=== PATIENT | female | born 1945 | race Caucasian/White ===

== ENCOUNTER 2016-05-05 10:39 | Outpatient (RCR) | payer MEDICARE, OTHER ==
--- OUTSIDE RECORDS SUMMARY | 2016-04-05 13:24 | XMS REPORT | Continuity of Care Document ---
Author Author [facility] Organization [facility] Address Unknown Phone Unavailable Care Team Providers Care Ell Teacher Name Role Phone Junie Peace PCP [phone] Source Comments Some departments are not documenting in the electronic medical record. If you do not see the information that you expected, contact Release of Information in the Health Information Management department at [phone] for further assistance in locating additional records.[facility] Active Allergies and Adverse Reactions Not on File Current Medications Not on file Active Problems Not on file Most Recent Encounters Date Type Specialty Providers Description [facility]2016 [facility] Airway obstruction due to Encounter foreign body, initial encounter Social History Tobacco Use Types Packs/Day Years Used Date Never Assessed Plan of Care Health Maintenance Due Date Last Done Comments Physical (Comprehensive) 1952 Exam Pertussis Vaccine 1954 Tetanus Vaccine 1960 Breast Cancer Screening 1983 Colorectal Cancer 1993 Screening Shingles Vaccine 2003 Osteoporosis Screening 2008 Prevnar/Pneumovax (#1) 2008 Influenza Vaccine 02/26/2016 Results from Last 3 Months Not on file
[2016-04-05 14:26] LABS: BASOPHILS % (AUTO) 0 % (0-10); EOSINOPHILS # (AUTO) 0.1 10^3/uL (0.0-0.3); EOSINOPHILS % (AUTO) 1 % (0-10); LYMPHOCYTES # (AUTO) 0.5 X 10^3 (1.0-4.0); LYMPHOCYTES % (AUTO) 7 % (12-44); MEAN CORPUSCULAR HEMOGLOBIN 31 PG (25-34); MEAN CORPUSCULAR HGB CONC 31 G/DL (32-36); MEAN CORPUSCULAR VOLUME 99 FL (80-99); MEAN PLATELET VOLUME 7.9 FL (7.4-10.4); MONOCYTES # (AUTO) 0.4 X 10^3 (0.0-1.0); MONOCYTES % (AUTO) 6 % (0-12); NEUTROPHILS # (AUTO) 5.8 X 10^3 (1.8-7.8); NEUTROPHILS % (AUTO) 85 % (42-75); PLATELET COUNT 289 10^3/uL (130-400); RED BLOOD COUNT 3.63 10^6/uL (4.35-5.85); RED CELL DISTRIBUTION WIDTH 16.6 % (10.0-14.5); WHITE BLOOD COUNT 6.9 10^3/uL (4.3-11.0)
[2016-04-05 15:27] LABS: ALANINE AMINOTRANSFERASE 16 U/L (0-55); ANION GAP 13 MMOL/L (5-14); ASPARTATE AMINO TRANSFERASE 20 U/L (5-34); BILIRUBIN,TOTAL 0.2 MG/DL (0.1-1.0); BLOOD UREA NITROGEN 26 MG/DL (7-18); BUN/CREATININE RATIO 31; CARBON DIOXIDE 24 MMOL/L (21-32); CHLORIDE 102 MMOL/L (98-107); CREATININE SERUM 0.84 MG/DL (0.60-1.30); GFR ESTIMATED > 60; GLUCOSE 116 MG/DL (70-105); LACTATE DEHYDROGENASE 234 U/L (125-220); POTASSIUM 4.8 MMOL/L (3.6-5.0); SODIUM 139 MMOL/L (135-145); TOTAL PROTEIN 6.8 G/DL (6.4-8.2); URIC ACID 5.5 MG/DL (2.6-7.2)
[~2016-05-05 10:39] MED LIST: ACET1TAB19 PO; ACHYD1T PO; ACLI400A IH; ACYC400T PO; ASP325T PO; ASPI1TAB PO; ATRV10T PO; BIOT25006 PO; BREO ELLIPTA IH; BUDE10.22 IH; BUDE6HFA IH; CALC-671 PO; CALC-78 PO; CALC-80 PO; CELE200C PO; CHOL200025 PO; CHOL200035 PO; CHOL400T29 PO; CLNZ.5T PO; CLON0.5T3 PO; CLON1TAB PO; CLON1TAB3 PO; CYCL10TA45 PO; DCS100C PO; DULO30CA3 PO; DULO60CA6 PO; ENAL10TA PO; ENAL2.5T PO; FLAX SEED OIL PO; FLAX100011 PO; FLAX100032 PO; FLUT1AER IH; GABA300C PO; GBPN300C PO; HYDR-2890 PO; HYDR-3063 PO; HYDR-3714 PO; HYDR-3816 PO; HYDR-3820 PO; HYDR1TAB66 PO; IBP600T1 PO; IBUP-30 PO; IBUP400T22 PO; IPRA3AMP IH; IRON150C3 PO; LATA2.5D5 OS; LEVO100T46 PO; LEVO75TA PO; LEVO75TA59 PO; LEVO88TA54 PO; LORA10TA7 PO; MAGN400C PO; MAGN500C4 PO; MELO15TA39 PO; METF-472 PO; METF500T8 PO; METO25TA2 PO; METR500T PO; MG T1TAB PO; MONT10TA21 PO; MORP-33 PO; MORP-34 PO; MTF500T PO; MULT-974 PO; NIFEREX PO; OMEG1CAP51 PO; OMEG1CAP57 PO; OMEP-10 PO; PANT40TA PO; PANT40TA2 PO; PRAS1TAB2 PO; PRD10T PO; PRD20T PO; PRED5TAB PO; ROPI0.25 PO; RT-ALBUINH IH; SENN-75 PO; SULF-222 PO; TBDXOO OS; TIZA4CAP PO; TML5OP2.5 OS; TRAM50TA2 PO; ZLP10T PO; [UNRECOGNIZED DRUG - CODE] OS; breo ellipta PO; calcium PO; stool softener PO
[2016-05-05 11:22] LABS: BASOPHILS % (AUTO) 0 % (0-10); EOSINOPHILS # (AUTO) 0.1 10^3/uL (0.0-0.3); EOSINOPHILS % (AUTO) 1 % (0-10); LYMPHOCYTES # (AUTO) 0.6 X 10^3 (1.0-4.0); LYMPHOCYTES % (AUTO) 6 % (12-44); MEAN CORPUSCULAR HEMOGLOBIN 31 PG (25-34); MEAN CORPUSCULAR HGB CONC 31 G/DL (32-36); MEAN CORPUSCULAR VOLUME 100 FL (80-99); MEAN PLATELET VOLUME 8.1 FL (7.4-10.4); MONOCYTES # (AUTO) 0.7 X 10^3 (0.0-1.0); MONOCYTES % (AUTO) 8 % (0-12); NEUTROPHILS # (AUTO) 7.9 X 10^3 (1.8-7.8); NEUTROPHILS % (AUTO) 85 % (42-75); PLATELET COUNT 303 10^3/uL (130-400); RED BLOOD COUNT 3.75 10^6/uL (4.35-5.85); RED CELL DISTRIBUTION WIDTH 16.3 % (10.0-14.5); WHITE BLOOD COUNT 9.3 10^3/uL (4.3-11.0)
[2016-05-05 12:11] LABS: ALANINE AMINOTRANSFERASE 24 U/L (0-55); ALBUMIN 4.3 G/DL (3.2-4.5); ANION GAP 8 MMOL/L (5-14); ASPARTATE AMINO TRANSFERASE 22 U/L (5-34); BILIRUBIN,TOTAL 0.5 MG/DL (0.1-1.0); BLOOD UREA NITROGEN 26 MG/DL (7-18); BUN/CREATININE RATIO 30; CALCIUM 9.2 MG/DL (8.5-10.1); CARBON DIOXIDE 30 MMOL/L (21-32); CHLORIDE 101 MMOL/L (98-107); CREATININE SERUM 0.86 MG/DL (0.60-1.30); GFR ESTIMATED > 60; GLUCOSE 104 MG/DL (70-105); LACTATE DEHYDROGENASE 260 U/L (125-220); POTASSIUM 4.8 MMOL/L (3.6-5.0); SODIUM 139 MMOL/L (135-145); TOTAL PROTEIN 7.4 G/DL (6.4-8.2); URIC ACID 5.4 MG/DL (2.6-7.2)
== END 2016-07-04 | disposition home or self-care (01) ==
LOC: ONC 10:39
PROVIDERS: ATTEND Internal Medicine Hematology & Oncology
DX: C84.40 Peripheral T-cell lymphoma, not elsewhere classified, unspecified site (principal); M06.9 Rheumatoid arthritis, unspecified; E11.9 Type 2 diabetes mellitus without complications; J44.9 Chronic obstructive pulmonary disease, unspecified; I25.10 Atherosclerotic heart disease of native coronary artery without angina pectoris; I11.0 Hypertensive heart disease with heart failure; I50.9 Heart failure, unspecified; E03.9 Hypothyroidism, unspecified; D50.9 Iron deficiency anemia, unspecified; Z79.899 Other long term (current) drug therapy
CPT/HCPCS: 36415; 80053; 83615; 84550; 85025; 99213

== ENCOUNTER 2016-10-14 09:47 | Outpatient (RCR) | payer MEDICARE, OTHER ==
[2016-10-14 10:10] LABS: BASOPHILS # (AUTO) 0.1 10^3/uL (0.0-0.1); BASOPHILS % (AUTO) 0 % (0-10); EOSINOPHILS # (AUTO) 0.2 10^3/uL (0.0-0.3); EOSINOPHILS % (AUTO) 2 % (0-10); LYMPHOCYTES # (AUTO) 0.6 X 10^3 (1.0-4.0); LYMPHOCYTES % (AUTO) 6 % (12-44); MEAN CORPUSCULAR HEMOGLOBIN 31 PG (25-34); MEAN CORPUSCULAR HGB CONC 31 G/DL (32-36); MEAN CORPUSCULAR VOLUME 100 FL (80-99); MEAN PLATELET VOLUME 8.2 FL (7.4-10.4); MONOCYTES # (AUTO) 0.5 X 10^3 (0.0-1.0); MONOCYTES % (AUTO) 5 % (0-12); NEUTROPHILS # (AUTO) 9.8 X 10^3 (1.8-7.8); NEUTROPHILS % (AUTO) 88 % (42-75); PLATELET COUNT 525 10^3/uL (130-400); RED BLOOD COUNT 3.31 10^6/uL (4.35-5.85); RED CELL DISTRIBUTION WIDTH 14.5 % (10.0-14.5); WHITE BLOOD COUNT 11.2 10^3/uL (4.3-11.0)
[2016-10-14 11:03] LABS: ALBUMIN 3.9 G/DL (3.2-4.5); BILIRUBIN,TOTAL 0.3 MG/DL (0.1-1.0); CALCIUM 9.6 MG/DL (8.5-10.1); CREATININE SERUM 0.99 MG/DL (0.60-1.30); POTASSIUM 5.1 MMOL/L (3.6-5.0); TOTAL PROTEIN 7.2 G/DL (6.4-8.2); URIC ACID 6.5 MG/DL (2.6-7.2)
[2016-12-16] MEDS ORDERED: GABA-488 PO (09:08)
[2016-12-16] MEDS ORDERED: METF500T4 PO (09:08)
[2016-12-16] MEDS ORDERED: DICL100G18 TOP (09:08)
[2016-12-16] MEDS ORDERED: HYDR-3820 PO (09:08)
[2016-12-16] MEDS ORDERED: PANT40TA3 PO (09:08)
[2016-12-16] MEDS ORDERED: PRD20T PO (09:08)
[2016-12-16] MEDS ORDERED: CLOB15OI2 TOP (09:08)
[2016-12-16] MEDS ORDERED: MORP60TA52 PO (09:08)
[2016-12-16] MEDS ORDERED: UMEC62.5 IH (09:23)
[2016-12-20] MEDS ORDERED: METH40VI2 IV (10:21)
[2016-12-20] MEDS ORDERED: TACR30OI4 TP (10:21)
[2016-12-20] MEDS ORDERED: AMLO10TA2 PO (10:21)
[2016-12-20] MEDS ORDERED: MORP-33 PO (10:21)
[2016-12-20] MEDS ORDERED: METO50TA2 PO (10:21)
[2016-12-20] MEDS ORDERED: FURO10VI IVP (10:21)
[2016-12-29] MEDS ORDERED: PRD20T PO (09:28)
[2016-12-29] MEDS ORDERED: POTA10TA6 PO (09:28)
[2016-12-29] MEDS ORDERED: FAMO20TA5 PO (09:28)
== END 2017-01-12 | disposition home or self-care (01) ==
LOC: ONC 09:47
PROVIDERS: ATTEND Internal Medicine Hematology & Oncology
DX: C84.40 Peripheral T-cell lymphoma, not elsewhere classified, unspecified site (principal); M06.9 Rheumatoid arthritis, unspecified; E11.9 Type 2 diabetes mellitus without complications; J44.9 Chronic obstructive pulmonary disease, unspecified; I25.10 Atherosclerotic heart disease of native coronary artery without angina pectoris; I11.0 Hypertensive heart disease with heart failure; I50.9 Heart failure, unspecified; E03.9 Hypothyroidism, unspecified; D50.9 Iron deficiency anemia, unspecified; Z79.899 Other long term (current) drug therapy
CPT/HCPCS: 36415; 80053; 83615; 84550; 85025; 99213

== ENCOUNTER → 2016-10-14 | Outpatient (CLI) | payer MEDICARE, OTHER ==
--- NOTE | 2016-10-14 15:25 | Diagnostic Imaging Report ---
PA and lateral views of the chest. INDICATION: Left lower lobe pneumonia. FINDINGS: When compared to 02/28/2016, there is interval clearance of the infiltrate in the right lung base. There is still prominence of the right mediastinal contour at the level of the ascending aorta. There was a concurrent CTA performed at the time of the previous scan which demonstrated dilatation of the ascending aorta to 4.2 cm and dilatation of the pulmonary artery. The heart size is at the upper limits of normal. No effusion or pneumothorax. Advanced degenerative changes in the thoracic spine are seen and bilateral shoulder replacement noted. IMPRESSION: Prominent right mediastinal contour appears to relate to mild aneurysmal dilatation of the ascending aorta and dilated pulmonary artery is probably related to pulmonary hypertension. No acute process. Dictated by: Dictated on workstation # [id number]
== END ==
LOC: RAD 11:59
PROVIDERS: ATTEND Nurse Practitioner Family
DX: J18.9 Pneumonia, unspecified organism (principal)
CPT/HCPCS: 71020

== ENCOUNTER → 2016-12-06 | Outpatient (CLI) | payer MEDICARE, OTHER ==
--- NOTE | 2016-12-06 13:48 | Diagnostic Imaging Report ---
PROCEDURE: CT chest without contrast. TECHNIQUE: Multiple contiguous axial images were obtained through the chest without the use of intravenous contrast. INDICATION: Pneumonia. FINDINGS: There is coronary artery atherosclerosis. There is aortic calcific atherosclerosis. There is no hilar or mediastinal lymphadenopathy. There is minimal discoid atelectasis at the lung bases. The infiltrates in the right lung have nearly completely resolved since the prior exam from 02/28/2016. There is a 6 mm patchy density in the right upper lobe on page 15 of 55 that was not present previously. It could represent small inflammatory reaction, but a short interval CT followup in 3-4 months is recommended. IMPRESSION: Interval clearing of the previously seen infiltrates in the lungs. There is a small new opacity in the right upper lobe that warrants followup. Dictated by: Dictated on workstation # [id number]
== END ==
LOC: RAD 13:29
PROVIDERS: ATTEND Internal Medicine Critical Care Medicine
DX: R09.02 Hypoxemia (principal); J18.9 Pneumonia, unspecified organism; M79.7 Fibromyalgia; M19.90 Unspecified osteoarthritis, unspecified site
CPT/HCPCS: 71250

== ENCOUNTER 2016-12-09 08:00 | Outpatient (RCR) | payer MEDICARE, OTHER ==
[2016-12-16] MEDS ORDERED: METF500T4 PO (09:08)
[2016-12-16] MEDS ORDERED: HYDR-3820 PO (09:08)
[2016-12-16] MEDS ORDERED: DICL100G18 TOP (09:08)
[2016-12-16] MEDS ORDERED: PANT40TA3 PO (09:08)
[2016-12-16] MEDS ORDERED: MORP60TA52 PO (09:08)
[2016-12-16] MEDS ORDERED: PRD20T PO (09:08)
[2016-12-16] MEDS ORDERED: GABA-488 PO (09:08)
[2016-12-16] MEDS ORDERED: CLOB15OI2 TOP (09:08)
[2016-12-16] MEDS ORDERED: UMEC62.5 IH (09:23)
[2016-12-20] MEDS ORDERED: METO50TA2 PO (10:21)
[2016-12-20] MEDS ORDERED: FURO10VI IVP (10:21)
[2016-12-20] MEDS ORDERED: METH40VI2 IV (10:21)
[2016-12-20] MEDS ORDERED: AMLO10TA2 PO (10:21)
[2016-12-20] MEDS ORDERED: MORP-33 PO (10:21)
[2016-12-20] MEDS ORDERED: TACR30OI4 TP (10:21)
[2016-12-29] MEDS ORDERED: FAMO20TA5 PO (09:28)
[2016-12-29] MEDS ORDERED: POTA10TA6 PO (09:28)
[2016-12-29] MEDS ORDERED: PRD20T PO (09:28)
== END 2017-02-06 | disposition home or self-care (01) ==
LOC: PULM 08:00
PROVIDERS: ATTEND Internal Medicine Critical Care Medicine
DX: R09.02 Hypoxemia (principal); J18.9 Pneumonia, unspecified organism; M79.7 Fibromyalgia; M19.90 Unspecified osteoarthritis, unspecified site
CPT/HCPCS: 99211

== ENCOUNTER 2016-12-10 08:04 | Outpatient (RCR) | payer MEDICARE, OTHER ==
[2016-12-16] MEDS ORDERED: METF500T4 PO (09:08)
[2016-12-16] MEDS ORDERED: CLOB15OI2 TOP (09:08)
[2016-12-16] MEDS ORDERED: GABA-488 PO (09:08)
[2016-12-16] MEDS ORDERED: DICL100G18 TOP (09:08)
[2016-12-16] MEDS ORDERED: PANT40TA3 PO (09:08)
[2016-12-16] MEDS ORDERED: MORP60TA52 PO (09:08)
[2016-12-16] MEDS ORDERED: HYDR-3820 PO (09:08)
[2016-12-16] MEDS ORDERED: PRD20T PO (09:08)
[2016-12-16] MEDS ORDERED: UMEC62.5 IH (09:23)
[2016-12-20] MEDS ORDERED: METH40VI2 IV (10:21)
[2016-12-20] MEDS ORDERED: MORP-33 PO (10:21)
[2016-12-20] MEDS ORDERED: FURO10VI IVP (10:21)
[2016-12-20] MEDS ORDERED: AMLO10TA2 PO (10:21)
[2016-12-20] MEDS ORDERED: TACR30OI4 TP (10:21)
[2016-12-20] MEDS ORDERED: METO50TA2 PO (10:21)
[2016-12-29] MEDS ORDERED: FAMO20TA5 PO (09:28)
[2016-12-29] MEDS ORDERED: POTA10TA6 PO (09:28)
[2016-12-29] MEDS ORDERED: PRD20T PO (09:28)
== END 2017-01-06 | disposition home or self-care (01) ==
LOC: WOUNDCARE 08:04
PROVIDERS: ATTEND Surgery
DX: E11.622 Type 2 diabetes mellitus with other skin ulcer (principal); L95.8 Other vasculitis limited to the skin; L97.322 Non-pressure chronic ulcer of left ankle with fat layer exposed; L97.222 Non-pressure chronic ulcer of left calf with fat layer exposed; L97.312 Non-pressure chronic ulcer of right ankle with fat layer exposed; C91.51 Adult T-cell lymphoma/leukemia (HTLV-1-associated), in remission
CPT/HCPCS: 11042; 15271; 87070; 87075; 87077; 87186; 87205; 99215

== ENCOUNTER 2016-12-21 10:25 | Inpatient (IN) | payer MEDICARE, OTHER ==
[~2016-12-21] VITALS: Ht 162.6 cm; Wt 63.2 kg
[~2016-12-21 10:25] MED LIST changes: +AMLO10TA2 PO; +CLOB15OI2 TOP; +DICL100G18 TOP; +FURO10VI IVP; +GABA-488 PO; +METF500T4 PO; +METH40VI2 IV; +METO50TA2 PO; +MORP60TA52 PO; +PANT40TA3 PO; +TACR30OI4 TP; +UMEC62.5 IH
--- OUTSIDE RECORDS SUMMARY | 2016-12-21 10:40 | XMS REPORT | Continuity of Care Document ---
Author Author [facility] Organization [facility] Address Unknown Phone Unavailable Care Team Providers Care Pharmacy Grad Intern Name Role Phone Kaela Peace PCP [phone] Source Comments Some departments are not documenting in the electronic medical record. If you do not see the information that you expected, contact Release of Information in the Health Information Management department at [phone] for further assistance in locating additional records.[facility] Active Allergies and Adverse Reactions Not on File Current Medications Not on file Active Problems Not on file Social History Tobacco Use Types Packs/Day Years Used Date Never Assessed Plan of Care Health Maintenance Due Date Last Done Comments Physical (Comprehensive) 1952 Exam Pertussis Vaccine 1954 Tetanus Vaccine 1960 Breast Cancer Screening 1983 Colorectal Cancer 1993 Screening Shingles Vaccine 2003 Osteoporosis Screening 2008 Prevnar/Pneumovax (#1) 2008 Influenza Vaccine 02/25/2017 Results from Last 3 Months Not on file
[2016-12-21] MEDS ORDERED: RT-ALBUTEROL/IPRATROPIUM 3 ML (DUONEB) VIAL IH PRN (10:45)
[2016-12-21] MEDS ORDERED: RT-ALBUTEROL SULF 2.5 MG/3 ML PRE-MIX VIAL IH PRN (10:45)
[2016-12-21] MEDS ORDERED: meTOprolol 5 MG/5 ML (LOPRESSOR) VIAL IV PRN (10:45)
--- OUTSIDE RECORDS SUMMARY | 2016-12-21 10:45 | XMS REPORT | Continuity of Care Document ---
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 05/26/1048 LAURA SMITH Ot D50.9 IRON DEFICIENCY ANEMIA, UNSPECIFIED 05/26/1048 LAURA SMITH Ot E03.9 HYPOTHYROIDISM, UNSPECIFIED 05/26/1048 LAURA SMITH Ot E11.9 TYPE 2 DIABETES MELLITUS WITHOUT COMPLIC 05/26/1048 LAURA SMITH Ot I10 ESSENTIAL (PRIMARY) HYPERTENSION 05/26/1048 LAURA SMITH Ot I25.10 ATHSCL HEART DISEASE OF [place] CORONARY 05/26/1048 LAURA SMITH Ot I50.9 HEART FAILURE, UNSPECIFIED 05/26/1048 LAURA SMITH Ot J44.9 CHRONIC OBSTRUCTIVE PULMONARY DISEASE, U 05/26/1048 LAURA SMITH Ot M06.9 RHEUMATOID ARTHRITIS, UNSPECIFIED 05/26/1048 LAURA SMITH Ot Z79.899 OTHER VOCAL ARTIST (CURRENT) DRUG THERAPY 02/12/2013 BRITT SAEED DO Ot 724.2 LUMBAGO 03/12/2013 MORRO MAYORGA, ARAVIND Younger Ot 722.10 LUMBAR DISC DISPLACEMENT 04/26/2013 ALLEN ROUSSEAU MD Ot 009.0 INFECTIOUS ENTERITIS NOS 04/26/2013 ALLEN ROUSSEAU MD Ot 244.9 HYPOTHYROIDISM NOS 04/26/2013 ALLEN ROUSSEAU MD Ot 250.00 DIAB PARVEZ WO COMPL, TYPE II OR UNSPEC TY 04/26/2013 ALLEN ROUSSEAU MD Ot 305.1 TOBACCO USE DISORDER 04/26/2013 ALLEN ROUSSEAU MD Ot 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 04/26/2013 ALLEN ROUSSEAU MD Ot 365.9 GLAUCOMA NOS 04/26/2013 ALLEN ROUSSEAU MD Ot 401.9 HYPERTENSION NOS 04/26/2013 ALLEN ROUSSEAU MD Ot 424.0 MITRAL VALVE DISORDER 04/26/2013 ALLEN ROUSSEAU MD Ot 425.4 PRIM CARDIOMYOPATHY NEC 04/26/2013 ALLEN ROUSSEAU MD Ot 447.6 ARTERITIS NOS 04/26/2013 ALLEN ROUSSEAU MD Ot 493.20 CHRONIC OBSTRUCTIVE ASTHMA, NOS 04/26/2013 ALLEN ROUSSEAU MD Ot 530.81 ESOPHAGEAL REFLUX 04/26/2013 ALLEN ROUSSEAU MD Ot E933.1 ADV EFF ANTINEOPLASTIC 04/26/2013 ALLEN ROUSSEAU MD Ot V10.11 HX-BRONCHOGENIC MALIGNAN 04/26/2013 ALLEN ROUSSEAU MD Ot V45.89 POSTSURGICAL STATES NEC 04/26/2013 ALLEN ROUSSEAU MD Ot V58.65 LONG-TERM(CURRENT)USE OF STEROIDS 04/26/2013 ALLEN ROUSSEAU MD Ot V87.41 PERSONAL HISTORY OF ANTINEOPLASTIC CHEMO 05/11/2013 ELMER MAYORGA, RYAN Yougner Ot 211.3 BENIGN NEOPLASM LG BOWEL 05/11/2013 RYAN PAYNE MD Ot 578.9 GASTROINTEST HEMORR NOS 05/16/2013 BRAXTON LAUREN MD Ot 244.9 HYPOTHYROIDISM NOS 05/16/2013 BRAXTON LAUREN MD Ot 250.00 DIAB PARVEZ WO COMPL, TYPE II OR UNSPEC TY 05/16/2013 BRAXTON LAUREN MD Ot 365.04 OCULAR HYPERTENSION 05/16/2013 BRAXTON LAUREN MD Ot 414.01 CORONARY ATHEROSCLEROSIS OF [place] CORON 05/16/2013 BRAXTON LAUREN MD Ot 414.4 CORONARY ATHEROSCLEROSIS DUE TO CALCIFIE 05/16/2013 BRAXTON LAUREN MD Ot 428.0 CONGESTIVE HEART FAILURE NOS 05/16/2013 BRAXTON LAUREN MD Ot 428.20 UNSPEC SYSTOLIC HRT FAILURE 05/16/2013 BRAXTON LAUREN MD Ot 496 CHR AIRWAY OBSTRUCT NEC 05/16/2013 LEONIDAS MAYORGA, BRAXTON Ashton Ot 794.30 ABN CARDIOVASC STUDY NOS 05/16/2013 LEONIDAS MAYORGA, BRAXTON Ashton Ot V10.11 HX-BRONCHOGENIC MALIGNAN 05/16/2013 BRAXTON LAUREN MD Ot V58.69 OTH MED,LT,CURRENT USE 09/24/2013 MARJORIE KENDALL DO Ot 162.9 MAL BREANN BRONCH/LUNG NOS 09/24/2013 MARJORIE KENDALL DO Ot 414.00 CORON ATHEROSCLER NOS TYPE VESSEL, NATIV 09/24/2013 MARJORIE KENDALL DO M Ot 428.0 CONGESTIVE HEART FAILURE NOS 09/24/2013 MARJORIE KENDALL DO Ot 496 CHR AIRWAY OBSTRUCT NEC 09/24/2013 MARJORIE KENDALL DO Ot 786.05 SHORTNESS OF BREATH 12/26/2013 MARJORIE KENDALL DO Ot 162.9 MAL BREANN BRONCH/LUNG NOS 12/26/2013 MARJORIE KENDALL DO M Ot 414.00 CORON ATHEROSCLER NOS TYPE VESSEL, NATIV 12/26/2013 MARJORIE KENDALL DO M Ot 428.0 CONGESTIVE HEART FAILURE NOS 12/26/2013 MARJORIE KENDALL DO M Ot 496 CHR AIRWAY OBSTRUCT NEC 12/26/2013 SKYLAR KENDALL DOSON M Ot 786.05 SHORTNESS OF BREATH 01/02/2014 LAURA SMTIH N Ot 162.9 MAL BREANN BRONCH/LUNG NOS 01/02/2014 LAURA SMITH N Ot 198.89 SECONDARY MALIG BREANN NEC 01/02/2014 LAURA SMITH N Ot 202.70 PERIPHERAL T CELL LYMPHOMA, [facility] SITE, X 01/02/2014 LAURA SMITH N Ot 250.00 DIAB PARVEZ WO COMPL, TYPE II OR UNSPEC TY 01/02/2014 LAURA SMITH N Ot 496 CHR AIRWAY OBSTRUCT NEC 01/02/2014 LAURA SMITH N Ot 729.1 MYALGIA AND MYOSITIS NOS 01/02/2014 LAURA SMITH Ot V58.69 OTH MED,LT,CURRENT USE 04/03/2014 LAURA SMITH N Ot 162.9 MAL BREANN BRONCH/LUNG NOS 04/03/2014 LAURA SMITH N Ot 198.89 SECONDARY MALIG BREANN NEC 04/03/2014 LAURA SMITH N Ot 202.70 PERIPHERAL T CELL LYMPHOMA, UNSP SITE, X 04/03/2014 LUIS, BOBAN N Ot 250.00 DIAB PARVEZ WO COMPL, TYPE II OR UNSPEC TY 04/03/2014 LUIS, BOBAN N Ot 496 CHR AIRWAY OBSTRUCT NEC 04/03/2014 LUIS, BOBAN N Ot 729.1 MYALGIA AND MYOSITIS NOS 04/03/2014 LUIS BOBAN N Ot V58.69 OTH MED,LT,CURRENT USE 05/16/2014 BLAYNE DO, SHANNAN F Ot 244.9 HYPOTHYROIDISM NOS 05/16/2014 BLAYNE DO, SHANNAN F Ot 250.00 DIAB PARVEZ WO COMPL, TYPE II OR UNSPEC TY 05/16/2014 BLAYNE DO, SHANNAN F Ot 401.9 HYPERTENSION NOS 05/16/2014 BLAYNE DO, SHANNAN F Ot 414.01 CORONARY ATHEROSCLEROSIS OF [place] CORON 05/16/2014 BLAYNE DO, SHANNAN F Ot 496 CHR AIRWAY OBSTRUCT NEC 05/16/2014 BLAYNE DO, SHANNAN F Ot 530.81 ESOPHAGEAL REFLUX 05/16/2014 BLAYNE DO, SHANNAN F Ot 715.31 LOC OSTEOARTH NOS-SHLDER 05/16/2014 BLAYNE DO, SHANNAN F Ot V46.2 SUPPLEMENTAL OXYGEN 05/16/2014 LUIS, BOBAN N Ot 162.9 05/16/2014 LUIS, BOBAN N Ot 198.89 05/16/2014 LUIS, BOBAN N Ot 202.70 05/16/2014 LUIS, BOBAN N Ot 250.00 05/16/2014 LUIS, BOBAN N Ot 496 05/16/2014 LUIS, BOBAN N Ot 729.1 05/16/2014 LUIS, BOBAN N Ot V58.69 05/16/2014 LUIS, BOBAN N Ot 162.9 05/16/2014 LUIS, BOBAN N Ot 198.89 05/16/2014 LUIS, BOBAN N Ot 202.70 05/16/2014 LUIS, BOBAN N Ot 250.00 05/16/2014 LUIS, BOBAN N Ot 496 05/16/2014 LUIS, BOBAN N Ot 729.1 05/16/2014 LUIS, BOBAN N Ot V58.69 05/27/2014 LUIS, BOBAN N Ot 162.9 05/27/2014 LUIS, BOBAN N Ot 198.89 05/27/2014 LAURA SMITH N Ot 202.70 05/27/2014 LAURA SMIHT Ot 250.00 05/27/2014 LAURA SMITH Ot 496 05/27/2014 LAURA SMITH Ot 729.1 05/27/2014 LUISLAURA JESUS Ot V58.69 06/03/2014 BLAYNE DO, SHANNAN F Ot 162.9 06/03/2014 BLAYNE DO, SHANNAN F Ot 250.00 06/03/2014 BLAYNE DO, SHANNAN F Ot 496 06/03/2014 BLAYNE DO, SHANNAN F Ot 715.31 06/03/2014 BLAYNE DO, SHANNAN F Ot 791.9 06/03/2014 BLAYNE DO, SHANNAN F Ot V72.63 06/03/2014 BLAYNE DO, SHANNAN F Ot V74.8 06/04/2014 ELMER MAYORGA, RYAN Younger Ot 530.19 OTHER ESOPHAGITIS 06/26/2014 LEONIDAS MAYORGA, BRAXTON Ashton Ot 250.00 06/26/2014 LEONIDAS MAYORGA, BRAXTON [place] Ot 272.4 06/26/2014 LEONIDAS MAYORGA, BRAXTON [place] Ot 414.00 06/26/2014 LEONIDAS MAYORGA, BRAXTON [place]hton Ot 428.0 06/26/2014 MARJORIE KENDALL DO Ot 162.9 06/26/2014 MARJORIE KENDALL DO Ot 496 06/26/2014 MARJORIE KENDALL DO Ot 786.05 08/25/2014 LAURA SMITH Ot 162.9 MAL BREANN BRONCH/LUNG NOS 08/25/2014 LAURA SMITH N Ot 198.89 SECONDARY MALIG BREANN NEC 08/25/2014 LAURA SMITH Ot 202.70 PERIPHERAL T CELL LYMPHOMA, [facility] SITE, X 08/25/2014 LAURA SMITH N Ot 250.00 DIAB PARVEZ WO COMPL, TYPE II OR UNSPEC TY 08/25/2014 LAURA SMITH N Ot 272.4 HYPERLIPIDEMIA NEC/NOS 08/25/2014 LAURA SMITH N Ot 414.00 CORON ATHEROSCLER NOS TYPE VESSEL, NATIV 08/25/2014 LAURA SMITH N Ot 428.0 CONGESTIVE HEART FAILURE NOS 08/25/2014 LAURA SMITH N Ot 496 CHR AIRWAY OBSTRUCT NEC 08/25/2014 LAURA SMITH N Ot 729.1 MYALGIA AND MYOSITIS NOS 08/25/2014 LAURA SMITH Ot V58.69 OTH MED,LT,CURRENT USE 10/22/2014 ELMER MAYORGA, RYAN Younger Ot 784.42 DYSPHONIA 10/22/2014 ELMER MAYORGA, RYAN Younger Ot V12.71 PERSONAL HISTORY OF PEPTIC ULCER DISEASE 10/29/2014 Ot 162.9 10/29/2014 Ot 414.00 10/29/2014 Ot 428.0 10/29/2014 Ot 496 10/29/2014 Ot 786.05 10/29/2014 LAURA SMITH N Ot 162.9 10/29/2014 LAURA SMITH N Ot 198.89 10/29/2014 LAURA SMITH N Ot 202.70 10/29/2014 LAURA SMITH N Ot 250.00 10/29/2014 LAURA SMITH N Ot 496 10/29/2014 LAURA SMITH N Ot 729.1 10/29/2014 LAURA SMITH N Ot V58.69 10/29/2014 ELY ALVAREZ NAIL TECH Ot 162.9 10/29/2014 ELY ALVAREZ S NAIL TECH Ot 198.89 10/29/2014 ALVAREZELY Fallon S NAIL TECH Ot 202.70 10/29/2014 ELY ALVAREZ NAIL TECH Ot 250.00 10/29/2014 ELY ALVAREZ NAIL TECH Ot 496 10/29/2014 ELY ALVAREZ NAIL TECH Ot 729.1 10/29/2014 ELY ALVAREZ NAIL TECH Ot V58.69 10/30/2014 BLAYNE DO, SHANNAN F Ot 715.31 10/30/2014 BLAYNE DO, SHANNAN F Ot 791.9 10/30/2014 BLAYNE DO, SHANNAN F Ot V72.63 10/30/2014 BLAYNE DO, SHANNAN F Ot V74.8 11/08/2014 BLAYNE DO, SHANNAN F Ot 715.31 11/08/2014 BLAYNE DO, SHANNAN F Ot 791.9 11/08/2014 BLAYNE DO, SHANNAN F Ot V72.63 11/08/2014 BLAYNE DO, SHANNAN F Ot V74.8 11/14/2014 BLAYNE DO, SHANNAN F Ot 246.9 DISORDER OF THYROID NOS 11/14/2014 BLAYNE DO, SHANNAN F Ot 250.00 DIAB PARVEZ WO COMPL, TYPE II OR UNSPEC TY 11/14/2014 BLAYNE DO, SHANNAN Montaño Ot 272.0 PURE HYPERCHOLESTEROLEM 11/14/2014 BLAYNE DO, SHANNAN Montaño Ot 285.1 AC POSTHEMORRHAG ANEMIA 11/14/2014 BLAYNE DO, SHANNAN Montaño Ot 401.9 HYPERTENSION NOS 11/14/2014 BLAYNE DO, SHANNAN Montaño Ot 424.0 MITRAL VALVE DISORDER 11/14/2014 BLAYNE DO, SHANNAN Montaño Ot 496 CHR AIRWAY OBSTRUCT NEC 11/14/2014 BLAYNE DO, SHANNAN Montaño Ot 715.31 LOC OSTEOARTH NOS-SHLDER 11/14/2014 BLAYNE DO, SHANNAN Montaño Ot 726.10 BURSAE TENDONS DIS SHLDER NOS 01/30/2015 LUIS, BOBAN N Ot 162.9 01/30/2015 LUIS, BOBAN N Ot 198.89 01/30/2015 LUIS, BOBAN N Ot 202.70 01/30/2015 LUIS, BOBAN N Ot 250.00 01/30/2015 LUIS, BOBAN N Ot 496 01/30/2015 LUIS, BOBAN N Ot 729.1 01/30/2015 LUIS, BOBAN N Ot V58.69 02/05/2015 LUIS, BOBAN N Ot 162.9 02/05/2015 LUIS, BOBAN N Ot 198.89 02/05/2015 LUIS, BOBAN N Ot 202.70 02/05/2015 LUIS, BOBAN N Ot 250.00 02/05/2015 LUIS, BOBAN N Ot 496 02/05/2015 LUIS, BOBAN N Ot 729.1 02/05/2015 LUIS, BOBAN N Ot V58.69 02/12/2015 YANIQUE MAYORGA, NOHEMY Ashton Ot 723.0 02/12/2015 NOHEMY CHANEL MD Ot 724.02 02/24/2015 MARJORIE KENDALL DO Ot 414.00 02/24/2015 MARJORIE KENDALL DO Ot 428.0 02/24/2015 MARJORIE KENDALL DO Ot 496 02/24/2015 MARJORIE KENDALL DO Ot 785.0 02/26/2015 NOHEMY CHANEL MD Ot 723.0 02/26/2015 NOHEMY CHANEL MD Ot 724.02 03/12/2015 LAURA SMITH Ot 162.9 03/12/2015 LAURA SMITH N Ot 198.89 03/12/2015 LAURA SMITH N Ot 202.70 03/12/2015 LAURA SMITH N Ot 250.00 03/12/2015 LAURA SMITH N Ot 496 03/12/2015 LAURA SMITH N Ot 729.1 03/12/2015 LAURA SMITH Ot V58.69 03/13/2015 JHONY BAUMANN NAIL TECH Ot 715.36 03/13/2015 JHONY BAUMANN NAIL TECH Ot 719.06 03/13/2015 JHONY BAUMANN NAIL TECH Ot 729.81 03/18/2015 MARJORIE KENDALL DO Ot 327.26 SLEEP RELATED HYPOVENTILATION/HYPOXEMIA 03/18/2015 MARJORIE KENDALL DO Ot 786.09 RESPIRATORY ABNORM NEC 03/21/2015 MARJORIE KENDALL DO Ot 496 03/21/2015 MARJORIE KENDALL DO Ot 786.05 03/21/2015 MARJORIE KENDALL DO Ot 793.11 03/25/2015 NOHEMY CHANEL MD Ot 250.00 DIAB PARVEZ WO COMPL, TYPE II OR UNSPEC TY 03/25/2015 NOHEMY CHANEL MD Ot 272.0 PURE HYPERCHOLESTEROLEM 03/25/2015 NOHEMY CHANEL MD Ot 401.9 HYPERTENSION NOS 03/25/2015 NOHEMY CHANEL MD Ot 496 CHR AIRWAY OBSTRUCT NEC 03/25/2015 NOHEMY CHANEL MD Ot 724.03 SPINAL STENOSIS, LUMBAR REGION, W NEUROG 03/25/2015 NOHEMY CHANEL MD Ot V15.82 HISTORY OF TOBACCO USE 03/26/2015 LAURA SMITH Ot 162.9 MAL BREANN BRONCH/LUNG NOS 03/26/2015 LAURA SMITH Ot 198.89 SECONDARY MALIG BREANN NEC 03/26/2015 LAURA SMITH N Ot 202.70 PERIPHERAL T CELL LYMPHOMA, [facility] SITE, X 03/26/2015 LAURA SMITH N Ot 250.00 DIAB PARVEZ WO COMPL, TYPE II OR UNSPEC TY 03/26/2015 LAURA SMITH N Ot 496 CHR AIRWAY OBSTRUCT NEC 03/26/2015 LAURA SMITH Ot 729.1 MYALGIA AND MYOSITIS NOS 03/26/2015 LAURA SMITH Ot V58.69 OT MED,LT,CURRENT USE 06/12/2015 ELY ALVAREZ NAIL TECH Ot C34.90 06/12/2015 ELY ALVAREZ S NAIL TECH Ot C79.89 06/12/2015 ELY ALVAREZ NAIL TECH Ot C84.40 06/12/2015 ELY ALVAREZ NAIL TECH Ot E11.9 06/12/2015 ELY ALVAREZ NAIL TECH Ot J44.9 06/12/2015 ELY ALVAREZ NAIL TECH Ot Z79.899 11/13/2015 LAURA SMITH N Ot C34.90 MALIGNANT NEOPLASM OF [place] PART OF UNSP 11/13/2015 LAURA SMITH Liyah Ot C79.89 SECONDARY MALIGNANT NEOPLASM OF OTHER SP 11/13/2015 LUIS GENIANATHALIE Liyah Ot 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, 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 11/13/2015 LAURA SMITH Liyah Ot E11.9 TYPE 2 DIABETES MELLITUS WITHOUT COMPLIC 11/13/2015 LAURA SMITH N Ot J44.9 CHRONIC OBSTRUCTIVE PULMONARY DISEASE, U 11/13/2015 LAURA SMITH N Ot M06.9 RHEUMATOID ARTHRITIS, UNSPECIFIED 11/13/2015 LAURA SMITH N Ot Z79.899 OTHER VOCAL ARTIST (CURRENT) DRUG THERAPY 12/21/2015 ELY ALVAREZ NAIL TECH Ot C34.90 MALIGNANT NEOPLASM OF [place] PART OF UNSP 12/21/2015 ELY ALVAREZ NAIL TECH Ot C79.89 SECONDARY MALIGNANT NEOPLASM OF OTHER SP 12/21/2015 ELY ALVAREZ NAIL TECH Ot 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, 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 12/21/2015 ELY ALVAREZ NAIL TECH Ot E11.9 TYPE 2 DIABETES MELLITUS WITHOUT COMPLIC 12/21/2015 ELY ALVAREZ NAIL TECH Ot J44.9 CHRONIC OBSTRUCTIVE PULMONARY DISEASE, U 12/21/2015 ELY ALVAREZ S NAIL TECH Ot M06.9 RHEUMATOID ARTHRITIS, UNSPECIFIED 12/21/2015 ELY ALVAREZ S NAIL TECH Ot Z79.899 OTHER VOCAL ARTIST (CURRENT) DRUG THERAPY 01/12/2016 LAURA SMITH N Ot C34.90 MALIGNANT NEOPLASM OF UN[place] PART OF UNSP 01/12/2016 LUISLAURA JESUS N Ot C79.89 SECONDARY MALIGNANT NEOPLASM OF OTHER SP 01/12/2016 LAURA SMITH N Ot 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, 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 01/12/2016 LAURA SMITH N Ot E11.9 TYPE 2 DIABETES MELLITUS WITHOUT COMPLIC 01/12/2016 LAURA SMITH N Ot J44.9 CHRONIC OBSTRUCTIVE PULMONARY DISEASE, U 01/12/2016 LAURA SMITH N Ot M06.9 RHEUMATOID ARTHRITIS, UNSPECIFIED 01/12/2016 LAURA SMITH N Ot Z79.899 OTHER PENITENTIARY (CURRENT) DRUG THERAPY 01/13/2016 ELY ALVAREZ S NAIL TECH Ot C34.90 MALIGNANT NEOPLASM OF UN[place] PART OF UNSP 01/13/2016 ELY ALVAREZ NAIL TECH Ot C79.89 SECONDARY MALIGNANT NEOPLASM OF OTHER SP 01/13/2016 ELY ALVAREZ NAIL TECH Ot 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, 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 01/13/2016 ELY ALVAREZ NAIL TECH Ot E11.9 TYPE 2 DIABETES MELLITUS WITHOUT COMPLIC 01/13/2016 ELY ALVAREZ NAIL TECH Ot J44.9 CHRONIC OBSTRUCTIVE PULMONARY DISEASE, U 01/13/2016 ELY ALVAREZ NAIL TECH Ot M06.9 RHEUMATOID ARTHRITIS, UNSPECIFIED 01/13/2016 ELY ALVAREZ S NAIL TECH Ot Z79.899 OTHER VOCAL ARTIST (CURRENT) DRUG THERAPY 01/16/2016 MUKESH MARTINEZ WOOD ROUTER Ot J44.9 CHRONIC OBSTRUCTIVE PULMONARY DISEASE , U 01/16/2016 MUKESH MARTINEZ WOOD ROUTER Ot J45.998 OTHER ASTHMA 01/16/2016 MUKESH MARTINEZ E WOOD ROUTER Ot R06.02 SHORTNESS OF BREATH 02/05/2016 LAURA SMITH N Ot C34.90 MALIGNANT NEOPLASM OF [place] PART OF UNSP 02/05/2016 LAURA SMITH N Ot C79.89 SECONDARY MALIGNANT NEOPLASM OF OTHER SP 02/05/2016 LAURA SMITH N Ot 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, 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 02/05/2016 LAURA SMITH N Ot E11.9 TYPE 2 DIABETES MELLITUS WITHOUT COMPLIC 02/05/2016 LAURA SMITH N Ot J44.9 CHRONIC OBSTRUCTIVE PULMONARY DISEASE, U 02/05/2016 LAURA SMITH Liyah Ot M06.9 RHEUMATOID ARTHRITIS, UNSPECIFIED 02/05/2016 LAURA SMITH Liyah Ot Z79.899 OTHER PENITENTIARY (CURRENT) DRUG THERAPY 02/10/2016 ELY ALVAREZ S NAIL TECH Ot C34.90 MALIGNANT NEOPLASM OF UN[place] PART OF UNSP 02/10/2016 ELY ALVAREZ S NAIL TECH Ot C79.89 SECONDARY MALIGNANT NEOPLASM OF OTHER SP 02/10/2016 ELY ALVAREZ S NAIL TECH Ot 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, 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 02/10/2016 GREGORY ALVAREZMARIUSZ S NAIL TECH Ot E11.9 TYPE 2 DIABETES MELLITUS WITHOUT COMPLIC 02/10/2016 ELY ALVAREZ S NAIL TECH Ot J44.9 CHRONIC OBSTRUCTIVE PULMONARY DISEASE, U 02/10/2016 ELY ALVAREZ S NAIL TECH Ot M06.9 RHEUMATOID ARTHRITIS, UNSPECIFIED 02/10/2016 ELY ALVAREZ S NAIL TECH Ot Z79.899 OTHER PENITENTIARY (CURRENT) DRUG THERAPY 02/12/2016 ELY ALVAREZ S NAIL TECH Ot C34.90 MALIGNANT NEOPLASM OF UNSP PART OF UNSP 02/12/2016 GREGORY ALVAREZMARIUSZ S NAIL TECH Ot C79.89 SECONDARY MALIGNANT NEOPLASM OF OTHER SP 02/12/2016 ELY ALVAREZ S NAIL TECH Ot 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, 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 02/12/2016 ELY ALVAREZ S NAIL TECH Ot E11.9 TYPE 2 DIABETES MELLITUS WITHOUT COMPLIC 02/12/2016 ELY ALVAREZ S NAIL TECH Ot J44.9 CHRONIC OBSTRUCTIVE PULMONARY DISEASE, U 02/12/2016 ELY ALVAREZ S NAIL TECH Ot M06.9 RHEUMATOID ARTHRITIS, UNSPECIFIED 02/12/2016 KIM ELY S NAIL TECH Ot Z79.899 OTHER VOCAL ARTIST (CURRENT) DRUG THERAPY 02/13/2016 MUKESH MARTINEZ APRN Ot J44.9 CHRONIC OBSTRUCTIVE PULMONARY DISEASE , U 02/13/2016 MUKESH MARTINEZ WOOD ROUTER Ot J45.998 OTHER ASTHMA 02/13/2016 MUKESH MARTINEZ WOOD ROUTER Ot R06.02 SHORTNESS OF BREATH 02/24/2016 LAURA SMITH N Ot C34.90 MALIGNANT NEOPLASM OF UNSP PART OF UNSP 02/24/2016 LAURA SMITH Ot C79.89 SECONDARY MALIGNANT NEOPLASM OF OTHER SP 02/24/2016 LAURA SMITH Ot 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, 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 02/24/2016 LAURA SMITH Ot E11.9 TYPE 2 DIABETES MELLITUS WITHOUT COMPLIC 02/24/2016 LAURA SMITH Ot J44.9 CHRONIC OBSTRUCTIVE PULMONARY DISEASE, U 02/24/2016 LAURA SMITH Liyah Ot M06.9 RHEUMATOID ARTHRITIS, UNSPECIFIED 02/24/2016 LAURA SMITH Ot Z51.11 ENCOUNTER FOR ANTINEOPLASTIC CHEMOTHERAP 02/24/2016 LAURA SMITH Ot Z79.899 OTHER PENITENTIARY (CURRENT) DRUG THERAPY 02/25/2016 MARJORIE KENDALL DO Ot G47.10 HYPERSOMNIA, UNSPECIFIED 02/25/2016 MARJORIE KENDALL DO Ot I10 ESSENTIAL (PRIMARY) HYPERTENSION 02/25/2016 MARJORIE KENDALL DO, Ot G47.10 HYPERSOMNIA, UNSPECIFIED 02/25/2016 MARJORIE KENDALL DO Ot I10 ESSENTIAL (PRIMARY) HYPERTENSION 02/28/2016 ALLEN ROUSSEAU MD Ot 719.45 JOINT PAIN-PELVIS 02/28/2016 ALLEN ROUSSEAU MD Ot V15.88 HISTORY OF FALL 02/28/2016 ALLEN ROUSSEAU MD Ot 719.45 JOINT PAIN-PELVIS 02/28/2016 ALLEN ROUSSEAU MD Ot 721.3 LUMBOSACRAL SPONDYLOSIS 02/28/2016 ARAVIND HOOKER MD Ot 722.10 LUMBAR DISC DISPLACEMENT 02/28/2016 ARAVIND HOOKER MD Ot V72.83 EXAM PRE-OPERATIVE NEC 02/28/2016 ARAVIND HOOKER MD Ot V74.8 SCREEN-BACTERIAL DIS NEC 02/28/2016 ALLEN ROUSSEAU MD Ot 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 02/28/2016 ALLEN ROUSSEAU MD Ot 397.0 TRICUSPID VALVE DISEASE 02/28/2016 ALLEN ROUSSEAU MD Ot 785.2 CARDIAC MURMURS NEC 02/28/2016 BRAXTON LAUREN MD Ot 428.0 CONGESTIVE HEART FAILURE NOS 02/28/2016 BRAXTON LAUREN MD Ot 786.09 RESPIRATORY ABNORM NEC 02/28/2016 ELMER MAYORGA, RYAN Younger Ot V72.84 EXAM PRE-OPERATIVE NOS 02/28/2016 STEPH HOOKER DO Ot 789.09 ABDOMINAL PAIN, OTHER SPECIFIED SITE 02/28/2016 STEPH HOOKER DO Ot 998.12 HEMATOMA COMPLIC A PROC 02/28/2016 MARJORIE KENDALL DO Ot 162.9 MAL BREANN BRONCH/LUNG NOS 02/28/2016 MARJORIE KENDALL DO Ot 414.00 CORON ATHEROSCLER NOS TYPE VESSEL, NATIV 02/28/2016 MARJORIE KENDALL DO Ot 428.0 CONGESTIVE HEART FAILURE NOS 02/28/2016 MARJORIE KENDALL DO Ot 496 CHR AIRWAY OBSTRUCT NEC 02/28/2016 MARJORIE KENDALL DO Ot 786.05 SHORTNESS OF BREATH 02/28/2016 ONELIA MAYORGA, ALLEN Gomez Ot V76.12 OTH SCREEN MAMMO-MALIGN NEOPLASM OF [place] 02/28/2016 MARJORIE KENDALL DO Ot 162.9 MAL BREANN BRONCH/LUNG NOS 02/28/2016 MARJORIE KENDALL DO Ot 428.0 CONGESTIVE HEART FAILURE NOS 02/28/2016 MARJORIE KENDALL DO Ot 496 CHR AIRWAY OBSTRUCT NEC 02/28/2016 MARJORIE KENDALL DO Ot 793.11 SOLITARY PULMONARY NODULE 02/28/2016 OLE CARRIZALES Ot 162.9 MAL BREANN BRONCH/LUNG NOS 02/28/2016 OEL CARRIZALES Ot 272.4 HYPERLIPIDEMIA NEC/NOS 02/28/2016 OLE CARRIZALES Ot 428.0 CONGESTIVE HEART FAILURE NOS 02/28/2016 OLE CARRIZALES Ot 496 CHR AIRWAY OBSTRUCT NEC 02/28/2016 ALLEN ROUSSEAU MD Ot 285.9 ANEMIA NOS 02/28/2016 JOSHUA MAYORGA, [facility] Ot 202.70 PERIPHERAL T CELL LYMPHOMA, [facility], X 02/28/2016 MARJORIE KENDALL DO Ot 162.9 MAL BREANN BRONCH/LUNG NOS 02/28/2016 MARJORIE KENDALL DO Ot 428.0 CONGESTIVE HEART FAILURE NOS 02/28/2016 MARJORIE KENDALL DO Ot 496 CHR AIRWAY OBSTRUCT NEC 02/28/2016 MARJORIE KENDALL DO Ot 793.11 SOLITARY PULMONARY NODULE 02/28/2016 MORRO MAYORGA, ARAVIND Younger Ot 721.1 CERV SPONDYL W MYELOPATH 02/28/2016 ARAVIND HOOKER MD Ot 722.4 CERVICAL DISC DEGEN 02/28/2016 ALLEN ROUSSEAU MD Ot 733.90 BONE CARTILAGE DIS NOS 02/28/2016 ALLEN ROUSSEAU MD Ot V49.81 ASYMPT POSTMENOPAUSAL STATUS (AGE- RELATE 02/28/2016 ALLEN ROUSSEAU MD Ot 250.00 DIAB PARVEZ WO COMPL, TYPE II OR UNSPEC TY 02/28/2016 ALLEN ROUSSEAU MD Ot 719.41 JOINT PAIN-SHLDER 02/28/2016 ALLEN ROUSSEAU MD Ot 719.45 JOINT PAIN-PELVIS 02/28/2016 ALLEN ROUSSEAU MD Ot 722.52 LUMB/LUMBOSAC DISC DEGEN 02/28/2016 ALLEN ROUSSEAU MD Ot 737.30 IDIOPATHIC SCOLIOSIS 02/28/2016 ALLEN ROUSSEAU MD Ot V15.88 HISTORY OF FALL 02/28/2016 Ot 162.9 MAL BREANN BRONCH/LUNG NOS 02/28/2016 Ot 414.00 CORON ATHEROSCLER NOS TYPE VESSEL, NATIV 02/28/2016 Ot 428.0 CONGESTIVE HEART FAILURE NOS 02/28/2016 Ot 496 CHR AIRWAY OBSTRUCT NEC 02/28/2016 Ot 786.05 SHORTNESS OF BREATH 02/28/2016 SHANNAN CISNEROS DO Ot 715.31 LOC OSTEOARTH NOS-SHLDER 02/28/2016 SHANNAN CISNEROS DO Ot 840.9 SPRAIN SHOULDER/ARM NOS 02/28/2016 SHANNAN CISNEROS DO Ot E888.9 FALL NOS 02/28/2016 ALLEN ROUSSEAU MD Ot 338.29 OTHER CHRONIC PAIN 02/28/2016 ALLEN ROUSSEAU MD Ot 447.70 AORTIC ECTASIA, UNSPECIFIED SITE 02/28/2016 ALLEN ROUSSEAU MD Ot 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 02/28/2016 ALLEN ROUSSEAU MD Ot 574.20 CHOLELITHIASIS NOS 02/28/2016 ALLEN ROUSSEAU MD Ot 721.3 LUMBOSACRAL SPONDYLOSIS 02/28/2016 ALLEN ROUSSEAU MD Ot 724.00 SPINAL STENOSIS NOS 02/28/2016 ALLEN ROUSSEAU MD Ot 786.50 CHEST PAIN NOS 02/28/2016 ALLEN ROUSSEAU MD Ot 793.19 OTHER NONSPECIFIC ABNORMAL FINDING OF OMAR 02/28/2016 ALLEN ROUSSEAU MD Ot V15.88 HISTORY OF FALL 02/28/2016 MARJORIE KENDALL DO Ot 496 CHR AIRWAY OBSTRUCT NEC 02/28/2016 MARJORIE KENDALL DO Ot 786.05 SHORTNESS OF BREATH 02/28/2016 MARJORIE KENDALL DO Ot 793.11 SOLITARY PULMONARY NODULE 02/28/2016 BLAYNE RIOS SHANNAN [place] Ot 715.91 OSTEOARTHROS NOS-SHLDER 02/28/2016 BLAYNE RIOS SHANNAN [place] Ot 718.91 JT DERANGMENT NOS-SHLDER 02/28/2016 SHANNAN CISNEROS DO Ot 726.10 BURSAE TENDONS DIS SHLDER NOS 02/28/2016 LEONIDAS MAYORGA, BRAXTON [place] Ot 250.00 DIAB PARVEZ WO COMPL, TYPE II OR UNSPEC TY 02/28/2016 LEONIDAS MAYORGA, BRAXTON J Ot 272.4 HYPERLIPIDEMIA NEC/NOS 02/28/2016 LEONIDAS MAYORGA, BRAXTON J Ot 414.00 CORON ATHEROSCLER NOS TYPE VESSEL, NATIV 02/28/2016 LEONIDAS MAYORGA, BRAXTON J Ot 428.0 CONGESTIVE HEART FAILURE NOS 02/28/2016 SHANNAN CISNEROS DO Ot 162.9 MAL BREANN BRONCH/LUNG NOS 02/28/2016 BLAYNE RIOS SHANNAN F Ot 250.00 DIAB PARVEZ WO COMPL, TYPE II OR UNSPEC TY 02/28/2016 SHANNAN CISNEROS DO Ot 496 CHR AIRWAY OBSTRUCT NEC 02/28/2016 SHANNAN CISNEROS DO Ot 715.31 LOC OSTEOARTH NOS-SHLDER 02/28/2016 SHANNAN CISNEROS DO Ot 791.9 ABN URINE FINDINGS NEC 02/28/2016 SHANNAN CISNEROS DO Ot V72.63 PRE-PROCEDURAL LABORATORY EXAMINATION 02/28/2016 SHANNAN CISNEROS DO Ot V74.8 SCREEN-BACTERIAL DIS NEC 02/28/2016 MARJORIE KENDALL DO Ot 162.9 MAL BREANN BRONCH/LUNG NOS 02/28/2016 MARJORIE KENDALL DO Ot 496 CHR AIRWAY OBSTRUCT NEC 02/28/2016 MARJORIE KENDALL DO Ot 786.05 SHORTNESS OF BREATH 02/28/2016 ELMER MAYORGA, RYAN Younger Ot V72.84 EXAM PRE-OPERATIVE NOS 02/28/2016 ELY ALVAREZ NAIL TECH Ot 162.9 MAL BREANN BRONCH/LUNG NOS 02/28/2016 ELY ALVAREZ NAIL TECH Ot 198.89 SECONDARY MALIG BREANN NEC 02/28/2016 ELY ALVAREZ NAIL TECH Ot 202.70 PERIPHERAL T CELL LYMPHOMA, UNSP SITE, X 02/28/2016 ELY ALVAREZ NAIL TECH Ot 250.00 DIAB PARVEZ WO COMPL, TYPE II OR UNSPEC TY 02/28/2016 ELY ALVAREZ NAIL TECH Ot 496 CHR AIRWAY OBSTRUCT NEC 02/28/2016 ELY ALVAREZ NAIL TECH Ot 729.1 MYALGIA AND MYOSITIS NOS 02/28/2016 ELY ALVAREZ NAIL TECH Ot V58.69 OT MED,LT,CURRENT USE 02/28/2016 SHANNAN CISNEROS DO Ot 715.31 LOC OSTEOARTH NOS-SHLDER 02/28/2016 SHANNAN CISNEROS DO Ot 791.9 ABN URINE FINDINGS NEC 02/28/2016 SHANNAN CISNEROS DO Ot V72.63 PRE-PROCEDURAL LABORATORY EXAMINATION 02/28/2016 SHANNAN CISNEROS DO Ot V74.8 SCREEN-BACTERIAL DIS NEC 02/28/2016 ELMER MAYORGA, RYAN Younger Ot V72.84 EXAM PRE-OPERATIVE NOS 02/28/2016 MARJORIE KENDALL DO Ot 414.00 CORON ATHEROSCLER NOS TYPE VESSEL, NATIV 02/28/2016 MARJORIE KENDALL DO Ot 428.0 CONGESTIVE HEART FAILURE NOS 02/28/2016 MARJORIE KENDALL DO Ot 496 CHR AIRWAY OBSTRUCT NEC 02/28/2016 MARJORIE KENDALL DO Ot 785.0 TACHYCARDIA NOS 02/28/2016 NOHEMY CHANEL MD Ot 723.0 CERVICAL SPINAL STENOSIS 02/28/2016 NOHEMY CHANEL MD Ot 724.02 SPINAL STENOSIS, LUMBAR REG, W/OUT NEURO 02/28/2016 JHONY BAUMANN Ot 715.36 LOC OSTEOARTH NOS-L/LEG 02/28/2016 JHONY BAUMANN Ot 719.06 JOINT EFFUSION-L/LEG 02/28/2016 JHONY BAUMANN Ot 729.81 SWELLING OF LIMB 02/28/2016 NOHEMY CHANEL MD J Ot 724.00 SPINAL STENOSIS NOS 02/28/2016 NOHEMY CHANEL MD Ot V72.84 EXAM PRE-OPERATIVE NOS 02/28/2016 NOHEMY CHANEL MD Ot V74.8 SCREEN-BACTERIAL DIS NEC 02/28/2016 ELY ALVAREZ NAIL TECH Ot C34.90 MALIGNANT NEOPLASM OF UN[place] PART OF UNSP 02/28/2016 ELY ALVAREZ NAIL TECH Ot C79.89 SECONDARY MALIGNANT NEOPLASM OF OTHER SP 02/28/2016 ELY ALVAREZ NAIL TECH Ot 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, 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 02/28/2016 ELY ALVAREZ NAIL TECH Ot E11.9 TYPE 2 DIABETES MELLITUS WITHOUT COMPLIC 02/28/2016 ELY ALVAREZ NAIL TECH Ot J44.9 CHRONIC OBSTRUCTIVE PULMONARY DISEASE, U 02/28/2016 ELY ALVAREZ NAIL TECH Ot Z79.899 OTHER VOCAL ARTIST (CURRENT) DRUG THERAPY 02/28/2016 LAURA SMITH N Ot C34.90 MALIGNANT NEOPLASM OF [place] PART OF [place] 02/28/2016 LAURA SMITH N Ot C79.89 SECONDARY MALIGNANT NEOPLASM OF OTHER SP 02/28/2016 LAURA SMITH N Ot 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, 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 02/28/2016 LAURA SMITH Ot E11.9 TYPE 2 DIABETES MELLITUS WITHOUT COMPLIC 02/28/2016 LAURA SMITH N Ot J44.9 CHRONIC OBSTRUCTIVE PULMONARY DISEASE, U 02/28/2016 LAURA SMITH Ot M06.9 RHEUMATOID ARTHRITIS, UNSPECIFIED 02/28/2016 LAURA SMITH N Ot Z79.899 OTHER VOCAL ARTIST (CURRENT) DRUG THERAPY 02/28/2016 ELY ALVAREZ NAIL TECH Ot C34.90 MALIGNANT NEOPLASM OF [place] PART OF [place] 02/28/2016 ELY ALVAREZ NAIL TECH Ot C79.89 SECONDARY MALIGNANT NEOPLASM OF OTHER SP 02/28/2016 ELY ALVAREZ NAIL TECH Ot 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, 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 02/28/2016 ELY ALVAREZ NAIL TECH Ot E11.9 TYPE 2 DIABETES MELLITUS WITHOUT COMPLIC 02/28/2016 ELY ALVAREZ NAIL TECH Ot J44.9 CHRONIC OBSTRUCTIVE PULMONARY DISEASE, U 02/28/2016 GREGORY ALVAREZMARIUSZ Fallon NAIL TECH Ot M06.9 RHEUMATOID ARTHRITIS, UNSPECIFIED 02/28/2016 KIM ELY Fallon NAIL TECH Ot Z79.899 OTHER VOCAL ARTIST (CURRENT) DRUG THERAPY 02/28/2016 MUKESH MARTINEZ WOOD ROUTER Ot J44.9 CHRONIC OBSTRUCTIVE PULMONARY DISEASE , U 02/28/2016 MUKESH MARTINEZ WOOD ROUTER Ot J45.998 OTHER ASTHMA 02/28/2016 JUANMUKESH DOWNING WOOD ROUTER Ot R06.02 SHORTNESS OF BREATH 02/28/2016 ELY ALVAREZ NAIL TECH Ot C34.90 MALIGNANT NEOPLASM OF [place] PART OF [place] 02/28/2016 ELY ALVAREZ NAIL TECH Ot C79.89 SECONDARY MALIGNANT NEOPLASM OF OTHER SP 02/28/2016 ELY ALVAREZ NAIL TECH Ot 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, 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 02/28/2016 ELY ALVAREZ NAIL TECH Ot E11.9 TYPE 2 DIABETES MELLITUS WITHOUT COMPLIC 02/28/2016 ELY ALVAREZ NAIL TECH Ot J44.9 CHRONIC OBSTRUCTIVE PULMONARY DISEASE, U 02/28/2016 LEY ALVAREZ NAIL TECH Ot M06.9 RHEUMATOID ARTHRITIS, UNSPECIFIED 02/28/2016 ELY ALVAREZ NAIL TECH Ot Z79.899 OTHER PENITENTIARY (CURRENT) DRUG THERAPY 02/28/2016 COURTNEY DOBSON MD Ot 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 02/28/2016 COURTNEY DOBSON MD Ot R79.9 ABNORMAL FINDING OF BLOOD CHEMISTRY, [facility] 02/28/2016 COURTNEY DOBSON MD, Ot Z79.899 OTHER VOCAL ARTIST (CURRENT) DRUG THERAPY 02/28/2016 COURTENY DOBSON MD Ot Z87.440 PERSONAL HISTORY OF URINARY (TRACT) INFE 02/28/2016 LAURA SMITH Ot C34.90 MALIGNANT NEOPLASM OF [place] PART OF [place] 02/28/2016 LAURA SMITH Ot C79.89 SECONDARY MALIGNANT NEOPLASM OF OTHER SP 02/28/2016 LAURA SMITH Ot 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, 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 02/28/2016 LAURA SMITH Ot E11.9 TYPE 2 DIABETES MELLITUS WITHOUT COMPLIC 02/28/2016 LAURA SMITH Ot J44.9 CHRONIC OBSTRUCTIVE PULMONARY DISEASE, U 02/28/2016 LAURA SMITH Ot M06.9 RHEUMATOID ARTHRITIS, UNSPECIFIED 02/28/2016 LAURA SMITH Ot Z79.899 OTHER VOCAL ARTIST (CURRENT) DRUG THERAPY 02/28/2016 MARJORIE KENDALL DO, Ot 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, 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 02/28/2016 MARJORIE KENDALL DO, Ot E11.9 TYPE 2 DIABETES MELLITUS WITHOUT COMPLIC 02/28/2016 MARJORIE KENDALL DO, Ot J44.9 CHRONIC OBSTRUCTIVE PULMONARY DISEASE, U 02/28/2016 MARJORIE KENDALL DO, Ot 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.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 02/28/2016 MARJORIE KENDALL DO, Ot Z79.899 OTHER VOCAL ARTIST (CURRENT) DRUG THERAPY 02/28/2016 MARJORIE KENDALL DO, Ot Z85.118 PERSONAL HISTORY OF MALIGNANT NEOPLASM O 02/28/2016 MARJORIE KENDALL DO, Ot Z87.891 PERSONAL HISTORY OF NICOTINE DEPENDENCE 03/01/2016 MARJORIE KENDALL DO, Ot G47.10 HYPERSOMNIA, UNSPECIFIED 03/01/2016 MARJORIE KENDALL DO, Ot I10 ESSENTIAL (PRIMARY) HYPERTENSION 03/02/2016 LAURA SMITH Ot C34.90 MALIGNANT NEOPLASM OF [place] PART OF UNSP 03/02/2016 LAURA SMITH Ot C79.89 SECONDARY MALIGNANT NEOPLASM OF OTHER SP 03/02/2016 LAURA SMITH Ot 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, 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 03/02/2016 LAURA SMITH Ot E11.9 TYPE 2 DIABETES MELLITUS WITHOUT COMPLIC 03/02/2016 LAURA SMITH Ot J44.9 CHRONIC OBSTRUCTIVE PULMONARY DISEASE, U 03/02/2016 LAURA SMITH Ot M06.9 RHEUMATOID ARTHRITIS, UNSPECIFIED 03/02/2016 LAURA SMITH Ot Z79.899 OTHER VOCAL ARTIST (CURRENT) DRUG THERAPY 03/04/2016 MARJORIE KENDALL DO, Ot 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, 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 03/04/2016 MARJORIE KENDALL DO, Ot E11.9 TYPE 2 DIABETES MELLITUS WITHOUT COMPLIC 03/04/2016 MARJORIE KENDALL DO, Ot J44.9 CHRONIC OBSTRUCTIVE PULMONARY DISEASE, U 03/04/2016 FAIZA RIOSMARJORIE Ot T17.898A OT FORN OBJECT IN OT PRT RESP TRACT CA 03/04/2016 FAIZA RIOSSKYLARMARJORIE M Ot Z79.899 OTHER PENITENTIARY (CURRENT) DRUG THERAPY 03/04/2016 FAIZA RIOSSKYLARMARJORIE M Ot Z85.118 PERSONAL HISTORY OF MALIGNANT NEOPLASM O 03/04/2016 FAIZA RIOSSKYLARMARJORIE M Ot Z87.891 PERSONAL HISTORY OF NICOTINE DEPENDENCE 03/04/2016 ELY ALVAREZ NAIL TECH Ot R06.02 SHORTNESS OF BREATH 03/04/2016 ELY ALVAREZ NAIL TECH Ot R07.9 CHEST PAIN, UNSPECIFIED 03/04/2016 ELY ALVAREZ NAIL TECH Ot R91.1 SOLITARY PULMONARY NODULE 03/05/2016 ELY ALVAREZ NAIL TECH Ot C34.90 MALIGNANT NEOPLASM OF UNSP PART OF 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 03/05/2016 EYL ALVAREZ NAIL TECH Ot E11.9 TYPE 2 DIABETES MELLITUS WITHOUT COMPLIC 03/05/2016 ELY ALVAREZ NAIL TECH Ot J44.9 CHRONIC OBSTRUCTIVE PULMONARY DISEASE, U 03/05/2016 ELY ALVAREZ NAIL TECH Ot M06.9 RHEUMATOID ARTHRITIS, UNSPECIFIED 03/05/2016 ELY ALVAREZ NAIL TECH Ot Z79.899 OTHER PENITENTIARY (CURRENT) DRUG THERAPY 03/08/2016 LAURA SMITH Ot C34.90 MALIGNANT NEOPLASM OF UNSP PART OF [facility] 03/08/2016 LAURA SMITH Ot C79.89 SECONDARY MALIGNANT NEOPLASM OF OTHER SP 03/08/2016 LAURA SMITH Ot 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, 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 03/08/2016 LAURA SMITH Ot E11.9 TYPE 2 DIABETES MELLITUS WITHOUT COMPLIC 03/08/2016 LAURA SMITH Ot J44.9 CHRONIC OBSTRUCTIVE PULMONARY DISEASE, U 03/08/2016 LAURA SMITH Ot M06.9 RHEUMATOID ARTHRITIS, UNSPECIFIED 03/08/2016 LAURA SMITH Ot Z79.899 OTHER PENITENTIARY (CURRENT) DRUG THERAPY 03/09/2016 COURTNEY DOBSON MD Ot N39.0 URINARY TRACT INFECTION, SITE NOT SPECIF 03/15/2016 MUKESH MARTINEZ APRN Ot J44.9 CHRONIC OBSTRUCTIVE PULMONARY DISEASE , U 03/15/2016 MUKESH MARTINEZ APRN Ot J45.998 OTHER ASTHMA 03/15/2016 MUKESH MARTINEZ APRN Ot R06.02 SHORTNESS OF BREATH 03/18/2016 COURTNEY DOBSON MD, Ot 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 03/18/2016 COURTNEY DOBSON MD, Ot R79.9 ABNORMAL FINDING OF BLOOD CHEMISTRY, [facility] 03/18/2016 COURTNEY DOBSON MD, Ot Z79.899 OTHER VOCAL ARTIST (CURRENT) DRUG THERAPY 03/18/2016 COURTNEY DOBSON MD Ot Z87.440 PERSONAL HISTORY OF URINARY (TRACT) INFE 03/24/2016 ELY ALVAREZ NAIL TECH Ot R06.02 SHORTNESS OF BREATH 03/24/2016 ELY ALVAREZ NAIL TECH Ot R07.9 CHEST PAIN, UNSPECIFIED 03/24/2016 ELY ALVAREZ NAIL TECH Ot R91.1 SOLITARY PULMONARY NODULE 03/29/2016 LAURA SMITH Ot C34.90 MALIGNANT NEOPLASM OF UNSP PART OF UNSP 03/29/2016 LAURA SMITH Ot C79.89 SECONDARY MALIGNANT NEOPLASM OF OTHER SP 03/29/2016 LAURA SMITH Ot 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, 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 03/29/2016 LAURA SMITH Ot D50.9 IRON DEFICIENCY ANEMIA, UNSPECIFIED 03/29/2016 LAURA SMITH Ot E03.9 HYPOTHYROIDISM, UNSPECIFIED 03/29/2016 LAURA SMITH Ot E11.9 TYPE 2 DIABETES MELLITUS WITHOUT COMPLIC 03/29/2016 LAURA SMITH Ot I10 ESSENTIAL (PRIMARY) HYPERTENSION 03/29/2016 LAURA SMITH Ot I25.10 ATHSCL HEART DISEASE OF [place] CORONARY 03/29/2016 LAURA SMITH Ot I50.9 HEART FAILURE, UNSPECIFIED 03/29/2016 LAURA SMITH Ot J44.9 CHRONIC OBSTRUCTIVE PULMONARY DISEASE, U 03/29/2016 LAURA SMITH Ot M06.9 RHEUMATOID ARTHRITIS, UNSPECIFIED 03/29/2016 LUISLAURA JESUS N Ot Z79.899 OTHER VOCAL ARTIST (CURRENT) DRUG THERAPY 03/29/2016 LUISLAURA JESUS N Ot C34.90 MALIGNANT NEOPLASM OF UNSP PART OF UNSP 03/29/2016 LUISLAURA JESUS N Ot C79.89 SECONDARY MALIGNANT NEOPLASM OF OTHER SP 03/29/2016 LAURA SMITH N Ot 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, 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 03/29/2016 LAURA SMITH N Ot E11.9 TYPE 2 DIABETES MELLITUS WITHOUT COMPLIC 03/29/2016 LUISLAURA JESUS N Ot J44.9 CHRONIC OBSTRUCTIVE PULMONARY DISEASE, U 03/29/2016 LAURA SMITH N Ot M06.9 RHEUMATOID ARTHRITIS, UNSPECIFIED 03/29/2016 LAURA SMITH N Ot Z79.899 OTHER PENITENTIARY (CURRENT) DRUG THERAPY 03/31/2016 OLYA MAYORGA, COURTNEY Webber Ot N39.0 URINARY TRACT INFECTION, SITE NOT SPECIF 04/06/2016 LAURA SMITH N Ot C34.90 MALIGNANT NEOPLASM OF UNSP PART OF UNSP 04/06/2016 LAURA SMITH N Ot C79.89 SECONDARY MALIGNANT NEOPLASM OF OTHER SP 04/06/2016 LAURA SMITH N Ot 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9 TYPE 2 DIABETES MELLITUS WITHOUT COMPLIC 04/06/2016 ELY ALVAREZ NAIL TECH Ot J44.9 CHRONIC OBSTRUCTIVE PULMONARY DISEASE, U 04/06/2016 ELY ALVAREZ NAIL TECH Ot M06.9 RHEUMATOID ARTHRITIS, UNSPECIFIED 04/06/2016 ELY ALVAREZ NAIL TECH Ot Z79.899 OTHER VOCAL ARTIST (CURRENT) DRUG THERAPY 04/12/2016 ELY ALVAREZ NAIL TECH Ot R06.02 SHORTNESS OF BREATH 04/12/2016 ELY ALVAREZ NAIL TECH Ot R07.9 CHEST PAIN, UNSPECIFIED 04/12/2016 ELY ALVAREZ NAIL TECH Ot R91.1 SOLITARY PULMONARY NODULE 05/18/2016 LUIS BOBAN N Ot 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, 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 05/18/2016 LUIS BOBAN N Ot D50.9 IRON DEFICIENCY ANEMIA, UNSPECIFIED 05/18/2016 LUIS BOBAN N Ot E03.9 HYPOTHYROIDISM, UNSPECIFIED 05/18/2016 LUIS, BOBAN N Ot E11.9 TYPE 2 DIABETES MELLITUS WITHOUT COMPLIC 05/18/2016 LUIS BOBAN N Ot I11.0 HYPERTENSIVE HEART DISEASE WITH HEART FA 05/18/2016 LUIS BOBAN N Ot I25.10 ATHSCL HEART DISEASE OF [place] CORONARY 05/18/2016 LUIS, BOBAN N Ot I50.9 HEART FAILURE, UNSPECIFIED 05/18/2016 LUIS BOBAN N Ot J44.9 CHRONIC OBSTRUCTIVE PULMONARY DISEASE, U 05/18/2016 LUIS BOBAN N Ot M06.9 RHEUMATOID ARTHRITIS, UNSPECIFIED 05/18/2016 LUIS, BOBAN N Ot Z79.899 OTHER PENITENTIARY (CURRENT) DRUG THERAPY 07/04/2016 LUIS BOBAN N Ot 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, 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 07/04/2016 LUIS BOBAN N Ot D50.9 IRON DEFICIENCY ANEMIA, UNSPECIFIED 07/04/2016 LUIS, BOBAN N Ot E03.9 HYPOTHYROIDISM, UNSPECIFIED 07/04/2016 LUIS, BOBAN N Ot E11.9 TYPE 2 DIABETES MELLITUS WITHOUT COMPLIC 07/04/2016 LUIS, BOBAN N Ot I11.0 HYPERTENSIVE HEART DISEASE WITH HEART FA 07/04/2016 LUIS, BOBAN N Ot I25.10 ATHSCL HEART DISEASE OF [place] CORONARY 07/04/2016 LUIS BOBAN N Ot I50.9 HEART FAILURE, UNSPECIFIED 07/04/2016 LAURA SMITH Ot J44.9 CHRONIC OBSTRUCTIVE PULMONARY DISEASE, U 07/04/2016 LAURA SMITH Ot M06.9 RHEUMATOID ARTHRITIS, UNSPECIFIED 07/04/2016 LAURA SMITH Ot Z79.899 OTHER PENITENTIARY (CURRENT) DRUG THERAPY 10/11/2016 COURTNEY JORGE MD, Ot 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 10/11/2016 COURTNEY JORGE MD, Ot E11.622 TYPE 2 DIABETES MELLITUS WITH OTHER SKIN 10/11/2016 COURTNEY JORGE MD, Ot L95.8 OTHER VASCULITIS LIMITED TO THE SKIN 10/11/2016 COURTNEY JORGE MD, Ot L97.222 NON-PRESSURE CHRONIC ULCER OF LEFT CALF 10/11/2016 COURTNEY JORGE MD, Ot L97.312 NON-PRS CHRONIC ULCER OF RIGHT ANKLE W F 10/11/2016 COURTNEY JORGE MD, Ot L97.322 NON-PRESSURE CHRONIC ULCER OF LEFT ANKLE 10/15/2016 LAURA SMITH Ot 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, 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 10/15/2016 LAURA SMITH Ot D50.9 IRON DEFICIENCY ANEMIA, UNSPECIFIED 10/15/2016 LAURA SMITH Ot E03.9 HYPOTHYROIDISM, UNSPECIFIED 10/15/2016 LAURA SMITH Ot E11.9 TYPE 2 DIABETES MELLITUS WITHOUT COMPLIC 10/15/2016 LAURA SMITH Ot I11.0 HYPERTENSIVE HEART DISEASE WITH HEART FA 10/15/2016 LAURA SMITH Ot I25.10 ATHSCL HEART DISEASE OF [place] CORONARY 10/15/2016 LAURA SMITH Ot I50.9 HEART FAILURE, UNSPECIFIED 10/15/2016 LAURA SMITH Ot J44.9 CHRONIC OBSTRUCTIVE PULMONARY DISEASE, U 10/15/2016 LAURA SMITH Ot M06.9 RHEUMATOID ARTHRITIS, UNSPECIFIED 10/15/2016 LAURA SMITH Ot Z79.899 OTHER VOCAL ARTIST (CURRENT) DRUG THERAPY 11/09/2016 MARJORIE KENDALL DO, Ot J18.9 PNEUMONIA, UNSPECIFIED ORGANISM 11/09/2016 MARJORIE KENDALL DO, Ot M19.90 UNSPECIFIED OSTEOARTHRITIS, UNSPECIFIED 11/09/2016 MARJORIE KENDALL DO, Ot M79.7 FIBROMYALGIA 11/09/2016 MARJORIE KENDALL DO, Ot R09.02 HYPOXEMIA 11/10/2016 JHONY BAUMANN Ot J18.9 PNEUMONIA, UNSPECIFIED ORGANISM 11/19/2016 LUISLAURA Ot 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, 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 11/19/2016 LAURA SMITH Ot D50.9 IRON DEFICIENCY ANEMIA, UNSPECIFIED 11/19/2016 LAURA SMITH Ot E03.9 HYPOTHYROIDISM, UNSPECIFIED 11/19/2016 LUISLAURA Ot E11.9 TYPE 2 DIABETES MELLITUS WITHOUT COMPLIC 11/19/2016 LUISLAURA JESUS Ot I11.0 HYPERTENSIVE HEART DISEASE WITH HEART FA 11/19/2016 LAURA SMITH Ot I25.10 ATHSCL HEART DISEASE OF [place] CORONARY 11/19/2016 LAURA SMITH Ot I50.9 HEART FAILURE, UNSPECIFIED 11/19/2016 LAURA SMITH Ot J44.9 CHRONIC OBSTRUCTIVE PULMONARY DISEASE, U 11/19/2016 LAURA SMITH Ot M06.9 RHEUMATOID ARTHRITIS, UNSPECIFIED 11/19/2016 LUISLAURA Ot Z79.899 OTHER VOCAL ARTIST (CURRENT) DRUG THERAPY 11/23/2016 COURTNEY JORGE MD Ot 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 11/23/2016 COURTNEY JORGE MD Ot E11.622 TYPE 2 DIABETES MELLITUS WITH OTHER SKIN 11/23/2016 COURTNEY JORGE MD Ot L95.8 OTHER VASCULITIS LIMITED TO THE SKIN 11/23/2016 COURTNEY JORGE MD Ot L97.222 NON-PRESSURE CHRONIC ULCER OF LEFT CALF 11/23/2016 COURTNEY JORGE MD, Ot L97.312 NON-PRS CHRONIC ULCER OF RIGHT ANKLE W F 11/23/2016 COURTNEY JORGE MD, Ot L97.322 NON-PRESSURE CHRONIC ULCER OF LEFT ANKLE 12/12/2016 MARJORIE KENDALL DO, Ot J18.9 PNEUMONIA, UNSPECIFIED ORGANISM 12/12/2016 MARJORIE KENDALL DO, Ot M19.90 UNSPECIFIED OSTEOARTHRITIS, UNSPECIFIED 12/12/2016 MARJORIE KENDALL DO, Ot M79.7 FIBROMYALGIA 12/12/2016 MARJORIE KENDALL DO, Ot R09.02 HYPOXEMIA 12/16/2016 MARJORIE KENDALL DO Ot J18.9 PNEUMONIA, UNSPECIFIED ORGANISM 12/16/2016 MARJORIE KENDALL DO Ot M19.90 UNSPECIFIED OSTEOARTHRITIS, UNSPECIFIED 12/16/2016 MARJORIE KENDALL DO Ot M79.7 FIBROMYALGIA 12/16/2016 MARJORIE KENDALL DO Ot R09.02 HYPOXEMIA Procedures Code Description Performed By Performed On 81.88 05/14/2014 04.81 11/12/2014 81.88 11/12/2014 03.09 03/24/2015 Results Test Result Range Erythrocyte sedimentation rate by westergren method - 02/23/16 11:04 Erythrocyte sedimentation rate by westergren method 56 mm 0-30 Serum or plasma C reactive protein measurement (mass/volume) - 02/23/16 11:04 Serum or plasma C reactive protein measurement (mass/volume) 8.64 mg/dL 0.00-0.50 Complete urinalysis with reflex to culture - 02/23/16 12:38 Urine color determination YELLOW NRG Urine clarity determination CLEAR NRG Urine pH measurement by test strip 5 5- 9 Specific gravity of urine by test strip 1.020 1.016-1.022 Urine protein assay by test strip, semi-quantitative 1+ NEGATIVE Urine glucose detection by automated test strip NEGATIVE NEGATIVE Erythrocytes detection in urine sediment by light microscopy NEGATIVE NEGATIVE Urine ketones detection by automated test strip 1+ NEGATIVE Urine nitrite detection by test strip NEGATIVE NEGATIVE Urine total bilirubin detection by test strip NEGATIVE NEGATIVE Urine urobilinogen measurement by automated test strip (mass/volume) NORMAL NORMAL Urine leukocyte esterase detection by dipstick 1+ NEGATIVE Automated urine sediment erythrocyte count by microscopy (number/high power field) NONE NRG Automated urine sediment leukocyte count by microscopy (number/high power field ) [HPF] NRG Bacteria detection in urine sediment by light microscopy TRACE NRG Squamous epithelial cells detection in urine sediment by light microscopy 0-2 NRG Crystals detection in urine sediment by light microscopy NONE NRG Casts detection in urine sediment by light microscopy PRESENT NRG Mucus detection in urine sediment by light microscopy SMALL NRG Complete urinalysis with reflex to culture YES NRG Hyaline casts detection in urine sediment by light microscopy 2-5 NRG Bacterial urine culture - 02/23/16 12:38 Bacterial urine culture [id number] NRG COLONY COUNT <10,000 NRG FTX;REPORTABLE SENSITIVITY REPORTED AT 0727, 02-26-16 NRG Bacterial susceptibility panel - 02/23/16 12:38 Gentamicin susceptibility test by minimum inhibitory concentration <= NRG Tobramycin susceptibility test by minimum inhibitory concentration <= NRG Piperacillin/tazobactam susceptibility test by minimum inhibitory concentration <= NRG Ciprofloxacin susceptibility test by minimum inhibitory concentration 1 NRG Meropenem susceptibility test by minimum inhibitory concentration <= NRG Bacterial susceptibility panel - 02/23/16 12:38 Gentamicin susceptibility test by minimum inhibitory concentration <= NRG Trimethoprim/sulfamethoxazole susceptibility test by minimum inhibitoryconcentration <= NRG Tobramycin susceptibility test by minimum inhibitory concentration <= NRG Cefazolin susceptibility test by minimum inhibitory concentration >= NRG Piperacillin/tazobactam susceptibility test by minimum inhibitory concentration <= NRG Ciprofloxacin susceptibility test by minimum inhibitory concentration <= NRG Meropenem susceptibility test by minimum inhibitory concentration 1 NRG Nitrofurantoin susceptibility test by minimum inhibitory concentration 64 NRG Aztreonam susceptibility test by minimum inhibitory concentration <= NRG Cefepime susceptibility test by minimum inhibitory concentration <= NRG Capillary blood glucose measurement by glucometer (mass/volume) - 02/28/16 07: 15 Capillary blood glucose measurement by glucometer (mass/volume) 94 mg/dL 70-110 Serum or plasma C reactive protein measurement (mass/volume) - 03/08/16 13:14 Serum or plasma C reactive protein measurement (mass/volume) 1.25 mg/dL 0.00-0.50 Erythrocyte sedimentation rate by westergren method - 03/08/16 13:14 Erythrocyte sedimentation rate by westergren method 83 mm 0-30 Complete urinalysis with reflex to culture - 03/08/16 13:20 Urine color determination YELLOW NRG Urine clarity determination CLEAR NRG Urine pH measurement by test strip 8 5- 9 Specific gravity of urine by test strip 1.010 1.016-1.022 Urine protein assay by test strip, semi-quantitative NEGATIVE NEGATIVE Urine glucose detection by automated test strip NEGATIVE NEGATIVE Erythrocytes detection in urine sediment by light microscopy NEGATIVE NEGATIVE Urine ketones detection by automated test strip NEGATIVE NEGATIVE Urine nitrite detection by test strip NEGATIVE NEGATIVE Urine total bilirubin detection by test strip NEGATIVE NEGATIVE Urine urobilinogen measurement by automated test strip (mass/volume) NORMAL NORMAL Urine leukocyte esterase detection by dipstick NEGATIVE NEGATIVE Automated urine sediment erythrocyte count by microscopy (number/high power field) NONE NRG Automated urine sediment leukocyte count by microscopy (number/high power field ) NONE NRG Bacteria detection in urine sediment by light microscopy NEGATIVE NRG Squamous epithelial cells detection in urine sediment by light microscopy RARE NRG Crystals detection in urine sediment by light microscopy NONE NRG Casts detection in urine sediment by light microscopy NONE NRG Mucus detection in urine sediment by light microscopy NEGATIVE NRG Complete urinalysis with reflex to culture NO NRG Bacteria identification in isolate by anaerobe culture - 11/05/16 08:39 Bacteria identification in isolate by anaerobe culture NOANA NRG Gram stain microscopy - 11/05/16 08:39 GRAM STAIN RESULT NO WBC'S OR BACTERIA OBSERVED NRG Bacteria identification in wound by culture - 11/05/16 08:39 Bacteria identification in wound by culture [id number] NR FREE TEXT EXTERNAL SENSITIVITY REPORTED AT 1047, 5-17 NRG QUANTITY OF GROWTH Scant Growth NRG Bacterial susceptibility panel - 11/05/16 08:39 Gentamicin susceptibility test by minimum inhibitory concentration 4 NRG Tobramycin susceptibility test by minimum inhibitory concentration <= NRG Piperacillin/tazobactam susceptibility test by minimum inhibitory concentration 8 NRG Ciprofloxacin susceptibility test by minimum inhibitory concentration <= NRG Meropenem susceptibility test by minimum inhibitory concentration <= NRG Cefepime susceptibility test by minimum inhibitory concentration 2 NRG Complete blood count (CBC) with automated white blood cell (WBC) differential - 12/15/16 19:47 Blood leukocytes automated count (number/volume) 10.1 10*3/ uL 4.3-11.0 Blood erythrocytes automated count (number/volume) 3.08 10*6 /uL 4.35-5.85 Venous blood hemoglobin measurement (mass/volume) 9.6 g/dL 11.5-16.0 Blood hematocrit (volume fraction) 31 % 35-52 Automated erythrocyte mean corpuscular volume 100 [foz_us] 80-99 Automated erythrocyte mean corpuscular hemoglobin (mass per erythrocyte) 31 pg 25-34 Automated erythrocyte mean corpuscular hemoglobin concentration measurement ( mass/volume) 31 g/dL 32-36 Automated erythrocyte distribution width ratio 14.8 % 10.0-14.5 Automated blood platelet count (count/volume) 321 10*3/uL 130-400 Automated blood platelet mean volume measurement 8.4 [foz_us ] 7.4-10.4 Automated blood neutrophils/100 leukocytes 85 % 42-75 Automated blood lymphocytes/100 leukocytes 6 % 12-44 Blood monocytes/100 leukocytes 9 % 0-12 Automated blood eosinophils/100 leukocytes 0 % 0-10 Automated blood basophils/100 leukocytes 0 % 0-10 Blood neutrophils automated count (number/volume) 8.6 10*3 1.8-7.8 Blood lymphocytes automated count (number/volume) 0.6 10*3 1.0-4.0 Blood monocytes automated count (number/volume) 0.9 10*3 0.0-1.0 Automated eosinophil count 0.0 10*3/uL 0.0-0.3 Automated blood basophil count (count/volume) 0.0 10*3/uL 0.0-0.1 Comprehensive metabolic panel - 12/15/16 19:47 Serum or plasma sodium measurement (moles/volume) 134 mmol/ L 135-145 Serum or plasma potassium measurement (moles/volume) 5.3 mmol/L 3.6-5.0 Serum or plasma chloride measurement (moles/volume) 96 mmol/ L 98-107 Carbon dioxide 30 mmol/L 21-32 Serum or plasma anion gap determination (moles/volume) 8 mmol/L 5-14 Serum or plasma urea nitrogen measurement (mass/volume) 38 mg/dL 7-18 Serum or plasma creatinine measurement (mass/volume) 1.03 mg /dL 0.60-1.30 Serum or plasma urea nitrogen/creatinine mass ratio 37 0-20 Serum or plasma creatinine measurement with calculation of estimated glomerular filtration rate 53 NRG Serum or plasma glucose measurement (mass/volume) 116 mg/dL 70-105 Serum or plasma calcium measurement (mass/volume) 9.7 mg/dL 8.5-10.1 Serum or plasma total bilirubin measurement (mass/volume) 0.4 mg/dL 0.1-1.0 Serum or plasma alkaline phosphatase measurement (enzymatic activity/volume) 95 U/L 40-136 Serum or plasma aspartate aminotransferase measurement (enzymatic activity/ volume) 33 U/L 5-34 Serum or plasma alanine aminotransferase measurement (enzymatic activity/volume ) 37 U/L 0-55 Serum or plasma protein measurement (mass/volume) 7.4 g/dL 6.4-8.2 Serum or plasma albumin measurement (mass/volume) 4.0 g/dL 3.2-4.5 Blood manual differential performed detection - 12/15/16 19:47 Blood monocytes/100 leukocytes 5 % NRG Manual blood segmented neutrophils/100 leukocytes 88 % NRG Blood band neutrophils/100 leukocytes 0 % NRG Manual blood lymphocytes/100 leukocytes 7 % NRG Manual eosinophils/100 leukocytes in nose 0 % NRG Manual blood basophils/100 leukocytes 0 % NRG Blood anisocytosis detection by light microscopy SLIGHT NRG Blood macrocytes detection by light microscopy SLIGHT NRG Complete urinalysis with reflex to culture - 12/15/16 20:23 Urine color determination YELLOW NRG Urine clarity determination SLIGHTLY CLOUDY NRG Urine pH measurement by test strip 5 5- 9 Specific gravity of urine by test strip 1.010 1.016-1.022 Urine protein assay by test strip, semi-quantitative 1+ NEGATIVE Urine glucose detection by automated test strip NEGATIVE NEGATIVE Erythrocytes detection in urine sediment by light microscopy NEGATIVE NEGATIVE Urine ketones detection by automated test strip NEGATIVE NEGATIVE Urine nitrite detection by test strip NEGATIVE NEGATIVE Urine total bilirubin detection by test strip NEGATIVE NEGATIVE Urine urobilinogen measurement by automated test strip (mass/volume) NORMAL NORMAL Urine leukocyte esterase detection by dipstick NEGATIVE NEGATIVE Automated urine sediment erythrocyte count by microscopy (number/high power field) NONE NRG Automated urine sediment leukocyte count by microscopy (number/high power field ) NONE NRG Bacteria detection in urine sediment by light microscopy NEGATIVE NRG Squamous epithelial cells detection in urine sediment by light microscopy 0-2 NRG Crystals detection in urine sediment by light microscopy NONE NRG Casts detection in urine sediment by light microscopy PRESENT NRG Mucus detection in urine sediment by light microscopy NEGATIVE NRG Complete urinalysis with reflex to culture NO NRG Hyaline casts detection in urine sediment by light microscopy 2-5 NRG Whole blood basic metabolic panel - 12/16/16 06:16 Serum or plasma sodium measurement (moles/volume) 136 mmol/ L 135-145 Serum or plasma potassium measurement (moles/volume) 5.2 mmol/L 3.6-5.0 Serum or plasma chloride measurement (moles/volume) 99 mmol/ L 98-107 Carbon dioxide 28 mmol/L 21-32 Serum or plasma anion gap determination (moles/volume) 9 mmol/L 5-14 Serum or plasma urea nitrogen measurement (mass/volume) 31 mg/dL 7-18 Serum or plasma creatinine measurement (mass/volume) 0.83 mg /dL 0.60-1.30 Serum or plasma urea nitrogen/creatinine mass ratio 37 0-20 Serum or plasma creatinine measurement with calculation of estimated glomerular filtration rate > NRG Serum or plasma glucose measurement (mass/volume) 123 mg/dL 70-105 Serum or plasma calcium measurement (mass/volume) 9.8 mg/dL 8.5-10.1 Capillary blood glucose measurement by glucometer (mass/volume) - 12/16/16 18: 25 Capillary blood glucose measurement by glucometer (mass/volume) 162 mg/dL 70-110 Arterial blood gas measurement - 12/16/16 19:48 Blood pCO2 50 mm[Hg] 35-45 Blood pO2 186 mm[Hg] 79-93 Arterial blood bicarbonate measurement (moles/volume) 27 mmol/L 23-27 Arterial blood base excess by calculation 2.4 mmol/L -2.5-2.5 Arterial blood oxygen saturation measurement 100 % 94-100 * Inhaled oxygen flow rate 70% BIPAP NRG Arterial blood pH measurement with patient temperature correction 7.36 7.37-7.43 Arterial blood carbon dioxide, total measurement (moles/volume) 29.0 mmol/L 21.0-31.0 Body site LEFT RADIAL NRG Assessment of wrist artery patency prior to arterial puncture POSITIVE NRG Setting of ventilation mode NO NRG Measurement of body temperature 98.5 NRG Complete blood count (CBC) with automated white blood cell (WBC) differential - 12/17/16 03:57 Blood leukocytes automated count (number/volume) 9.1 10*3/ uL 4.3-11.0 Blood erythrocytes automated count (number/volume) 3.13 10*6 /uL 4.35-5.85 Venous blood hemoglobin measurement (mass/volume) 9.8 g/dL 11.5-16.0 Blood hematocrit (volume fraction) 31 % 35-52 Automated erythrocyte mean corpuscular volume 99 [foz_us] 80-99 Automated erythrocyte mean corpuscular hemoglobin (mass per erythrocyte) 31 pg 25-34 Automated erythrocyte mean corpuscular hemoglobin concentration measurement ( mass/volume) 32 g/dL 32-36 Automated erythrocyte distribution width ratio 14.6 % 10.0-14.5 Automated blood platelet count (count/volume) 383 10*3/uL 130-400 Automated blood platelet mean volume measurement 8.7 [foz_us ] 7.4-10.4 Automated blood neutrophils/100 leukocytes 91 % 42-75 Automated blood lymphocytes/100 leukocytes 4 % 12-44 Blood monocytes/100 leukocytes 5 % 0-12 Automated blood eosinophils/100 leukocytes 0 % 0-10 Automated blood basophils/100 leukocytes 0 % 0-10 Blood neutrophils automated count (number/volume) 8.3 10*3 1.8-7.8 Blood lymphocytes automated count (number/volume) 0.4 10*3 1.0-4.0 Blood monocytes automated count (number/volume) 0.5 10*3 0.0-1.0 Automated eosinophil count 0.0 10*3/uL 0.0-0.3 Automated blood basophil count (count/volume) 0.0 10*3/uL 0.0-0.1 Comprehensive metabolic panel - 12/17/16 03:57 Serum or plasma sodium measurement (moles/volume) 138 mmol/ L 135-145 Serum or plasma potassium measurement (moles/volume) 4.3 mmol/L 3.6-5.0 Serum or plasma chloride measurement (moles/volume) 98 mmol/ L 98-107 Carbon dioxide 26 mmol/L 21-32 Serum or plasma anion gap determination (moles/volume) 14 mmol/L 5-14 Serum or plasma urea nitrogen measurement (mass/volume) 29 mg/dL 7-18 Serum or plasma creatinine measurement (mass/volume) 0.83 mg /dL 0.60-1.30 Serum or plasma urea nitrogen/creatinine mass ratio 35 0-20 Serum or plasma creatinine measurement with calculation of estimated glomerular filtration rate > NRG Serum or plasma glucose measurement (mass/volume) 122 mg/dL 70-105 Serum or plasma calcium measurement (mass/volume) 8.8 mg/dL 8.5-10.1 Serum or plasma total bilirubin measurement (mass/volume) 0.3 mg/dL 0.1-1.0 Serum or plasma alkaline phosphatase measurement (enzymatic activity/volume) 93 U/L 40-136 Serum or plasma aspartate aminotransferase measurement (enzymatic activity/ volume) 51 U/L 5-34 Serum or plasma alanine aminotransferase measurement (enzymatic activity/volume ) 59 U/L 0-55 Serum or plasma protein measurement (mass/volume) 6.8 g/dL 6.4-8.2 Serum or plasma albumin measurement (mass/volume) 3.5 g/dL 3.2-4.5 Serum or plasma phosphate measurement (mass/volume) - 12/17/16 03:57 Serum or plasma phosphate measurement (mass/volume) 3.2 mg/ dL 2.3-4.7 Magnesium - 12/17/16 03:57 Magnesium 1.9 mg/dL 1.8-2.4 Erythrocyte sedimentation rate by westergren method - 12/17/16 03:57 Erythrocyte sedimentation rate by westergren method > mm 0-30 Arterial blood gas measurement - 12/17/16 04:15 Blood pCO2 45 mm[Hg] 35-45 Blood pO2 111 mm[Hg] 79-93 Arterial blood bicarbonate measurement (moles/volume) 31 mmol/L 23-27 Arterial blood base excess by calculation 6.8 mmol/L -2.5-2.5 Arterial blood oxygen saturation measurement 99 % 94-100 * Inhaled oxygen flow rate 35% BIPAP NRG Arterial blood pH measurement with patient temperature correction 7.45 7.37-7.43 Arterial blood carbon dioxide, total measurement (moles/volume) 32.4 mmol/L 21.0-31.0 Body site L RAD NRG Assessment of wrist artery patency prior to arterial puncture YES-POS NRG Setting of ventilation mode NO NRG Measurement of body temperature 98.0 NRG Serum or plasma lithium measurement (moles/volume) - 12/17/16 09:38 BNP level 706.5 pg/mL <100.0 Whole blood basic metabolic panel - 12/18/16 03:56 Serum or plasma sodium measurement (moles/volume) 138 mmol/ L 135-145 Serum or plasma potassium measurement (moles/volume) 3.7 mmol/L 3.6-5.0 Serum or plasma chloride measurement (moles/volume) 94 mmol/ L 98-107 Carbon dioxide 30 mmol/L 21-32 Serum or plasma anion gap determination (moles/volume) 14 mmol/L 5-14 Serum or plasma urea nitrogen measurement (mass/volume) 26 mg/dL 7-18 Serum or plasma creatinine measurement (mass/volume) 0.85 mg /dL 0.60-1.30 Serum or plasma urea nitrogen/creatinine mass ratio 31 0-20 Serum or plasma creatinine measurement with calculation of estimated glomerular filtration rate > NRG Serum or plasma glucose measurement (mass/volume) 141 mg/dL 70-105 Serum or plasma calcium measurement (mass/volume) 9.4 mg/dL 8.5-10.1 Serum or plasma phosphate measurement (mass/volume) - 12/18/16 03:56 Serum or plasma phosphate measurement (mass/volume) 2.8 mg/ dL 2.3-4.7 Magnesium - 12/18/16 03:56 Magnesium 2.1 mg/dL 1.8-2.4 Complete blood count (CBC) with automated white blood cell (WBC) differential - 12/18/16 03:56 Blood leukocytes automated count (number/volume) 10.6 10*3/ uL 4.3-11.0 Blood erythrocytes automated count (number/volume) 3.60 10*6 /uL 4.35-5.85 Venous blood hemoglobin measurement (mass/volume) 11.1 g/dL 11.5-16.0 Blood hematocrit (volume fraction) 35 % 35-52 Automated erythrocyte mean corpuscular volume 98 [foz_us] 80-99 Automated erythrocyte mean corpuscular hemoglobin (mass per erythrocyte) 31 pg 25-34 Automated erythrocyte mean corpuscular hemoglobin concentration measurement ( mass/volume) 32 g/dL 32-36 Automated erythrocyte distribution width ratio 14.9 % 10.0-14.5 Automated blood platelet count (count/volume) 450 10*3/uL 130-400 Automated blood platelet mean volume measurement 9.0 [foz_us ] 7.4-10.4 Automated blood neutrophils/100 leukocytes 91 % 42-75 Automated blood lymphocytes/100 leukocytes 3 % 12-44 Blood monocytes/100 leukocytes 6 % 0-12 Automated blood eosinophils/100 leukocytes 0 % 0-10 Automated blood basophils/100 leukocytes 0 % 0-10 Blood neutrophils automated count (number/volume) 9.6 10*3 1.8-7.8 Blood lymphocytes automated count (number/volume) 0.4 10*3 1.0-4.0 Blood monocytes automated count (number/volume) 0.6 10*3 0.0-1.0 Automated eosinophil count 0.0 10*3/uL 0.0-0.3 Automated blood basophil count (count/volume) 0.0 10*3/uL 0.0-0.1 Encounters ACCT No. Visit Date/Time Discharge Status Pt. Type Provider Facility Loc./Unit Complaint [id number] 05/05/2016 10:39:00 2016 00:01:00 DIS Outpatient LUIS, BOBAN N [facility] ONC [id number] 03/08/2016 12:35:00 2015 10:49:00 DIS Outpatient LAURA SMITH Liyah [facility] ONC [id number] 02/28/2016 06:24:00 2015 11:45:00 DIS Outpatient MARJORIE KENDALL DO [facility] SDC CANCER [id number] 02/24/2016 19:57:00 2015 06:38:00 DIS Outpatient MARJORIE KENDALL DO [facility] SLEEP MAIA,SLEEP DISTURBANCE [id number] 02/23/2016 10:23:00 2015 00:01:00 DIS Outpatient LAURA SMITH [facility] ONC [id number] 05/19/2015 10:48:00 2014 23:59:59 CLS Outpatient ELY ALVAREZ [facility] ONC [id number] 02/18/2015 08:52:00 2014 00:01:00 DIS Outpatient LUISLAURA Liyah [facility] ONC [id number] 03/24/2015 06:00:00 2014 10:27:00 DIS Inpatient NOHEMY CHANEL MD [facility] SURGICAL STENOSIS [id number] 03/17/2015 20:02:00 2014 06:44:00 DIS Outpatient MARJORIE KENDALL DO [facility] SLEEP SNORING,OBSERVED SLEEP APNEA [id number] 03/10/2015 09:05:00 2014 23:59:59 CLS Outpatient NOHEMY CHANEL MD [facility] PREOP STENOSIS [id number] 02/28/2015 10:33:00 2014 23:59:59 CLS Outpatient MARJORIE KENDALL DO [facility] RAD LUNG NODULE, COPD [id number] 02/21/2015 11:05:00 2014 23:59:59 CLS Outpatient JHONY BAUMANN [facility] RAD RT LOWER LEG SWELLING [id number] 02/19/2015 10:37:00 2014 23:59:59 CLS Outpatient JUSTIN CAZARES [facility] QUICK [id number] 02/06/2015 13:57:00 2014 23:59:59 CLS Outpatient NOHEMY CHANEL MD [facility] RAD STENOSIS [id number] 01/29/2015 12:57:00 2014 23:59:59 CLS Outpatient MARJORIE KENDALL DO [facility] RT COPD [id number] 11/12/2014 08:25:00 2014 10:20:00 DIS Inpatient SHANNAN CISNEROS DO [facility] SURGICAL DEGENERATIVE DISC DISEASE [id number] 10/29/2014 09:59:00 2014 23:59:59 CLS Outpatient SHANNAN CISNEROS DO [facility] PREOP DEGENERATIVE DISC DISEASE [id number] 10/22/2014 07:57:00 2014 10:58:00 DIS Outpatient RYAN PAYNE MD [facility] ERROSIVE ESPHOGITIS [id number] 10/17/2014 06:08:00 2014 23:59:59 CLS Outpatient RYAN PAYNE MD [facility] PREOP ERROSIVE ESOPHAGITIS [id number] 10/02/2014 09:39:00 2014 23:59:59 CLS Outpatient ELY ALVAREZ [facility] ONC [id number] 06/04/2014 07:19:00 2013 23:59:59 CLS Out[facility] DYSPHASIA CHEST [facility]IN [id number] 05/31/2014 06:00:00 2013 23:59:59 CLS Outpatient RYAN PAYNE MD [facility] PREOP DYSPHASIA CHEST PAIN [id number] 05/29/2014 10:57:00 2013 23:59:59 CLS Outpatient MARJORIE KENDALL DO [facility] RAD LUNG NODULE, COPD [id number] 05/27/2014 10:25:00 2013 23:59:59 CLS Outpatient LEONIDAS MAYORGA, BRAXTON Ashton [facility] CARD CAD,CHF,DM [id number] 05/27/2014 09:38:00 2013 23:59:59 CLS Outpatient LAURA SMITH [facility] ONC [id number] 05/14/2014 06:08:00 2013 08:55:00 DIS Inpatient SHANNAN CISNEROS DO [facility] SURGICAL LEFT SHOULDER DJD [id number] 04/30/2014 09:56:00 2013 23:59:59 CLS Outpatient SHANNAN CISNEROS DO [facility] PREOP LEFT SHOULDER DJD [id number] 04/05/2014 09:58:00 2013 23:59:59 CLS Outpatient SHANNAN CISNEROS DO [facility] RAD RT SHOULDER PAIN, PARTIAL RTC [id number] 04/01/2014 09:37:00 2013 00:01:00 DIS Outpatient LAURA SMITH [facility] ONC [id number] 01/16/2014 09:51:00 2013 23:59:59 CLS Outpatient SHANNAN CISNEROS DO [facility] RAD PAIN [id number] 01/14/2014 13:08:00 2013 23:59:59 CLS Outpatient ALLEN ROUSSEAU MD [facility] RAD CHEST HEAVINESS, PULMONARY FIBROSIS [id number] 10/04/2013 13:22:00 2013 00:01:00 DIS Outpatient LAURA SMITH [facility] ONC [id number] 12/18/2013 10:00:00 2013 00:01:00 DIS Outpatient MARJORIE KENDALL DO [facility] PULM COPD,SOB [id number] 12/12/2013 16:27:00 2013 23:59:59 CLS Outpatient ALLEN ROUSSEAU MD [facility] RAD FALL LT SHOULDER AND HIP PAIN [id number] 10/04/2013 13:51:00 2013 23:59:59 CLS Outpatient ALLEN ROUSSEAU MD [facility] LAB [id number] 10/04/2013 08:19:00 2013 23:59:59 CLS Outpatient ALLEN ROUSSEAU MD [facility] RAD OSTEOPENIA [id number] 09/24/2013 09:43:00 2013 23:59:59 CLS Outpatient ARAVIND HOOKER MD [facility] RAD CERVICAL MYLOPATHY [id number] 08/21/2013 10:00:00 2013 00:01:00 DIS Outpatient MARJORIE KENDALL DO [facility] PULM COPD,SOB [id number] 09/20/2013 07:33:00 2013 23:59:59 CLS Outpatient MARJORIE KENDALL DO [facility] RAD LUNG CA,PULM NODULE [id number] 08/30/2013 11:47:00 2013 23:59:59 CLS Outpatient MARJORIE KENDALL DO [facility] LAB SOLITARY PULM NODULE,COPD,CA OF LUNG, CHF [id number] 07/24/2013 11:15:00 2013 23:59:59 CLS Outpatient KENROY LEWIS MD [facility] LAB MATURE T-CELL LYMPHOMA [id number] 07/12/2013 09:12:00 2013 23:59:59 CLS Outpatient ALLEN ROUSSEAU MD [facility] RAD SCREENING [id number] 07/10/2013 09:35:00 2013 23:59:59 CLS Outpatient ALLEN ROUSSEAU MD [facility] LAB ANEMIA [id number] 07/10/2013 09:04:00 2013 23:59:59 CLS Outpatient OLE CARRIZALES [facility] LAB HYPERLIPIDEMIA [id number] 06/13/2013 08:36:00 2012 23:59:59 CLS Outpatient MARJORIE KENDALL DO [facility] RAD COPD,SOB [id number] 05/23/2013 15:32:00 2012 23:59:59 CLS Outpatient STEPH HOOKER DO [facility] RAD RT GROIN PAIN [id number] 05/16/2013 07:29:00 2012 14:15:00 DIS Outpatient BRAXTON LAUREN MD [facility] CATH CHF,CAD,HLP,SOB,ABN STRESS,NIDDM [id number] 05/11/2013 08:29:00 2012 12:05:00 DIS Outpatient RYAN PAYNE MD [facility] LOWER GI BLEED [id number] 05/10/2013 07:26:00 2012 23:59:59 CLS Outpatient RYAN PAYNE MD [facility] PREOP LOWER GI BLEED [id number] 05/07/2013 07:24:00 2012 23:59:59 CLS Outpatient BRAXTON LAUREN MD [facility] RAD CHF,COPD,SOB [id number] 04/22/2013 13:57:00 2012 10:40:00 DIS Inpatient ALLEN ROUSSEAU MD [facility] 4TH COLITIS, LOWER GI BLEED [id number] 04/10/2013 07:42:00 2012 23:59:59 CLS Outpatient ALLEN ROUSSEAU MD [facility] CARD HEART MURMUR,HX OF RADIATION TO CHEST [id number] 03/12/2013 09:52:00 2012 16:45:00 DIS Outpatient ARAVIND HOOKER MD [facility] SDC HERNIATED LUMBAR [id number] 03/09/2013 11:40:00 2012 23:59:59 CLS Outpatient ARAVIND HOOKER MD [facility] PREOP HERNIATED LUMBAR [id number] 02/11/2013 22:24:00 2012 00:59:00 DIS Emergency BRITT SAEED DO [facility] ER BACK PAIN [id number] 02/01/2013 13:22:00 2012 23:59:59 CLS Outpatient ALLEN ROUSSEAU MD [facility] RAD BILAT HIP AND BACK PAIN [id number] 01/16/2013 12:14:00 2012 23:59:59 CLS Outpatient ALLEN ROUSSEAU MD [facility] RAD FALL C/O R HIP/PELVIC PAIN [id number] 12/16/2016 09:33:00 ACT Inpatient KATIUSKA AGUDELO MD [facility] ICU VOLUME DEPLETION,ALTERED MENTAL STATUS,ACUTE ADREN [id number] 12/10/2016 08:04:00 ACT Outpatient COURTNEY JORGE MD [facility] WOUNDCARE [id number] 12/09/2016 08:00:00 ACT Outpatient MARJORIE KENDALL DO [facility] PULM R09.02 J18.9 M79.7 M19.90 [id number] 12/06/2016 13:29:00 ACT Outpatient MARJORIE KENDALL DO [facility] RAD R09.02 J18.9 M79.7 M19.90 [id number] 10/14/2016 11:59:00 ACT Outpatient JHONY BAUMANN [facility] RAD PNEUMONIA FLU [id number] 10/14/2016 09:47:00 ACT Outpatient LAURA SMITH [facility] ONC [id number] 03/08/2016 13:16:00 ACT Outpatient COURTNEY DOBSON MD [facility] LAB [id number] 02/27/2016 11:58:00 ACT Outpatient ELY ALVAREZP [facility] RAD SOB,CHEST PAIN [id number] 02/23/2016 12:17:00 ACT Outpatient COURTNEY DOBSON MD [facility] LAB [id number] 02/09/2016 10:00:00 ACT Outpatient ELY ALVAREZ NAIL TECH [facility] ONC [id number] 01/15/2016 11:08:00 ACT Outpatient MUKESH MARTINEZ APRN [facility] RAD SOB,COPD,ASTHMA [id number] 12/15/2015 08:55:00 ACT Outpatient ELY ALVAREZ [facility] ONC [id number] 10/16/2015 14:54:00 ACT Outpatient LAURA SMITH [facility] ONC [id number] 10/29/2014 10:52:00 Document Registration
[2016-12-21] MEDS ORDERED: NON-FORMULARY MEDICATION 1 EA EA PO SCH ×2 (11:15)
[2016-12-21] MEDS ORDERED: NON-FORMULARY MEDICATION 1 EA EA TOP SCH (11:15)
[2016-12-21 12:18] VITALS: BP 134/80
--- NOTE | 2016-12-21 12:53 | Physical Therapy Evaluation ---
PT Evaluation-General Medical Diagnosis Admission Date Dec 21, 2016 at 10:25 Medical Diagnosis: Adrenal crisis Onset Date: Dec 18, 2016 Therapy Diagnosis Therapy Diagnosis: weakness, abn gait Height/Weight Height (Feet): 5 Height (Inches): 4.00 Weight (Pounds): 145 Weight (Ounces): 3.0 Precautions Precautions/Isolations: Fall Prevention, Standard Precautions Weight Bear Status Location Restriction: LE Bilateral Referral Physician: Danny Reason for Referral: Evaluation/Treatment Medical History Pertinent Medical History: Arthritis, COPD, HTN, Lymphoma Additional Medical History Chronic leukemic vasculitis, fibromyalgia, chronic steroid use. [facility] and weakness due to not taking prescribed meds regularly. Reviewed History: Yes Social History Home: Multilevel (but can stay on 1 level) Current Living Status: Spouse Entry Into Home: Stairs Without Railing (2) Prior/Core FIM Prior Level of Function Functional [place] Measure 0=Not Assessed/NA 4=Minimal Assistance 1=Total Assistance 5=Supervision or Setup 2=Maximal Assistance 6=Modified [place] 3=Moderate Assistance 7=Complete [place] Bed Mobility: 7 Transfers (B,C,W/C) (FIM): 7 Gait: 6 (4 WW) Able to ambulate in the community, cooks. Able to complete ADL's PT Evaluation-Current Subjective Agrees to PT and glad to be on rehab unit. Pain Numeric Pain Scale: 4 Comment: "all over" reports a hx of RLS and fibromyalgia; "even my skin hurts" Pt/Family Goals Home with spouse when able. Would like to have [facility] when discharged as well. Objective Patient Orientation: Person, Place, Time, Situation Problem Solving: Good Attachments: Oxygen (3l/min ) ROM/Strength ROM Lower Extremities WFL; lacks full extension right knee. Strenght Lower Extremities Gross B LE strength is 4/5 throughout Integumentary/Posture Integumentary Refer to nursing notes. Bowel Incontinence: No Bladder Incontinence: No Posture slight rounded shoulder. Neuromuscular (Tone, Coordination, Reflexes) Functional Sensory Vision: Wears Glasses Hearing: Functional Hand Dominance: Right Sensation Right Lower Extremit: Intact Sensation Left Lower Extremity: Intact Transfers Functional [place] Measure 0=Not Assessed/NA 4=Minimal Assistance 1=Total Assistance 5=Supervision or Setup 2=Maximal Assistance 6=Modified [place] 3=Moderate Assistance 7=Complete IndependenceIRFPAI Quality Coding Scale 6 Independent with activity with or without an assistive device 5 Patient requires set up or clean up by helper. Patient completes activity by themselves 4 Supervision or touching assist (CGA). [place] provide cues , steadying assist 3 The helper provides less than half the effort to complete the activity 2 The helper provides more than half the effort to complete the activity 1 Dependent. The helper does all the effort to complete an activity 7 Patient refused to complete or attempt activity 9 The patient did not perform the activity before the current illness or injury 88 Not attempted due to Medical conditions or safety concerns Transfers (B, C, W/C) (FIM): 3 Scootin Roll Left to Right (QC): 4 Supine to/from Sit: 3 (mod assist to lift trunk) Sit to/from Stand: 4 Sit to Lying (QC): 4 Lying to Sitting/Side of Bed(Q: 3 Sit to Stand (QC): 4 Chair/Moi-bn-Pavdk Xfer(QC): 4 Car Transfer (QC): 88 Gait Does the Patient Walk?: Yes Mode of Locomotion: Walk Anticipated Mode of Locomotion: Walk Gait (FIM): 4 Distance (FIM): 3=150 ft Walk 10 feet (QC): 4 Walk 50 ft with 2 Turns(QC): 4 Walk 150 ft (QC): 4 Walking 10ft/uneven surface-QC: 4 Gait Assistive Device: FWW Comments/Gait Description Steady and slow gait. Wheelchair Training Does the Pt Use a Wheelchair?: No Stairs Stairs (FIM): 2 #of Steps: 4 1 Step (curb) (QC): 4 4 Steps (QC): 4 12 Steps (QC): 88 Reciprocal pattern Balance Sitting Static: Normal Sitting Dynamic: Normal Standing Static: Fair Standing Dynamic: Fair Picking up an Object (QC): 88 Treatment Gait training and safe use of FWW. Education on ARU expectation and daily schedule. Worked on functional bed mobility and transfers. Assessment/Needs Presents with a decline in ability to transfer or ambulate due to acute weakness and recent hospital stay. She has limited LE strength that impairs bed mobility, transfers and safety with ambulation. She will benefit from skilled PT to address these needs to allow her to return home as before. Rehab Potential: Good PT Short Term Goals Short Term Goals Time Frame: Dec 28, 2016 Transfers (B,C,W/C) (FIM): 5 Gait (FIM): 5 PT Long-Term Goals Long-Term Goals PT Service Center Appraiser Goals Time Frame: Jan 04, 2017 Transfers (B,C,W/C) (FIM): 7 Sit to Lying (QC): 6 Lying-Sitting on Side/Bed(QC): 6 Sit to Stand (QC): 6 Roll Left to Right (QC): 6 Chair/Zvg-sy-Fmnhh Xfer(QC): 6 Car Transfer (QC): 6 Does the Patient Walk: Yes Gait (FIM): 6 Gait distance (FIM): 3=150 ft Walk 10 feet (QC): 6 Walk 10ft-Uneven Surface(QC): 6 Walk 50ft with 2 Turns (QC): 6 Walk 150 ft (QC): 6 Gait Level of Assist: 6 Gait Assistive Device: FWW Does the Pt use WC or Scooter?: No Stairs (FIM): 5 # of Steps: 8 1 Step (curb) (QC): 5 4 Steps (QC): 5 12 Steps (QC): 88 Picking up an Object (QC): 5 All LTG's are set to allow pt to return home as before and care for herself and mobilize without assist. PT Plan Problem List Problem List: Activity Tolerance, Functional Strength, Safety, Balance, Gait, Transfer, Bed Mobility Treatment/Plan Treatment Plan: Continue Plan of Care Treatment Plan: Bed Mobility, Education, Functional Activity Shane, Functional Strength, Group Therapy, Gait, Safety, Therapeutic Exercise, Transfers Treatment Duration: Jan 04, 2017 # of days/week 10-15 Visits Per Week: 12 Safety Risks/Education Patient Education: Transfer Techniques, Safety Issues Teaching Recipient: Patient Teaching Methods: Demonstration, Discussion Response to Teaching: Reinforcement Needed Discharge Recommendations Therapy D/C Recommendations: Physical Therapy Home Care Time/GCodes Time In: 1010 Time Out: 1100 Total Billed Treatment Time: 50 Total Billed Treatment visit EVM 15 GT 15 FA 10 KEATON SNIDER PT Dec 21, 2016 12:53
--- NOTE | 2016-12-21 13:03 | Physical Therapy Daily Note ---
PT Daily Note-Current Subjective Agreeable to discussion. Transfers Functional [place] Measure 0=Not Assessed/NA 4=Minimal Assistance 1=Total Assistance 5=Supervision or Setup 2=Maximal Assistance 6=Modified [place] 3=Moderate Assistance 7=Complete IndependenceIRFPAI Quality Coding Scale 6 Independent with activity with or without an assistive device 5 Patient requires set up or clean up by helper. Patient completes activity by themselves 4 Supervision or touching assist (CGA). [place] provide cues , steadying assist 3 The helper provides less than half the effort to complete the activity 2 The helper provides more than half the effort to complete the activity 1 Dependent. The helper does all the effort to complete an activity 7 Patient refused to complete or attempt activity 9 The patient did not perform the activity before the current illness or injury 88 Not attempted due to Medical conditions or safety concerns Treatments Pt has a custom knee brace that has been recommended by her orthopedic physician. However, she will not be able to obtain it until discharge. Spent time visiting with patient and daughter regarding brace options while here in hospital. Pt has a neoprene brace she can use. Daughter to bring brace in for patient use. Educated pt and daughter on how the brace is helpful and the advantages of using it while here. Verbalized understanding. Assessment Verbalized understandign. PT Short Term Goals Short Term Goals Time Frame: Dec 28, 2016 Transfers (B,C,W/C) (FIM): 5 Gait (FIM): 5 PT Commanding Officer Motorized Squad Goals Commanding Officer Motorized Squad Goals PT Commanding Officer Motorized Squad Goals Time Frame: Jan 04, 2017 Transfers (B,C,W/C) (FIM): 7 Sit to Lying (QC): 6 Lying-Sitting on Side/Bed(QC): 6 Sit to Stand (QC): 6 Roll Left to Right (QC): 6 Chair/Cmx-xa-Pbaxe Xfer(QC): 6 Car Transfer (QC): 6 Does the Patient Walk: Yes Gait (FIM): 6 Gait distance (FIM): 3=150 ft Walk 10 feet (QC): 6 Walk 10ft-Uneven Surface(QC): 6 Walk 50ft with 2 Turns (QC): 6 Walk 150 ft (QC): 6 Gait Level of Assist: 6 Gait Assistive Device: FWW Does the Pt use WC or Scooter?: No Stairs (FIM): 5 # of Steps: 8 1 Step (curb) (QC): 5 4 Steps (QC): 5 12 Steps (QC): 88 Picking up an Object (QC): 5 PT Plan Treatment/Plan Treatment Plan: Continue Plan of Care Treatment Plan: Bed Mobility, Education, Functional Activity Shane, Functional Strength, Group Therapy, Gait, Safety, Therapeutic Exercise, Transfers Treatment Duration: Jan 04, 2017 Visits Per Week: 12 Safety Risks/Education Patient Education: Reviewed Don/Doff Brace Teaching Recipient: Patient, Family Teaching Methods: Discussion Response to Teaching: Verbalize Understanding Time/GCodes Time In: 1230 Time Out: 1240 Total Billed Treatment Time: 10 Total Billed Treatment visit FA 10 KEATON SNIDER PT Dec 21, 2016 13:03
[2016-12-21] MEDS: methylPREDNISolone 40 MG/ML (Solu-MEDROL) VIAL IV SCH ×2 (13:44→17:31)
[2016-12-21] MEDS: SUCRALFATE 1 GM (CARAFATE) TAB PO SCH ×3 (13:44→20:37)
[2016-12-21] MEDS: DICLOFENAC 1% GEL 100 GM (VOLTAREN) TUBE TOP SCH ×3 (13:50→20:42)
--- NOTE | 2016-12-21 14:47 | Physical Therapy Daily Note ---
PT Daily Note-Current Subjective Pt. up in room with family and nurse present, agrees to PT. Post session pt. reports she is fatigued. Mental Status Patient Orientation: Normal For Age Attachments: Oxygen Transfers Functional [place] Measure 0=Not Assessed/NA 4=Minimal Assistance 1=Total Assistance 5=Supervision or Setup 2=Maximal Assistance 6=Modified [place] 3=Moderate Assistance 7=Complete IndependenceIRFPAI Quality Coding Scale 6 Independent with activity with or without an assistive device 5 Patient requires set up or clean up by helper. Patient completes activity by themselves 4 Supervision or touching assist (CGA). [place] provide cues , steadying assist 3 The helper provides less than half the effort to complete the activity 2 The helper provides more than half the effort to complete the activity 1 Dependent. The helper does all the effort to complete an activity 7 Patient refused to complete or attempt activity 9 The patient did not perform the activity before the current illness or injury 88 Not attempted due to Medical conditions or safety concerns Transfers (B, C, W/C) (FIM): 4 Sit to/from Stand: 4 Gait Training Does the Patient Walk?: Yes Gait (FIM): 4 Distance (FIM): 3=150 ft Distance: x 100 ft, x 150 ft Gait Level of Assist: 4 Gait Persons Needed: 1 Gait Assistive Device: Walker 4 Wheeled Exercises Standing: Hip Abduction, Hamstring curls, Marching Standing Reps: 20 NuStep Minutes: 12 NuStep Workload: 4 Treatments gait, exercise Assessment Current Status: Good Progress Pt. did well with exercises and gait but was fatigued post session. Pt. appears occasionally impulsive with her movement, CGA/SBA needed at this time for safety. Pt. seated at EOB post session with family, all needs met. PT Short Term Goals Short Term Goals Time Frame: Dec 28, 2016 Transfers (B,C,W/C) (FIM): 5 Gait (FIM): 5 PT Fpc Goals Fpc Goals PT Fpc Goals Time Frame: Jan 04, 2017 Transfers (B,C,W/C) (FIM): 7 Sit to Lying (QC): 6 Lying-Sitting on Side/Bed(QC): 6 Sit to Stand (QC): 6 Roll Left to Right (QC): 6 Chair/Gga-ck-Boubu Xfer(QC): 6 Car Transfer (QC): 6 Does the Patient Walk: Yes Gait (FIM): 6 Gait distance (FIM): 3=150 ft Walk 10 feet (QC): 6 Walk 10ft-Uneven Surface(QC): 6 Walk 50ft with 2 Turns (QC): 6 Walk 150 ft (QC): 6 Gait Level of Assist: 6 Gait Assistive Device: FWW Does the Pt use WC or Scooter?: No Stairs (FIM): 5 # of Steps: 8 1 Step (curb) (QC): 5 4 Steps (QC): 5 12 Steps (QC): 88 Picking up an Object (QC): 5 PT Plan Treatment/Plan Treatment Plan: Continue Plan of Care Treatment Plan: Bed Mobility, Education, Functional Activity Shane, Functional Strength, Group Therapy, Gait, Safety, Therapeutic Exercise, Transfers Treatment Duration: Jan 04, 2017 Visits Per Week: 12 Time/GCodes Time In: 1345 Time Out: 1415 Total Billed Treatment Time: 30 Total Billed Treatment 1, Ex 20', GT 10' VILMA BRAND PT Dec 21, 2016 14:47
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
--- NOTE | 2016-12-21 14:56 | ST Cognitive Linguistic Eval ---
Speech Evaluation-General Medical Diagnosis Adrenal crisis Onset Date: Dec 18, 2016 Therapy Diagnosis Therapy Diagnosis: Mild Cognitive Impairment Precautions Precautions/Isolations: Fall Prevention, Standard Precautions Referral Referring Physician: Dr. Aaron Delgado Reason for Referral: Evaluation/Treatment Cognitive Evaluation Medical History Pertinent Medical History: Arthritis, COPD, HTN, Lymphoma Reviewed History: Yes Social History Home: Single Level (Two steps to enter the house from the garage.) Current Living Status: Spouse Speech PLF-Current Status Prior Level of Function The patient denied previous challenges with speech, language, or cognition. Subjective The patient was recently admitted to [facility] with a diagnosis of adrenal crisis. The patient greeted the clinician appropriately and was agreeable to participation in the cognitive evaluation. To note, the patient's family members were present at bedside. Language Eval: Auditory Comprehends Simple Yes/No Ques: Functional Indent/Objects Multiple [place]: Functional Ident/Pics in Multiple Garcia: Functional Follows 1-Step Commands: Functional Follows Complex Directions: Mild (Repetition required for increased accuracy.) Follows General Conversations: Functional Language Eval: Verbal Language Completes Spontaneous Greeting: Functional Produces Auto, Serial Info: Functional Imitates Simple Words/Phrases: Functional Word Finding: Mild Requests Basic Needs: Functional States Basic Personal Info: Functional Expresses Complex Ideas: Functional Language Evaluation: Reading Comprehends Single Nouns: Functional Follows Simple Written Direct: Functional Cognitive Patient Orientation The patient is oriented to month, day, date, and year (independently). Objective Cognitive Domain Attention: WNL Memory: Mild Problem Solving: Mild Objective Impression The patient demonstrated a mild cognitive deficit in the areas of short-term recall (memory). Communication/Social Cognition Comprehension: 4 Expression: 5 Social Interaction: 6 Problem Solvin Memory: 4 Speech Patient Assess Expression of Ideas/Wants: Expression (4) Understanding [place] Content: Usually Understands (3) Brief Interview-Mental Status: Yes Repetition of Three Words: Three (3) Temporal Orientation: Year: Correct (3) Temporal Orientation: Month: Accurate within 5 days(2) Temporal Orientation: Day: Correct (1) Recall : Wear to say "Sock": Yes, no cue required (2) Recall : Color: Yes, no cue required (2) Recall : Bed: Yes, no cue required (2) Speech Short Term Goals Short Term Goals Short Term Goals 1. The patient will demonstrate and recall three functional memory strategies for use at home, independently. 2. The patient will recall three to five single items with a functional memory strategy with 80% accuracy and mild clinician cueing. 3. The patient will demonstrate 90% accuracy with safety problem solving. Time Frame-STG: One Week Speech Diabetes Trainer Goals Fdc Goals 1. The patient will demonstrate improved cognitive skills (memory) for increased safety and function with ADL's in the least restrictive setting. Time Frame: Two Weeks Comprehension: 5 Expression: 6 Social Interaction: 6 Problem Solvin Memory: 5 Speech-Plan Treatment Plan Speech Therapy Treatment Plan: Continue Plan of Care Continue skilled speech pathology to target functional memory strategies for use at home. Treatment Duration: Jan 04, 2017 # of days/week Five. Visits Per Week: Five. Minutes/Day (M-F): 30 Rehab Potential: Good Safety Risks/Education Teaching Recipient: Patient, Family Teaching Methods: Discussion Response to Teaching: Verbalize Understanding Education Topics Provided: Results, Plan of Care, Recommendations Time Speech Therapy Time In: 12:50 Speech Therapy Time Out: 13:20 Total Billed Time: 30 Billed Treatment Time 1, VANNESSA BA Dec 21, 2016 14:56
[2016-12-21] MEDS: RT-ALBUTEROL SULF 2.5 MG/3 ML PRE-MIX VIAL IH SCH (15:58)
[2016-12-21] MEDS: metFORMIN 500 MG (GLUCOPHAGE) TAB PO SCH (17:31)
[2016-12-21] MEDS: RT-ALBUTEROL/IPRATROPIUM 3 ML (DUONEB) VIAL IH SCH (18:49)
[2016-12-21] MEDS: RT-ADVAIR HFA 115/21 MCG PER PUFF IH SCH (18:49)
[2016-12-21 18:56] VITALS: BP 134/82
--- NOTE | 2016-12-21 20:19 | PM&R Post Admission Assessment ---
Post Admission Physician Asses The preadmission screen agrees with the post admission assessment that the patient is a good candidate for inpatient rehabilitation. The patient will have a comprehensive program of inpatient rehabilitation with a goal of maximizing level of functional independence prior to discharge home with spouse and HHC. The patient will have PT/OT ninety minutes per day, each discipline, five days a week for gait, strengthening, conditioning, balance, ADLs, any patient/family/caregiver training as necessary. Speech therapy to do cognitive assessment and treat as indicated. Rehabilitation nursing to assist with bowel, bladder, skin, wound care, medication administration, pain management. Lean Specialist to assist with discharge planning, community reentry. SCD's for DVT prophylaxis. She appears to be well motivated to participate in three hours of therapy a day. She should be able to tolerate three hours of therapy a day from a medical standpoint. She should benefit from the three hours of therapy a day. She has a reasonable discharge plan, reasonable discharge rehabilitation goals and a supportive family. She has various comorbidities that need to be closely monitored with medications and treatments adjusted on a daily basis as needed. These include: vasculitis steroid dependent Copd 02 dependent and steroid dependent Peripheral neuropathy vascular ulcers left leg chronic pain syndrome Type 2 DM Anxiety disorder Barriers to discharge for this patient who had been independent prior to this are for her to be modified independent to supervision for ADLs and mobility skills prior to discharge home with spouse, so as to lessen the burden of the caregivers. Risks for this patient include: 1. Fall 2. Fracture 3. DVT 4. Pulmonary embolism 5. Wound infection 6. Skin breakdown 7. Contractures 8. Poorly controlled pain 9. Urinary retention 10. UTI 11. Respiratory infection 12. Aspiration 13. Resp failure 14. Exac of COPD 15. Poorly controlled DM 16, Poorly controlled HTN 17. Recurrent Lung CA Estimated Length of Stay: 18 days Prognosis: Rehab prognosis appears good for goal of discharge home with spouse and HHC modified independent to supervision for ADLs and mobility skills. Patient seen and examined.Medical records reviewed,Case discussed with staff. JEMAL ROMEO MD Dec 21, 2016 20:19
[2016-12-21] MEDS: ACYCLOVIR 400 MG TABLET (ZOVIRAX) PO SCH (20:37)
[2016-12-21] MEDS: KCL 10 MEQ TAB (MICRO K) PO SCH (20:37)
[2016-12-21] MEDS: morphine ER 15 MG (MS CONTIN) TAB PO SCH (20:38)
[2016-12-21] MEDS: GABAPENTIN 300 MG (NEURONTIN) CAP PO SCH (20:38)
[2016-12-21] MEDS: rOPINIRole 0.25 MG (REQUIP) TAB PO SCH (20:38)
[2016-12-21] MEDS: meTOprolol TARTRATE 50 MG (LOPRESSOR) TAB PO SCH (20:38)
[2016-12-21] MEDS: MONTELUKAST 10 MG (SINGULAIR) TAB PO SCH (20:38)
[2016-12-21] MEDS: PANTOPRAZOLE 40 MG (PROTONIX) TAB PO SCH (20:38)
[2016-12-21] MEDS: MAGNESIUM OXIDE (MAG-OX)400 MG TAB PO SCH (20:38)
[2016-12-21] MEDS: LATANOPROST 0.005% (XALATAN) OPHTH SOLN 2.5 ML OS SCH (20:42)
[2016-12-21] MEDS ORDERED: CLOBETASOL 0.05% TOP SCH (21:00)
[2016-12-21] MEDS: AL HYDROX PO PRN (21:35)
[2016-12-21] MEDS: [UNRECOGNIZED DRUG - OTHER] PO PRN (21:35)
[2016-12-21] MEDS: FAMOTIDINE 20 MG (PEPCID) TABLET PO PRN (21:35)
[2016-12-22] MEDS: methylPREDNISolone 40 MG/ML (Solu-MEDROL) VIAL IV SCH ×4 (02:39→18:00)
[2016-12-22] MEDS: HYDROcodone/APAP 10 MG/325 MG (LORTAB) TAB PO PRN ×2 (04:34→15:47)
[2016-12-22 05:30] VITALS: BP 152/77
[2016-12-22] MEDS: MULTIVIT W/MINERALS TAB (THERAGRAN M) PO SCH (06:01)
[2016-12-22] MEDS: LEVOTHYROXINE 88 MCG (LEVOTHORID) TAB PO SCH (06:01)
[2016-12-22] MEDS: metFORMIN 500 MG (GLUCOPHAGE) TAB PO SCH ×2 (06:01→15:48)
[2016-12-22] MEDS: SUCRALFATE 1 GM (CARAFATE) TAB PO SCH ×4 (06:01→20:33)
[2016-12-22] MEDS: CALCIUM CARB + VIT D 600 MG (CALCARB + D) TAB PO SCH (06:01)
[2016-12-22] MEDS: CATHETER FLUSH 10 ML SYR IV PRN (06:01)
[2016-12-22] MEDS: RT-ADVAIR HFA 115/21 MCG PER PUFF IH SCH ×2 (07:01→19:49)
[2016-12-22] MEDS: RT-ALBUTEROL SULF 2.5 MG/3 ML PRE-MIX VIAL IH SCH ×2 (07:01→15:03)
[2016-12-22] MEDS: UMECLIDINIUM BROMIDE (INCRUSE ELLIPTA) 7'S IH SCH (07:02)
[2016-12-22] MEDS: DICLOFENAC 1% GEL 100 GM (VOLTAREN) TUBE TOP SCH ×4 (08:00→20:35)
[2016-12-22] MEDS: KCL 10 MEQ TAB (MICRO K) PO SCH ×2 (08:03→20:33)
[2016-12-22] MEDS: ENALAPRIL 2.5 MG (VASOTEC) TAB PO SCH (08:03)
[2016-12-22] MEDS: ACYCLOVIR 400 MG TABLET (ZOVIRAX) PO SCH ×2 (08:04→20:33)
[2016-12-22] MEDS: GABAPENTIN 600 MG (NEURONTIN) TAB PO SCH (08:04)
[2016-12-22] MEDS: OMEGA 3 (FISH OIL) 1000 MG CAP PO SCH (08:04)
[2016-12-22] MEDS: amLODIPine 10 MG (NORVASC) TAB PO SCH (08:04)
[2016-12-22] MEDS: SENNA W/DOCUSATE (SENOKOT S) TABLET PO SCH (08:04)
[2016-12-22] MEDS: meTOprolol TARTRATE 50 MG (LOPRESSOR) TAB PO SCH ×2 (08:05→20:34)
[2016-12-22] MEDS: FUROSEMIDE 40 MG/4 ML INJ (LASIX) IVP SCH (08:05)
[2016-12-22] MEDS: morphine ER 15 MG (MS CONTIN) TAB PO SCH ×2 (08:05→20:35)
[2016-12-22] MEDS: DULoxetine 30 MG (CYMBALTA) CAP PO SCH (08:05)
--- NOTE | 2016-12-22 08:32 | Physical Therapy Daily Note ---
PT Daily Note-Current Subjective Agreeable to PT. Reports her daughter brought in her neoprene brace but it doesnt help much. Mental Status Patient Orientation: Person, Place, Time, Situation Transfers Functional [place] Measure 0=Not Assessed/NA 4=Minimal Assistance 1=Total Assistance 5=Supervision or Setup 2=Maximal Assistance 6=Modified [place] 3=Moderate Assistance 7=Complete IndependenceIRFPAI Quality Coding Scale 6 Independent with activity with or without an assistive device 5 Patient requires set up or clean up by helper. Patient completes activity by themselves 4 Supervision or touching assist (CGA). [place] provide cues , steadying assist 3 The helper provides less than half the effort to complete the activity 2 The helper provides more than half the effort to complete the activity 1 Dependent. The helper does all the effort to complete an activity 7 Patient refused to complete or attempt activity 9 The patient did not perform the activity before the current illness or injury 88 Not attempted due to Medical conditions or safety concerns Transfers (B, C, W/C) (FIM): 4 Supine to/from Sit: 4 Sit to/from Stand: 4 CGA for safety with transfers, although pt does not need lifting assist. Gait Training Does the Patient Walk?: Yes Gait (FIM): 4 (CGA at times but not always, SBA as well) Distance (FIM): 3=150 ft Distance: 200 ft x 2; 150 ft x 2 Gait Assistive Device: Walker 4 Wheeled Left knee genu valgum due to joint space narrowing laterally, foot pronation as a result. Stair Training Stair Training: Handrails/: 2 handrails Stairs (FIM): 2 #of Steps: 8 (CGA for safety; reciprocal pattern) Stairs: Pattern: Reciprocal Exercises NuStep Minutes: 10 (To increase functional activity tolerance) NuStep Workload: 4 Assessment Current Status: Good Progress Slight SOA with ambulation but does not need to sit and rest. Pt motivated to participate. PT Short Term Goals Short Term Goals Time Frame: Dec 28, 2016 Gait (FIM): 5 PT Talent Acquisition Relationship Manager Goals Talent Acquisition Relationship Manager Goals PT Talent Acquisition Relationship Manager Goals Time Frame: Jan 04, 2017 Transfers (B,C,W/C) (FIM): 7 Sit to Lying (QC): 6 Lying-Sitting on Side/Bed(QC): 6 Sit to Stand (QC): 6 Roll Left to Right (QC): 6 Chair/Ipr-ba-Nkclz Xfer(QC): 6 Car Transfer (QC): 6 Does the Patient Walk: Yes Gait (FIM): 6 Gait distance (FIM): 3=150 ft Walk 10 feet (QC): 6 Walk 10ft-Uneven Surface(QC): 6 Walk 50ft with 2 Turns (QC): 6 Walk 150 ft (QC): 6 Gait Level of Assist: 6 Gait Assistive Device: FWW Does the Pt use WC or Scooter?: No Stairs (FIM): 5 # of Steps: 8 1 Step (curb) (QC): 5 4 Steps (QC): 5 12 Steps (QC): 88 Picking up an Object (QC): 5 PT Plan Problem List Problem List: Activity Tolerance, Functional Strength, Safety Treatment/Plan Treatment Plan: Continue Plan of Care Treatment Plan: Bed Mobility, Education, Functional Activity Shane, Functional Strength, Group Therapy, Gait, Safety, Therapeutic Exercise, Transfers Treatment Duration: Jan 04, 2017 Visits Per Week: 12 Safety Risks/Education Patient Education: Safety Issues Teaching Recipient: Patient Teaching Methods: Demonstration, Discussion Response to Teaching: Reinforcement Needed Discharge Recommendations Therapy D/C Recommendations: Physical Therapy Home Care Time/GCodes Time In: 730 Time Out: 830 Total Billed Treatment Time: 60 Total Billed Treatment visit GT 30 EX 10 FA 20 KEATON SNIDER PT Dec 22, 2016 08:32
--- NOTE | 2016-12-22 08:48 | Cardiology Progress Note ---
Subjective Date Seen by Provider: Dec 22, 2016 Time Seen by Provider: 08:48 Subjective/Events-last exam Patient sitting up in bed. Complaining of some epigastric pain. Denies any dyspnea, palpitations or lightheadedness. Review of Systems General: No Night Sweats, No Fatigue, No Malaise HEENT: No Visual Changes, Dysphasia, No Sore Throat Pulmonary: No Dyspnea, No Cough Cardiovascular: Chest Pain, No: Edema, Lt Headedness, Palpitations, Paroxysmal Noc. Dyspnea Gastrointestinal: No: Abdominal Pain, Constipation, Diarrhea, Nausea, Vomiting Genitourinary: No Dysuria, No Frequency Musculoskeletal: No: back pain, neck pain Neurological: Weakness, No: Change in speech, Confusion, Incoordination, Numbness Objective-Cardiology Exam Last Set of Vital Signs Vital Signs 12/22/16 12/22/16 05:30 07:05 Temp 97.3 Pulse 93 Resp 18 B/P (MAP) 152/77 Pulse Ox 98 O2 Delivery Nasal Cannula O2 Flow Rate 3.00 Capillary Refill : I&O Bad tableGeneral: Alert, Oriented X3, Cooperative HEENT: Atraumatic, PERRLA Neck: Supple, No JVD, No Thyromegaly Lungs: Clear to Auscultation, Normal Air Movement Heart: Regular Rate, Normal S1, Normal S2, No Murmurs Abdomen: Normal Bowel Sounds, Soft, No Tenderness, No Hepatosplenomegaly, No Masses Extremities: No Clubbing, No Cyanosis, No Edema, Normal Pulses, No Tenderness/ Swelling Skin: No Rashes, No Breakdown, No Significant Lesion Neuro: Normal Gait, Normal Speech, Strength at 5/5 X4 Ext, Normal Tone, Sensation Intact Psych/Mental Status: Mental Status NL, Mood NL A/P-Cardiology Admission Diagnosis Hypertensive urgency Adrenal crisis CAD dyspnea Assessment/Plan Status post hypertensive emergency, blood pressure is better at this time, continue on current medication and monitor closely. Adrenal crisis, on Solu-Medrol IV, improved, managed by primary care physician Change in mental status, improved, continue to monitor Acute shortness of breath, acute respiratory failure, history of severe COPD requiring oxygen, reporting improvement, continue current treatment and monitor. Echocardiogram showed normal left ventricular size with ejection fraction 50-55 percent, mild MR, mild TR, PA pressure 30 mmHg. Continue to monitor. History of congestive heart failure with left ventricular systolic dysfunction, ejection fraction is 50-55 percent per echocardiogram, no signs of congestive heart failure at this time. Chest pain nonspecific etiology, mainly tightness in the chest with increasing breathing efforts. Continue to monitor. Coronary artery disease history of cardiac catheterization done in 2012 showing calcified coronary system with moderate disease, 40 percent stenosis in the mid LAD, 30-40 percent stenosis in the midcircumflex artery, nondominant right coronary artery with 50 percent stenosis. 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 Jones, has been restarted on steroids. History of T-cell leukemia, lymphoma diagnosed in 2009 followed and managed by Dr. 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 History of mild bilateral carotid stenosis, last ultrasound was done in March 2013. Continue to monitor History of syncope in the remote past. No further syncopal episodes were reported, had mild dizziness Diabetes mellitus, Followed and managed by Dr. Peace. Continue to monitor. Osteoarthritis Gastroesophageal reflux disease. Hypothyroidism, maintained on Levoxyl, managed by Dr. West. Fibromyalgia. Status post herniated disc surgery, reporting improvement in her back pain and lower extremity numbness and pain. History of peripheral neuropathy Clinical Quality Measures DVT/VTE Risk/Contraindication: Risk Factor Score Per Nursin RFS Level Per Nursing on Admit: 4+=Very High Contraindications-Pharm: Other *list below* Contraindications-Mechi: Other *list below* Other: PT HAS SEVERE BRUISING DUE TO VASCULITIS, COMPRESSION SOCKS OR SCD'S WOULD CAUSE INCREASE INJURY TO TISSUE, LOVENOX WOULD CAUSE INCREASE BRUISING/INJURY TO LEGS CAUSING SKIN BREAKDOWN OLE CONCEPCION Dec 22, 2016 08:48
--- NOTE | 2016-12-22 11:15 | Speech Therapy Daily Note ---
Speech Daily Progress Note Subjective Date Seen by Provider: Dec 22, 2016 Time Seen by Provider: 09:00 The patient was seated upright in bed upon entrance. The patient greeted the clinician appropriately and was agreeable to participation in the cognitive treatment session. The patient remained pleasant and cooperative throughout therapy on this date. Objective - Orientation: The patient remains oriented to month, day, date, year, and location (independently). - Functional Memory Strategies (External): Functional external memory strategies were discussed, demonstrated, and reviewed on this date. The patient stated she consistently uses notes ("sticky notes"), a calendar (which remains on her fridge), and her to aid her in reminders of important daily events. Per patient, she frequently checks her calendar and "checks in" with family members to make sure she is not missing any importance dates. The patient follows a routine daily, which includes specific times to take medicine (with breakfast and while getting herself ready for bed). Additionally, the patient consistently keeps a pill box to remind herself of her daily medication needs. - The patient was able to accurately recall events of her recent physical therapy appointment (occurred approximately one hour prior), as well as, breakfast items she ordered. Assessment Assessment Current Status: Good Progress Treatment Plan Continue Plan of Care Communication Comprehension: 4 Expression: 5 Social Cognition Social Interaction: 6 Problem Solvin Memory: 4 Speech Short Term Goals Short Term Goals Short Term Goals 1. The patient will demonstrate and recall three functional memory strategies for use at home, independently. 2. The patient will recall three to five single items with a functional memory strategy with 80% accuracy and mild clinician cueing. 3. The patient will demonstrate 90% accuracy with safety problem solving. Time Frame-STG: One Week Speech Parts Classifier Goals Parts Classifier Goals 1. The patient will demonstrate improved cognitive skills (memory) for increased safety and function with ADL's in the least restrictive setting. Time Frame: Two Weeks Comprehension: 5 Expression: 6 Social Interaction: 6 Problem Solvin Memory: 5 Speech-Plan Treatment Plan Speech Therapy Treatment Plan: Continue Plan of Care Continue skilled speech pathology to target functional memory strategies for use at home. Treatment Duration: Jan 04, 2017 # of days/week Five. Visits Per Week: Five. Minutes/Day (M-F): 30 Rehab Potential: Good Safety Risks/Education Teaching Recipient: Patient Teaching Methods: Demonstration, Handout, Discussion Response to Teaching: Verbalize Understanding, Return Demonstration Education Topics Provided: External Memory Strategies Time Speech Therapy Time In: 09:00 Speech Therapy Time Out: 09:30 Total Billed Time: 30 Billed Treatment Time 1, VANNESSA DUENAS Dec 22, 2016 11:15
--- NOTE | 2016-12-22 11:19 | Occupational Ther Daily Note ---
OT Current Status-Daily Note Subjective Pt. does not report overall pain, but does state that the tape on her arms bothers her. Requests for left IV to be taken out. This is reported to nursing. Appearance Pt. on side of bed. Agrees to work with OT. Mental Status/Objective Patient Orientation: Person, Place Functional [place] Measure 0=Not Assessed/NA 4=Minimal Assistance 1=Total Assistance 5=Supervision or Setup 2=Maximal Assistance 6=Modified [place] 3=Moderate Assistance 7=Complete [place] Attachments: IV ADL-Treatment Functional [place] Measure 0=Not Assessed/NA 4=Minimal Assistance 1=Total Assistance 5=Supervision or Setup 2=Maximal Assistance 6=Modified [place] 3=Moderate Assistance 7=Complete IndependenceIRFPAI Quality Coding Scale 6 Independent with activity with or without an assistive device 5 Patient requires set up or clean up by helper. Patient completes activity by themselves 4 Supervision or touching assist (CGA). [place] provide cues , steadying assist 3 The helper provides less than half the effort to complete the activity 2 The helper provides more than half the effort to complete the activity 1 Dependent. The helper does all the effort to complete an activity 7 Patient refused to complete or attempt activity 9 The patient did not perform the activity before the current illness or injury 88 Not attempted due to Medical conditions or safety concerns Grooming (FIM): 5 (Pt. able to brush hair and teeth at sink with SBA.) Oral Hygiene (QC): 4 Bathing (FIM): 5 (Pt. able to wash self in shower with SBA.) Shower/Bathe Self (QC): 4 Upper Body (FIM): 5 Upper Body Dressing (QC): 5 Lower Body Dressing (FIM): 5 Lower Body Dressing (QC): 5 On/Off Footwear (QC): 5 Transfers (B, C, W/C) (FIM): 5 (Pt. utilizes 4 wheeled walker around in room.) Other Treatment Pt. demonstrates good balance in stance. States that she just feels week. Nursing changed leg bandage when in bed after shower. Education OT Patient Education: Modified ADL techniques, Progress toward Goal/Update tx plan, Purpose of tx/functional activities, Reviewed precautions, Rehab process, Transfer techniques Teaching Recipient: Patient Teaching Methods: Demonstration, Discussion Response to Teaching: Verbalize Understanding, Return Demonstration OT Short Term Goals Short Term Goals Time Frame: Dec 28, 2016 Toileting(FIM): 5 Toilet/Commode Transfer(FIM): 5 1=Demonstrate adherence to instructed precautions during ADL tasks. 2=Patient will verbalize/demonstrate understanding of assistive devices/ modifications for ADL. 3=Patient will improve strength/tolerance for activity to enable patient to perform ADL's. OT Alf Goals Manager Pacu Goals Time Frame: Jan 07, 2017 Eating (FIM): 6 Eating (QC): 6 Groomin Oral Hygiene (QC): 6 Bathing(FIM): 6 Shower/Bathe Self (QC): 6 Upper Body Dressing(FIM): 6 Upper Body Dressing (QC): 6 Lower Body Dressing(FIM): 6 Lower Body Dressing (QC): 6 On/Off Footwear (QC): 6 Toileting(FIM): 6 Toileting Hygiene (QC): 6 Toilet/Commode Transfer(FIM): 6 Toilet/Commode Transfer (QC): 6 Shower Transfer(FIM): 6 Comprehension(FIM): 5 Expression (FIM): 6 Social Interaction(FIM): 6 Problem Solving(FIM): 5 Memory(FIM): 5 Additional Goals: 2-Verbalize Understanding, 3-ImproveStrength/Shane 1=Demonstrate adherence to instructed precautions during ADL tasks. 2=Patient will verbalize/demonstrate understanding of assistive devices/ modifications for ADL. 3=Patient will improve strength/tolerance for activity to enable patient to perform ADL's. OT Education/Plan Problem List/Assessment Assessment: Decreased Activ Tolerance, Impaired I ADL's, Impaired Self-Care Skills Pt would benefit from skilled OT to increase her independence in basic self care to allow her to safely return home to live with her family and decrease caregiver burden Discharge Recommendations Plan Pt. is issued theraband and therapy sponge to increase overall UE strength bilaterally. Pt. is educated in exercises to complete. Pt. is able to return demonstrate, but states that she will do them on her own. Tolerated treatment well. Plan/Recommendations: Continue POC Therapy D/C Recommendations: Home w/ Family Support, Occupational Therapy Home Care Treatment Plan/Plan of Care Treatment,Training & Education: Yes Patient would benefit from OT for education, treatment and training to promote independence in ADL's, mobility, safety and/or upper extremity function for ADL' s. Plan of Care: ADL Retraining, Functional Mobility, Group Exercise/Act as Ind ( education, exercise, funct activities, activity tolerance, memory), UE Funct Exercise/Act, UE Neuromus Re-Ed/Coord Treatment Duration: Jan 07, 2017 Visits Per Week: 10-11 Minutes/Day (M-F): 75-90 Minutes/Day (Sat/[place]): PRN Agreement: Yes Rehab Potential: Good Time/GCodes Start Time: 09:30 Stop Time: 10:30 Total Time Billed (hr/min): 60 Billed Treatment Time 1, ADL x 45minutes, EX x 15minutes CASS MURRIETA OT Dec 22, 2016 11:19
[2016-12-22] MEDS: RT-ALBUTEROL/IPRATROPIUM 3 ML (DUONEB) VIAL IH SCH ×2 (12:00→19:49)
--- NOTE | 2016-12-22 15:06 | Therapy Group Daily Note ---
Therapy Daily Group Note Patient Education Topic Other List Below (Memory Strategies) Exercises LE Seated Exercise, UE Exercise Other/Notes Pt ambulated using FWW to OT/PT group. Group consisted of introductions (name, place living, favorite summer activity), socialization, education on memory strategies, memory tasks (remembering each group members summer activity and three words-tub seat, gait belt, walker), seated UE/LE exercises and memory activity. Pt appropriately was able to introduce self and answer questions. Pt contributed to discussions. Actively involved in tasks and activities. Pt verbalized understanding of memory strategies and was able to give own example of a strategy. After therapy, pt ambulated back to room with FWW and sat in recliner. Call light/phone in reach. All needs met in room. Start Time: 13:00 Stop Time: 14:15 Total Billed Treatment Time: 75 Total Billed Treatment 1-GRP KEATON CONTEH Dec 22, 2016 15:06
--- NOTE | 2016-12-22 16:46 | Cardiology Progress Note ---
Subjective Date Seen by Provider: Dec 22, 2016 Time Seen by Provider: 16:45 Subjective/Events-last exam Patient is laying down in bed, denied any chest pain, reporting improvement in her dyspnea. Review of Systems General: No Chills, No Night Sweats, No Fatigue, No Malaise, No Appetite, No Other HEENT: No Head Aches, No Visual Changes, No Eye Pain, No Ear Pain, No Dysphasia , No Sinus Congestion, No Post Nasal Drip, No Sore Throat, No Other Pulmonary: No Dyspnea, No Cough, No Pleuritic Chest Pain, No Other Cardiovascular: No: Chest Pain, Edema, Lt Headedness, Orthopnea, Other, Palpitations, Paroxysmal Noc. Dyspnea Objective-Cardiology Exam Last Set of Vital Signs Vital Signs 12/22/16 12/22/16 05:30 15:03 Temp 97.3 Pulse 93 Resp 18 B/P (MAP) 152/77 Pulse Ox 99 O2 Delivery Nasal Cannula O2 Flow Rate 3.00 Capillary Refill : I&O Bad tableGeneral: Alert, Oriented X3, Cooperative HEENT: Atraumatic, PERRLA Neck: Supple, No JVD, No Thyromegaly Lungs: Clear to Auscultation, Normal Air Movement Heart: Regular Rate, Normal S1, Normal S2, No Murmurs Abdomen: Normal Bowel Sounds, Soft, No Tenderness, No Hepatosplenomegaly, No Masses Extremities: No Clubbing, No Cyanosis, No Edema, Normal Pulses, No Tenderness/ Swelling Skin: No Rashes, No Breakdown, No Significant Lesion Neuro: Normal Gait, Normal Speech, Strength at 5/5 X4 Ext, Normal Tone, Sensation Intact Psych/Mental Status: Mental Status NL, Mood NL A/P-Cardiology Admission Diagnosis Hypertensive urgency Adrenal crisis CAD dyspnea Assessment/Plan Status post hypertensive emergency, blood pressure is better at this time, continue on current medication and monitor closely. Adrenal crisis, on Solu-Medrol IV, improved, managed by primary care physician Change in mental status, improved, continue to monitor Acute shortness of breath, acute respiratory failure, history of severe COPD requiring oxygen, reporting improvement, continue current treatment and monitor. Echocardiogram showed normal left ventricular size with ejection fraction 50-55 percent, mild MR, mild TR, PA pressure 30 mmHg. Continue to monitor. History of congestive heart failure with left ventricular systolic dysfunction, ejection fraction is 50-55 percent per echocardiogram, no signs of congestive heart failure at this time. Chest pain nonspecific etiology, mainly tightness in the chest with increasing breathing efforts. Continue to monitor. Coronary artery disease history of cardiac catheterization done in 2012 showing calcified coronary system with moderate disease, 40 percent stenosis in the mid LAD, 30-40 percent stenosis in the midcircumflex artery, nondominant right coronary artery with 50 percent stenosis. 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 Jones, has been restarted on steroids. History of T-cell leukemia, lymphoma diagnosed in 2009 followed and managed by Dr. 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 History of mild bilateral carotid stenosis, last ultrasound was done in March 2013. Continue to monitor History of syncope in the remote past. No further syncopal episodes were reported, had mild dizziness Diabetes mellitus, Followed and managed by Dr. Peace. Continue to monitor. Osteoarthritis Gastroesophageal reflux disease. Hypothyroidism, maintained on Levoxyl, managed by Dr. West. Fibromyalgia. Status post herniated disc surgery, reporting improvement in her back pain and lower extremity numbness and pain. History of peripheral neuropathy Clinical Quality Measures DVT/VTE Risk/Contraindication: Risk Factor Score Per Nursin RFS Level Per Nursing on Admit: 4+=Very High Contraindications-Pharm: Other *list below* Contraindications-Mechi: Other *list below* Other: PT HAS SEVERE BRUISING DUE TO VASCULITIS, COMPRESSION SOCKS OR SCD'S WOULD CAUSE INCREASE INJURY TO TISSUE, LOVENOX WOULD CAUSE INCREASE BRUISING/INJURY TO LEGS CAUSING SKIN BREAKDOWN BRAXTON LAUREN MD Dec 22, 2016 16:46
[2016-12-22 18:00] VITALS: BP 137/81
--- NOTE | 2016-12-22 19:32 | PM&R History and Physical ---
History of Present Illness Date of Admission Date of Admission Dec 21, 2016 at 10:25 Chief Complaint/HPI Chief Complaint Difficulty with walking HPI 71 yo female who stop her steroids as an outpatient and had resulting adrenal crisis complicating her multiple comorbidities and with a resulting decline in functional [place],Now on IV solumedrol being managed by PCP DR Peace being followed by Cardiology for Coronary art D Being followed by Dr Jones for vasculitis induced ulcers of the leg Being Followed by Dr Nickerson for colpd 02 dependent Had been Modified Independent prior to this and lives with spouse in [place] Please see PT/OT admission evals for details of current functional status PMH-Standard Patient Social History As per above Patient Past Medical History DM.Vasculitis treated with steroids Peripheral neuropathy multifactorial Hx of t cell leukemia being followed by [facility] Hypothyroidism GERD S/P Herniated disc surgery lumbar spine Family Medical History Cardiac Family Hx: Arthritis 19 FATHER 19 MOTHER G8 BROTHER G8 SISTER Cardiovascular disease 19 FATHER G8 SISTER (born with heart defect) Dementia 19 FATHER Parkinson's disease G8 BROTHER Thyroid disease 19 MOTHER No Family History of: AIDS Abdominal aortic aneurysm Alcoholism Asthma Colon cancer Completed stroke Diabetes mellitus Drug abuse Hypertension Kidney disease Myocardial infarction Prostate cancer Psychosocial problem Respiratory disorder Seizure disorder Severe allergy Tuberculosis Allergies and Home Medications Allergies Uncoded Allergies: TAPE (Allergy, Unknown, BRUISING AND SKIN TEARING, REDNESS AND HIVES, ) Home Medications Acetaminophen/Caffeine 1 Each Tablet, 2 TAB PO DAILY PRN for HEADACHE, (Reported ) Acyclovir 400 Mg Tablet, 400 MG PO BID, (Reported) Al Hydrox/Mg Hydrox/Simeth 1 Each Tab.chew, 2 TAB PO TID PRN for INDIGESTION, ( Reported) Albuterol Sulfate 18 Gm Hfa.aer.ad, 2 PUFF IH QID PRN for SHORTNESS OF BREATH, ( Reported) Amlodipine Besylate 10 Mg Tablet, 10 MG PO DAILY for 30 Days, #30 Ref 1 Prescribed by: KATIUSKA PEACE on 12/20/16 1021 Biotin 2,500 Mcg Capsule, 2,500 MCG PO DAILY, (Reported) Calcium Carbonate/Vitamin D3 1 Each Tablet, 1 TAB PO DAILY, (Reported) Clobetasol Propionate 15 Gm Oint...g., TOP DAILY PRN for SORES, (Reported) Clonazepam 1 Mg Tablet, 1-2 MG PO HS, (Reported) Diclofenac Sodium 100 Gm Gel..gram., TOP QID, (Reported) APPLY TO KNEES Duloxetine Hcl 60 Mg Capsule.dr, 60 MG PO DAILY, (Reported) Enalapril Maleate 2.5 Mg Tablet, 2.5 MG PO DAILY, (Reported) Fluticasone/Vilanterol 1 Each Blst.w.dev, 1 PUFF IH DAILY, (Reported) Gabapentin 300 Mg Capsule, 600 MG PO DAILY, (Reported) TAKES 2 (300MG) CAPSULES IN THE MORNING AND 1 (300MG) CAPSULES AT BEDTIME Gabapentin 300 Mg Capsule, 300 MG PO HS, (Reported) TAKES 2 (300MG) CAPSULES IN THE MORNING AND TAKES 1 (300MG) CAPSULES AT BEDTIME Hydrocodone/Acetaminophen 1 Each Tablet, 1 TAB PO Q4H PRN for PAIN-MODERATE, ( Reported) Ipratropium/Albuterol Sulfate 3 Ml Ampul.neb, 3 ML IH QID PRN for SHORTNESS OF BREATH, (Reported) Latanoprost 2.5 Ml Drops, 1 DROP OS HS, (Reported) Levothyroxine Sodium 88 Mcg Tablet, 88 MCG PO DAILY, (Reported) Loratadine 10 Mg Tablet, 10 MG PO DAILY PRN for ALLERGIES, (Reported) Magnesium Oxide 400 Mg Capsule, 400 MG PO HS, (Reported) Metformin HCl 500 Mg Tablet, 500 MG PO BID, (Reported) Metoprolol Tartrate 50 Mg Tablet, 50 MG PO BID for 30 Days, #60 Ref 1 Prescribed by: KATIUSKA PEACE on 12/20/16 1021 Montelukast Sodium 10 Mg Tablet, 10 MG PO HS, (Reported) Morphine Sulfate 15 Mg Tablet.er, 15 MG PO Q12HR for 30 Days, #60 Ref 1 Prescribed by: KATIUSKA PEACE on 12/20/16 1021 Multivitamin 1 Each Tablet, 1 TAB PO DAILY, (Reported) Scheller-3 Fatty Acids/Fish Oil 1 Each Capsule, 1,000 MG PO DAILY, (Reported) Pantoprazole Sodium 40 Mg Tablet.dr, 40 MG PO HS, (Reported) Ropinirole HCl 0.25 Mg Tablet, 0.25 MG PO HS, (Reported) Sennosides/Docusate Sodium 1 Each Tablet, 2 TAB PO DAILY, (Reported) Umeclidinium [place] 62.5 Mcg Blst.w.dev, 1 PUFF IH DAILY, (Reported) ROS Review of Systems Musculoskeletal: leg pain Neurological: Numbness, Weakness Exam Exam Last Set of Vital Signs Vital Signs Date Time Temp Pulse Resp B/P (MAP) Pulse Ox O2 Delivery O2 Flow Rate FiO2 12/22/16 18:00 98.1 98 20 137/81 99 Nasal Cannula 3.00 Capillary Refill : I&O Bad tableGeneral: Alert, Oriented X3, Cooperative HEENT: Atraumatic, PERRLA Neck: Supple, No JVD, No Thyromegaly Lungs: Clear to Auscultation, Normal Air Movement Heart: Regular Rate, Normal S1, Normal S2, No Murmurs Abdomen: Normal Bowel Sounds, Soft, No Tenderness, No Hepatosplenomegaly, No Masses Extremities: No Clubbing, No Cyanosis, No Edema, Normal Pulses, No Tenderness/ Swelling Skin: No Rashes, No Breakdown, No Significant Lesion, Other (Skin ulcers left leg followed by Dr jones lacks full ext rt knee Strength 4/5 all 4 limbs sensation grossly intact) Neuro: Normal Gait, Normal Speech, Strength at 5/5 X4 Ext, Normal Tone, Sensation Intact Psych/Mental Status: Mental Status NL, Mood NL Assessment/Plan Impression/Dx vasculitis induced peripheral neuropathy Vascular ulcers left leg under the care of DR Jones Chronic steroid usage Adrenal crisis now back on steroids Hx T cell leukemia followed by DR Ahmet De Leon HX of small cell lung ca with mets to parotid gland S/P Chemo and RT 1991 now in remission OA S/P Lum,bar spine surgery DM controlled with meds COPD 02 dependent Hypothyroidism on replacemnt GERD Plan Continue PT/OT F/U with PCP DR Peace and DR Jones as well as Dr Robertson as per their schedule Team Conference held earlier today See report for Full current level of function as well as POC H&P done by Template as Dictation line out of service since yesterday Estimated Length of Stay 2 weeks Please see EMAR for current list of medications F/U with DR Peace re duration of IV solumedrol Prognosis Good Diet/Code Status Diet As per admission orders Code Status DNR Barriers to Discharge Please see Separate Yefri Document Risks For This Patient Please see JEMAL Yip MD Dec 22, 2016 19:32
--- NOTE | 2016-12-22 19:53 | PM & R (SOAP) Progress Note ---
Subjective Time Seen by Provider: 08:00 Subjective/Events-last exam Patient was seen in her room earlier today.Appreciate DR Clifton note Prior labs reviewed while on other unit will recheck.Patient min assist for transfers Case discussed with Dr Nickerson Review of Systems Musculoskeletal: leg pain Objective Exam Last Set of Vital Signs Vital Signs Date Time Temp Pulse Resp B/P (MAP) Pulse Ox O2 Delivery O2 Flow Rate FiO2 12/22/16 18:00 98.1 98 20 137/81 99 Nasal Cannula 3.00 Capillary Refill : I&O Bad tableGeneral: Alert, Oriented X3, Cooperative HEENT: Atraumatic, PERRLA Neck: Supple, No JVD, No Thyromegaly Lungs: Clear to Auscultation, Normal Air Movement Heart: Regular Rate, Normal S1, Normal S2, No Murmurs Abdomen: Normal Bowel Sounds, Soft, No Tenderness, No Hepatosplenomegaly, No Masses Extremities: No Clubbing, No Cyanosis, No Edema, Normal Pulses, No Tenderness/ Swelling Skin: No Rashes, No Breakdown, No Significant Lesion, Other (Skin ulcers left leg followed by Dr palafox lacks full ext rt knee Strength 4/5 all 4 limbs sensation grossly intact) Neuro: Normal Gait, Normal Speech, Strength at 5/5 X4 Ext, Normal Tone, Sensation Intact Psych/Mental Status: Mental Status NL, Mood NL Assessment/Plan Assessment vasculitis induced peripheral neuropathy Vascular ulcers left leg under the care of DR Palafox Chronic steroid usage Adrenal crisis now back on steroids Hx T cell leukemia followed 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 JEMAL ROMEO MD Dec 22, 2016 19:53
[2016-12-22] MEDS: rOPINIRole 0.25 MG (REQUIP) TAB PO SCH (20:32)
[2016-12-22] MEDS: MONTELUKAST 10 MG (SINGULAIR) TAB PO SCH (20:32)
[2016-12-22] MEDS: PANTOPRAZOLE 40 MG (PROTONIX) TAB PO SCH (20:33)
[2016-12-22] MEDS: FAMOTIDINE 20 MG (PEPCID) TABLET PO PRN (20:33)
[2016-12-22] MEDS: MAGNESIUM OXIDE (MAG-OX)400 MG TAB PO SCH (20:34)
[2016-12-22] MEDS: GABAPENTIN 300 MG (NEURONTIN) CAP PO SCH (20:34)
[2016-12-22] MEDS: AL HYDROX PO PRN (20:35)
[2016-12-22] MEDS: [UNRECOGNIZED DRUG - OTHER] PO PRN (20:35)
[2016-12-22] MEDS: clonazePAM 0.5 MG (KlonoPIN) TAB PO PRN (21:10)
[2016-12-22] MEDS: LATANOPROST 0.005% (XALATAN) OPHTH SOLN 2.5 ML OS SCH (21:10)
[2016-12-23] MEDS: CATHETER FLUSH 10 ML SYR IV PRN ×4 (00:34→11:16)
[2016-12-23] MEDS: methylPREDNISolone 40 MG/ML (Solu-MEDROL) VIAL IV SCH ×2 (00:34→06:10)
[2016-12-23] MEDS: LEVOTHYROXINE 88 MCG (LEVOTHORID) TAB PO SCH (06:10)
[2016-12-23] MEDS: MULTIVIT W/MINERALS TAB (THERAGRAN M) PO SCH (06:10)
[2016-12-23] MEDS: metFORMIN 500 MG (GLUCOPHAGE) TAB PO SCH ×2 (06:10→17:08)
[2016-12-23] MEDS: CALCIUM CARB + VIT D 600 MG (CALCARB + D) TAB PO SCH (06:10)
[2016-12-23] MEDS: SUCRALFATE 1 GM (CARAFATE) TAB PO SCH ×4 (06:10→20:15)
[2016-12-23 06:23] VITALS: BP 152/64
[2016-12-23 06:25] LABS: BASOPHILS % (AUTO) 0 % (0-10); EOSINOPHILS % (AUTO) 0 % (0-10); LYMPHOCYTES # (AUTO) 0.4 X 10^3 (1.0-4.0); LYMPHOCYTES % (AUTO) 2 % (12-44); MEAN CORPUSCULAR HEMOGLOBIN 31 PG (25-34); MEAN CORPUSCULAR HGB CONC 33 G/DL (32-36); MEAN CORPUSCULAR VOLUME 95 FL (80-99); MEAN PLATELET VOLUME 8.5 FL (7.4-10.4); MONOCYTES # (AUTO) 0.6 X 10^3 (0.0-1.0); MONOCYTES % (AUTO) 3 % (0-12); NEUTROPHILS % (AUTO) 94 % (42-75); PLATELET COUNT 435 10^3/uL (130-400); RED BLOOD COUNT 3.84 10^6/uL (4.35-5.85); RED CELL DISTRIBUTION WIDTH 14.9 % (10.0-14.5)
[2016-12-23 06:55] LABS: ALBUMIN 3.9 GM/DL (3.2-4.5); BILIRUBIN,TOTAL 0.6 MG/DL (0.1-1.0); CALCIUM 8.9 MG/DL (8.5-10.1); CREATININE SERUM 0.98 MG/DL (0.60-1.30); POTASSIUM 4.2 MMOL/L (3.6-5.0); TOTAL PROTEIN 6.9 GM/DL (6.4-8.2)
[2016-12-23] MEDS: RT-ALBUTEROL SULF 2.5 MG/3 ML PRE-MIX VIAL IH SCH ×2 (07:00→15:00)
[2016-12-23] MEDS: RT-ADVAIR HFA 115/21 MCG PER PUFF IH SCH ×2 (07:02→19:19)
[2016-12-23] MEDS: UMECLIDINIUM BROMIDE (INCRUSE ELLIPTA) 7'S IH SCH (07:03)
[2016-12-23 07:12] LABS: LYMPHOCYTES % (MANUAL) 1 %; NEUTROPHILS % (MANUAL) 95 %
[2016-12-23 07:13] LABS: ANISOCYTOSIS SLIGHT
[2016-12-23] MEDS: FUROSEMIDE 40 MG/4 ML INJ (LASIX) IVP SCH (08:17)
[2016-12-23] MEDS: DULoxetine 30 MG (CYMBALTA) CAP PO SCH (08:17)
[2016-12-23] MEDS: ENALAPRIL 2.5 MG (VASOTEC) TAB PO SCH (08:18)
[2016-12-23] MEDS: meTOprolol TARTRATE 50 MG (LOPRESSOR) TAB PO SCH ×2 (08:18→20:14)
[2016-12-23] MEDS: ACYCLOVIR 400 MG TABLET (ZOVIRAX) PO SCH ×2 (08:18→20:13)
[2016-12-23] MEDS: KCL 10 MEQ TAB (MICRO K) PO SCH ×2 (08:18→20:13)
[2016-12-23] MEDS: SENNA W/DOCUSATE (SENOKOT S) TABLET PO SCH (08:18)
[2016-12-23] MEDS: OMEGA 3 (FISH OIL) 1000 MG CAP PO SCH (08:18)
[2016-12-23] MEDS: amLODIPine 10 MG (NORVASC) TAB PO SCH (08:18)
[2016-12-23] MEDS: DICLOFENAC 1% GEL 100 GM (VOLTAREN) TUBE TOP SCH ×4 (08:19→20:16)
[2016-12-23] MEDS: morphine ER 15 MG (MS CONTIN) TAB PO SCH ×2 (08:19→20:14)
[2016-12-23] MEDS: GABAPENTIN 600 MG (NEURONTIN) TAB PO SCH (08:24)
--- NOTE | 2016-12-23 08:57 | Physical Therapy Daily Note ---
PT Daily Note-Current Subjective Pt. states she is in 5/10 pain all over but mostly right knee. State she is very motivated and will work hard to get home. very pleasant lady Pain Numeric Pain Scale: 5-Moderate Pain Location: Right Location Body Site: Knee Pain Description: Ache Mental Status Patient Orientation: Normal For Age Attachments: Oxygen (3L) pt. states she is awaiting brace for right knee. RICK applied to right knee for support Transfers Functional [place] Measure 0=Not Assessed/NA 4=Minimal Assistance 1=Total Assistance 5=Supervision or Setup 2=Maximal Assistance 6=Modified [place] 3=Moderate Assistance 7=Complete IndependenceIRFPAI Quality Coding Scale 6 Independent with activity with or without an assistive device 5 Patient requires set up or clean up by helper. Patient completes activity by themselves 4 Supervision or touching assist (CGA). [place] provide cues , steadying assist 3 The helper provides less than half the effort to complete the activity 2 The helper provides more than half the effort to complete the activity 1 Dependent. The helper does all the effort to complete an activity 7 Patient refused to complete or attempt activity 9 The patient did not perform the activity before the current illness or injury 88 Not attempted due to Medical conditions or safety concerns Transfers (B, C, W/C) (FIM): 5 Scootin Rollin Supine to/from Sit: 5 Sit to/from Stand: 5 Gait Training Does the Patient Walk?: Yes Gait (FIM): 4 Distance (FIM): 3=150 ft (x3) Gait Level of Assist: 4 Gait Persons Needed: 1 Gait Assistive Device: Walker 4 Wheeled needs instruction for gait pattern, assymetry and step length Exercises Supine Ex: Bridging, Ankle pumps, Quad Set, Rolling, Glut sets, Heel Slides, Short Arc Quads, Scooting, Straight leg raise, Hip abd/add (side and sup as well as clam shells) Supine Reps: 12 NuStep Minutes: 8 NuStep Workload: 4 Treatments ther ex and nustep for better gait control as well as movement pattern Assessment Current Status: Good Progress PT Short Term Goals Short Term Goals Time Frame: Dec 28, 2016 Gait (FIM): 5 PT Residential Goals Citrus Picker Goals PT Citrus Picker Goals Time Frame: Jan 04, 2017 Transfers (B,C,W/C) (FIM): 7 Sit to Lying (QC): 6 Lying-Sitting on Side/Bed(QC): 6 Sit to Stand (QC): 6 Roll Left to Right (QC): 6 Chair/Qur-ie-Tyylj Xfer(QC): 6 Car Transfer (QC): 6 Does the Patient Walk: Yes Gait (FIM): 6 Gait distance (FIM): 3=150 ft Walk 10 feet (QC): 6 Walk 10ft-Uneven Surface(QC): 6 Walk 50ft with 2 Turns (QC): 6 Walk 150 ft (QC): 6 Gait Level of Assist: 6 Gait Assistive Device: FWW Does the Pt use WC or Scooter?: No Stairs (FIM): 5 # of Steps: 8 1 Step (curb) (QC): 5 4 Steps (QC): 5 12 Steps (QC): 88 Picking up an Object (QC): 5 PT Plan Treatment/Plan Treatment Plan: Continue Plan of Care Treatment Plan: Bed Mobility, Education, Functional Activity Shane, Functional Strength, Group Therapy, Gait, Safety, Therapeutic Exercise, Transfers Treatment Duration: Jan 04, 2017 Visits Per Week: 12 Safety Risks/Education Patient Education: Gait Training, Transfer Techniques, Correct Positioning, Disease Process, Safety Issues Teaching Recipient: Patient Teaching Methods: Demonstration, Discussion Response to Teaching: Verbalize Understanding, Return Demonstration, Reinforcement Needed Also reviewed use of hand braking and braking for sitting on pts own 4 WW Time/GCodes Time In: 800 Time Out: 845 Total Billed Treatment Time: 45 Total Billed Treatment 1,EX25m,GT20m G Codes Necessary: JULIAN Deleon NURSE RN BSN Dec 23, 2016 08:57
--- NOTE | 2016-12-23 08:59 | PM & R (SOAP) Progress Note ---
Subjective Time Seen by Provider: 07:40 Subjective/Events-last exam Patient was seen in her room this AM Discussed case with RN Patient improving rapidly Patient SBA for transfers with 02 tether line Objective Exam Last Set of Vital Signs Vital Signs Date Time Temp Pulse Resp B/P (MAP) Pulse Ox O2 Delivery O2 Flow Rate FiO2 12/23/16 07:00 98 Nasal Cannula 3.00 12/23/16 06:23 99.1 94 18 152/64 Capillary Refill : I&O Intake and Output 12/23/16 00:00 Intake Total 2150 ml Balance 2150 ml Intake Oral 2150 ml # Voids 7 General: Alert, Oriented X3, Cooperative HEENT: Atraumatic, PERRLA Neck: Supple, No JVD, No Thyromegaly Lungs: Clear to Auscultation, Normal Air Movement Heart: Regular Rate, Normal S1, Normal S2, No Murmurs Abdomen: Normal Bowel Sounds, Soft, No Tenderness, No Hepatosplenomegaly, No Masses Extremities: No Clubbing, No Cyanosis, No Edema, Normal Pulses, No Tenderness/ Swelling Skin: No Rashes, No Breakdown, No Significant Lesion, Other (Skin ulcers left leg followed by Dr jones lacks full ext rt knee Strength 4/5 all 4 limbs sensation grossly intact) Neuro: Normal Gait, Normal Speech, Strength at 5/5 X4 Ext, Normal Tone, Sensation Intact Psych/Mental Status: Mental Status NL, Mood NL Results Lab Laboratory Tests 12/23/16 06:20: White Blood Count 18.0H, Red Blood Count 3.84L, Hemoglobin 12.0, Hematocrit 37, Mean Corpuscular Volume 95, Mean Corpuscular Hemoglobin 31, Mean Corpuscular Hemoglobin Concent 33, Red Cell Distribution Width 14.9H, Platelet Count 435H, Mean Platelet Volume 8.5, Neutrophils (%) (Auto) 94H, Lymphocytes (%) (Auto) 2L , Monocytes (%) (Auto) 3, Eosinophils (%) (Auto) 0, Basophils (%) (Auto) 0, Neutrophils # (Auto) 17.0H, Lymphocytes # (Auto) 0.4L, Monocytes # (Auto) 0.6, Eosinophils # (Auto) 0.0, Basophils # (Auto) 0.0, Neutrophils % (Manual) 95, Lymphocytes % (Manual) 1, Monocytes % (Manual) 4, Anisocytosis SLIGHT, Blood Morphology Comment , Sodium Level 136, Potassium Level 4.2, Chloride Level 93L, Carbon Dioxide Level 25, Anion Gap 18H, Blood Urea Nitrogen 39H, Creatinine 0.98 , Estimat Glomerular Filtration Rate 56, BUN/Creatinine Ratio 40, Glucose Level 132H, Calcium Level 8.9, Total Bilirubin 0.6, Aspartate Amino Transf (AST/SGOT) 25, Alanine Aminotransferase (ALT/SGPT) 52, Alkaline Phosphatase 75, Total Protein 6.9, Albumin 3.9 Assessment/Plan Assessment vasculitis induced peripheral neuropathy Vascular ulcers left leg under the care of DR Jones Chronic steroid usage Adrenal crisis now back on steroids Hx T cell leukemia followed by DR Ahmet De Leon 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 JEMAL ROMEO MD Dec 23, 2016 08:58
--- NOTE | 2016-12-23 09:22 | Cardiology Progress Note ---
Subjective Date Seen by Provider: Dec 23, 2016 Time Seen by Provider: 09:21 Objective-Cardiology Exam Last Set of Vital Signs Vital Signs 12/23/16 12/23/16 06:23 07:00 Temp 99.1 Pulse 94 Resp 18 B/P (MAP) 152/64 Pulse Ox 98 O2 Delivery Nasal Cannula O2 Flow Rate 3.00 Capillary Refill : I&O Intake and Output 12/23/16 00:00 Intake Total 2150 ml Balance 2150 ml Intake Oral 2150 ml # Voids 7 General: Alert, Oriented X3, Cooperative HEENT: Atraumatic, PERRLA Neck: Supple, No JVD, No Thyromegaly Lungs: Clear to Auscultation, Normal Air Movement Heart: Regular Rate, Normal S1, Normal S2, No Murmurs Abdomen: Normal Bowel Sounds, Soft, No Tenderness, No Hepatosplenomegaly, No Masses Extremities: No Clubbing, No Cyanosis, No Edema, Normal Pulses, No Tenderness/ Swelling Skin: No Rashes, No Breakdown, No Significant Lesion, Other (Skin ulcers left leg followed by Dr jones lacks full ext rt knee Strength 4/5 all 4 limbs sensation grossly intact) Neuro: Normal Gait, Normal Speech, Strength at 5/5 X4 Ext, Normal Tone, Sensation Intact Psych/Mental Status: Mental Status NL, Mood NL Results Lab Laboratory Tests 12/23/16 06:20 A/P-Cardiology Admission Diagnosis Hypertensive urgency Adrenal crisis CAD dyspnea Assessment/Plan Status post hypertensive emergency, blood pressure is elevated this morning, has not had BP meds yet this morning. Continue to monitor. Adrenal crisis, on Solu-Medrol IV, improved, managed by primary care physician Change in mental status, improved, continue to monitor Acute shortness of breath, acute respiratory failure, history of severe COPD requiring oxygen, reporting improvement, continue current treatment and monitor. Echocardiogram showed normal left ventricular size with ejection fraction 50-55 percent, mild MR, mild TR, PA pressure 30 mmHg. Continue to monitor. History of congestive heart failure with left ventricular systolic dysfunction, ejection fraction is 50-55 percent per echocardiogram, no signs of congestive heart failure at this time. Chest pain nonspecific etiology, mainly tightness in the chest with increasing breathing efforts. Continue to monitor. Coronary artery disease history of cardiac catheterization done in 2012 showing calcified coronary system with moderate disease, 40 percent stenosis in the mid LAD, 30-40 percent stenosis in the midcircumflex artery, nondominant right coronary artery with 50 percent stenosis. 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 Jones, has been restarted on steroids. History of T-cell leukemia, lymphoma diagnosed in 2009 followed and managed by Dr. 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 History of mild bilateral carotid stenosis, last ultrasound was done in March 2013. Continue to monitor History of syncope in the remote past. No further syncopal episodes were reported, had mild dizziness Diabetes mellitus, Followed and managed by Dr. Peace. Continue to monitor. Osteoarthritis Gastroesophageal reflux disease. Hypothyroidism, maintained on Levoxyl, managed by Dr. West. Fibromyalgia. Status post herniated disc surgery, reporting improvement in her back pain and lower extremity numbness and pain. History of peripheral neuropathy Clinical Quality Measures DVT/VTE Risk/Contraindication: Risk Factor Score Per Nursin RFS Level Per Nursing on Admit: 4+=Very High Contraindications-Pharm: Other *list below* Contraindications-Mechi: Other *list below* Other: PT HAS SEVERE BRUISING DUE TO VASCULITIS, COMPRESSION SOCKS OR SCD'S WOULD CAUSE INCREASE INJURY TO TISSUE, LOVENOX WOULD CAUSE INCREASE BRUISING/INJURY TO LEGS CAUSING SKIN BREAKDOWN OLE CONCEPCION Dec 23, 2016 09:22
--- NOTE | 2016-12-23 09:26 | Consultation ---
History of Present Illness History of Present Illness Patient Consulted On(taya/time) 12/23/16 09:26 Allergies and Home Medications Allergies Uncoded Allergies: TAPE (Allergy, Unknown, BRUISING AND SKIN TEARING, REDNESS AND HIVES, ) Home Medications Acetaminophen/Caffeine 1 Each Tablet, 2 TAB PO DAILY PRN for HEADACHE, (Reported ) Acyclovir 400 Mg Tablet, 400 MG PO BID, (Reported) Al Hydrox/Mg Hydrox/Simeth 1 Each Tab.chew, 2 TAB PO TID PRN for INDIGESTION, ( Reported) Albuterol Sulfate 18 Gm Hfa.aer.ad, 2 PUFF IH QID PRN for SHORTNESS OF BREATH, ( Reported) Amlodipine Besylate 10 Mg Tablet, 10 MG PO DAILY for 30 Days, #30 Ref 1 Prescribed by: KATIUSKA AGUDELO on 12/20/16 1021 Biotin 2,500 Mcg Capsule, 2,500 MCG PO DAILY, (Reported) Calcium Carbonate/Vitamin D3 1 Each Tablet, 1 TAB PO DAILY, (Reported) Clobetasol Propionate 15 Gm Oint...g., TOP DAILY PRN for SORES, (Reported) Clonazepam 1 Mg Tablet, 1-2 MG PO HS, (Reported) Diclofenac Sodium 100 Gm Gel..gram., TOP QID, (Reported) APPLY TO KNEES Duloxetine Hcl 60 Mg Capsule.dr, 60 MG PO DAILY, (Reported) Enalapril Maleate 2.5 Mg Tablet, 2.5 MG PO DAILY, (Reported) Fluticasone/Vilanterol 1 Each Blst.w.dev, 1 PUFF IH DAILY, (Reported) Gabapentin 300 Mg Capsule, 600 MG PO DAILY, (Reported) TAKES 2 (300MG) CAPSULES IN THE MORNING AND 1 (300MG) CAPSULES AT BEDTIME Gabapentin 300 Mg Capsule, 300 MG PO HS, (Reported) TAKES 2 (300MG) CAPSULES IN THE MORNING AND TAKES 1 (300MG) CAPSULES AT BEDTIME Hydrocodone/Acetaminophen 1 Each Tablet, 1 TAB PO Q4H PRN for PAIN-MODERATE, ( Reported) Ipratropium/Albuterol Sulfate 3 Ml Ampul.neb, 3 ML IH QID PRN for SHORTNESS OF BREATH, (Reported) Latanoprost 2.5 Ml Drops, 1 DROP OS HS, (Reported) Levothyroxine Sodium 88 Mcg Tablet, 88 MCG PO DAILY, (Reported) Loratadine 10 Mg Tablet, 10 MG PO DAILY PRN for ALLERGIES, (Reported) Magnesium Oxide 400 Mg Capsule, 400 MG PO HS, (Reported) Metformin HCl 500 Mg Tablet, 500 MG PO BID, (Reported) Metoprolol Tartrate 50 Mg Tablet, 50 MG PO BID for 30 Days, #60 Ref 1 Prescribed by: KATIUSKA AGUDELO on 12/20/16 1021 Montelukast Sodium 10 Mg Tablet, 10 MG PO HS, (Reported) Morphine Sulfate 15 Mg Tablet.er, 15 MG PO Q12HR for 30 Days, #60 Ref 1 Prescribed by: KATIUSKA AGUDELO on 12/20/16 1021 Multivitamin 1 Each Tablet, 1 TAB PO DAILY, (Reported) Solsberry-3 Fatty Acids/Fish Oil 1 Each Capsule, 1,000 MG PO DAILY, (Reported) Pantoprazole Sodium 40 Mg Tablet.dr, 40 MG PO HS, (Reported) Ropinirole HCl 0.25 Mg Tablet, 0.25 MG PO HS, (Reported) Sennosides/Docusate Sodium 1 Each Tablet, 2 TAB PO DAILY, (Reported) Umeclidinium [place] 62.5 Mcg Blst.w.dev, 1 PUFF IH DAILY, (Reported) Past Rgbcoox-Kqkceh-Hrejzc Hx Patient Social History Alcohol Use: Denies Use Recreational Drug Use: No Type Used: Cigarettes Former Smoker/When Quit: November 12, 1994 2nd Hand Smoke Exposure: No Recent Foreign Travel: No Contact w/Someone Who Travel: No Recent Infectious Disease Expo: No Recent Hopitalizations: No Physical Abuse Screen: No Sexual Abuse: No Immunizations Up To Date Tetanus Booster (TDap): Less than 5yrs Date of Pneumonia Vaccine: Mar 29, 2015 Date of Influenza Vaccine: Apr 04, 2014 Seasonal Allergies Seasonal Allergies: No Surgeries HX Surgeries: Yes (LEFT PAROTID RESECTION DUE TO METASTATIC LUNG CANCER, BACK SURGERY, ) Surgeries: Appendectomy, Hysterectomy, Orthopedic, Tonsillectomy Respiratory Hx Respiratory Disorders: Yes (copd, OXYGEN 2/L AT HS AND PRN ) Respiratory Disorders: COPD Cardiovascular Hx Cardiac Disorders: Yes Cardiac Disorders: Hypertension, Valvular Heart Disease Neurological Hx Neurological Disorders: No Reproductive System Hx Reproductive Disorders: No Sexually Transmitted Disease: No HIV/AIDS: No Female Reproductive Disorders: Denies Genitourinary Hx Genitourinary Disorders: No Gastrointestinal Hx Gastrointestinal Disorders: Yes (HX OF GI BLEED ) Gastrointestinal Disorders: Esophagitis Musculoskeletal Hx Musculoskeletal Disorders: Yes Musculoskeletal Disorders: Degenerate Disk Disease, Arthritis, Fibromyalgia, Chronic Back Pain Endocrine Hx Endocrine Disorders: Yes Endocrine Disorders: Hypothyroidsim, Diabetes, Non-Insulin dep HEENT HX ENT Disorders: Yes (GLASSES, STARTING OF GLAUCOMA, SEVERAL CROWNS) HEENT Disorders: Cataract, Tinnitis Loss of Vision: Denies Hearing Impairment: Denies Cancer Hx Cancer: Yes Cancer: Leukemia, Lung, Lymphoma Psychosocial Hx Psychiatric Problems: Yes Behavioral Health Disorders: Anxiety, Depression Integumentary HX Skin/Integumentary Disorder: No (hx of vasculitis) Blood Transfusions Hx Blood Disorders: Yes (PRE LEUKEMIA/LYMPHOMA R/T CHEMO, ) Adverse Reaction to a Blood Tr: No Family Medical History Significant Family History: Heart Disease, Vascular Disease, Other Conditions/ Hx Family Medial History: Arthritis 19 FATHER 19 MOTHER G8 BROTHER G8 SISTER Cardiovascular disease 19 FATHER G8 SISTER (born with heart defect) Dementia 19 FATHER Parkinson's disease G8 BROTHER Thyroid disease 19 MOTHER No Family History of: AIDS Abdominal aortic aneurysm Alcoholism Asthma Colon cancer Completed stroke Diabetes mellitus Drug abuse Hypertension Kidney disease Myocardial infarction Prostate cancer Psychosocial problem Respiratory disorder Seizure disorder Severe allergy Tuberculosis Physical Exam-General Problems Physical Exam Vital Signs Vital Sign - Last 12Hours 12/21/16 12:18 Temp 97.2 Pulse 85 Resp 18 B/P (MAP) 134/80 Pulse Ox 100 O2 Delivery Nasal Cannula O2 Flow Rate 3.00 Capillary Refill : Clinical Quality Measures DVT/VTE Risk/Contraindication: Risk Factor Score Per Nursin RFS Level Per Nursing on Admit: 4+=Very High Contraindications-Pharm: Other *list below* Contraindications-Mechi: Other *list below* Other: PT HAS SEVERE BRUISING DUE TO VASCULITIS, COMPRESSION SOCKS OR SCD'S WOULD CAUSE INCREASE INJURY TO TISSUE, LOVENOX WOULD CAUSE INCREASE BRUISING/INJURY TO LEGS CAUSING SKIN BREAKDOWN KATIUSKA AGUDELO MD Dec 23, 2016 09:26
--- NOTE | 2016-12-23 09:42 | Speech Therapy Daily Note ---
Speech Daily Progress Note Subjective Date Seen by Provider: Dec 23, 2016 Time Seen by Provider: 09:05 The patient was seated upright in a chair upon entrance. The patient greeted the clinician upon entrance and was agreeable to participation in the cognitive treatment session. The patient remained pleasant and cooperative throughout therapy. Objective - The patient was able to recall physical therapy events and tasks of the morning, as well as, recommendations recently provided by the patient. - Internal Memory Strategies: Internal memory strategies were discussed, demonstrated, and reviewed on this date. Per patient, she frequently uses internal memory strategies, such as association and grouping, for trips to grocery store and to-do lists. Functional Memory Tasks (Three to Four Elements): The patient was read specific storied and asked questions regarding the information immediately following. The patient demonstrated mild difficulty with this task, frequently not recalling the first item of the list. The patient's accuracy was 70% with this task with mild clinician cueing for repetition. Assessment Assessment Current Status: Good Progress Treatment Plan Continue Plan of Care Communication Comprehension: 5 Expression: 5 Social Cognition Social Interaction: 6 Problem Solvin Memory: 4 Speech Short Term Goals Short Term Goals Short Term Goals 1. The patient will demonstrate and recall three functional memory strategies for use at home, independently. 2. The patient will recall three to five single items with a functional memory strategy with 80% accuracy and mild clinician cueing. 3. The patient will demonstrate 90% accuracy with safety problem solving. Time Frame-STG: One Week Speech Wreath Inspector Goals Wreath Inspector Goals 1. The patient will demonstrate improved cognitive skills (memory) for increased safety and function with ADL's in the least restrictive setting. Time Frame: Two Weeks Comprehension: 5 Expression: 6 Social Interaction: 6 Problem Solvin Memory: 5 Speech-Plan Treatment Plan Speech Therapy Treatment Plan: Continue Plan of Care Continue skilled speech pathology to target functional memory strategies for use at home. Treatment Duration: Jan 04, 2017 # of days/week Five. Visits Per Week: Five. Minutes/Day (M-F): 30 Rehab Potential: Good Safety Risks/Education Teaching Recipient: Patient Teaching Methods: Demonstration, Handout, Discussion Response to Teaching: Verbalize Understanding, Return Demonstration Education Topics Provided: Internal Memory Strategies Time Speech Therapy Time In: 09:05 Speech Therapy Time Out: 09:35 Total Billed Time: 30 Billed Treatment Time DIANE Medeiros [facility] Dec 23, 2016 09:42
--- NOTE | 2016-12-23 10:02 | Physical Therapy Daily Note ---
PT Daily Note-Current Subjective Pt. states her pain is much better today and she feels more like working. is present and shares that pts anxiety is better today than yesterday but is a long standing problem. Pt. cries and states repeatedly that she wants to go home. Pain Numeric Pain Scale: 0-No Pain Appearance breathing is deep and heavy. closes eyes and appears to be having anxiety Mental Status Patient Orientation: Person, Confused Transfers Functional [place] Measure 0=Not Assessed/NA 4=Minimal Assistance 1=Total Assistance 5=Supervision or Setup 2=Maximal Assistance 6=Modified [place] 3=Moderate Assistance 7=Complete IndependenceIRFPAI Quality Coding Scale 6 Independent with activity with or without an assistive device 5 Patient requires set up or clean up by helper. Patient completes activity by themselves 4 Supervision or touching assist (CGA). [place] provide cues , steadying assist 3 The helper provides less than half the effort to complete the activity 2 The helper provides more than half the effort to complete the activity 1 Dependent. The helper does all the effort to complete an activity 7 Patient refused to complete or attempt activity 9 The patient did not perform the activity before the current illness or injury 88 Not attempted due to Medical conditions or safety concerns Transfers (B, C, W/C) (FIM): 5 Scootin Rollin Supine to/from Sit: 5 Sit to/from Stand: 5 Weight Bearing Weight Bearing Restriction: Weight Bearing/Tolerated Location Restriction: L LE Gait Training Does the Patient Walk?: Yes Gait (FIM): 3 Distance (FIM): 3=150 ft (,150,75x2) Gait Level of Assist: 4 Gait Persons Needed: 1 Gait Assistive Device: FWW slow, eyes fixed on floor. Exercises Supine Ex: Ankle pumps, Quad Set, Rolling, Glut sets, Heel Slides, Short Arc Quads, Scooting, Straight leg raise, Hip abd/add Supine Reps: 15 Seated Therapy Exercises: Ankle pumps, Sit to stand, Long arc quads Seated Reps: 12 Assessment Current Status: Good Progress anxiety prohibits progress PT Short Term Goals Short Term Goals Time Frame: Dec 28, 2016 Gait (FIM): 5 PT Airline Hostess Goals Fpc Goals PT Airline Hostess Goals Time Frame: Jan 04, 2017 Transfers (B,C,W/C) (FIM): 7 Sit to Lying (QC): 6 Lying-Sitting on Side/Bed(QC): 6 Sit to Stand (QC): 6 Rollin Roll Left to Right (QC): 6 Chair/Ehd-bt-Jaqdo Xfer(QC): 6 Car Transfer (QC): 6 Does the Patient Walk: Yes Gait (FIM): 6 Gait distance (FIM): 3=150 ft Walk 10 feet (QC): 6 Walk 10ft-Uneven Surface(QC): 6 Walk 50ft with 2 Turns (QC): 6 Walk 150 ft (QC): 6 Gait Level of Assist: 6 Gait Assistive Device: FWW Does the Pt use WC or Scooter?: No Stairs (FIM): 5 # of Steps: 8 1 Step (curb) (QC): 5 4 Steps (QC): 5 12 Steps (QC): 88 Picking up an Object (QC): 5 PT Plan Treatment/Plan Treatment Plan: Continue Plan of Care Treatment Plan: Bed Mobility, Education, Functional Activity Shane, Functional Strength, Group Therapy, Gait, Safety, Therapeutic Exercise, Transfers Treatment Duration: Jan 04, 2017 Visits Per Week: 12 Safety Risks/Education Patient Education: Gait Training, Transfer Techniques, Correct Positioning, Safety Issues Teaching Recipient: Patient Teaching Methods: Demonstration, Discussion Response to Teaching: Verbalize Understanding, Return Demonstration, Reinforcement Needed Time/GCodes Time In: 900 Time Out: 1000 Total Billed Treatment Time: 60 Total Billed Treatment 1,EX25m,GT15m,FA20m G Codes Necessary: JULIAN Deleon AIR VALUE TESTER Dec 23, 2016 10:02
[2016-12-23] MEDS: RT-ALBUTEROL/IPRATROPIUM 3 ML (DUONEB) VIAL IH SCH ×2 (10:22→19:19)
[2016-12-23] MEDS: HYDROcodone/APAP 10 MG/325 MG (LORTAB) TAB PO PRN ×2 (11:15→21:13)
[2016-12-23] MEDS: methylPREDNISolone 125 MG (Solu-MEDROL) VIAL IV SCH ×2 (11:16→17:08)
--- NOTE | 2016-12-23 12:49 | Occupational Ther Daily Note ---
OT Current Status-Daily Note Subjective "I would love to shower." Appearance Pt. agrees to shower. Nursing requests for OT to keep bandages on leg dry. Mental Status/Objective Patient Orientation: Person, Place, Time, Situation Functional [place] Measure 0=Not Assessed/NA 4=Minimal Assistance 1=Total Assistance 5=Supervision or Setup 2=Maximal Assistance 6=Modified [place] 3=Moderate Assistance 7=Complete [place] Attachments: IV ADL-Treatment Functional [place] Measure 0=Not Assessed/NA 4=Minimal Assistance 1=Total Assistance 5=Supervision or Setup 2=Maximal Assistance 6=Modified [place] 3=Moderate Assistance 7=Complete IndependenceIRFPAI Quality Coding Scale 6 Independent with activity with or without an assistive device 5 Patient requires set up or clean up by helper. Patient completes activity by themselves 4 Supervision or touching assist (CGA). [place] provide cues , steadying assist 3 The helper provides less than half the effort to complete the activity 2 The helper provides more than half the effort to complete the activity 1 Dependent. The helper does all the effort to complete an activity 7 Patient refused to complete or attempt activity 9 The patient did not perform the activity before the current illness or injury 88 Not attempted due to Medical conditions or safety concerns Grooming (FIM): 5 (Pt. able to brush teeth and hair at sink with set up/SBA.) Oral Hygiene (QC): 4 Bathing (FIM): 5 (SBA in shower.) Shower/Bathe Self (QC): 4 Upper Body (FIM): 5 (Pt. able to retrieve items out of closet and get them on with SBA using 4 wheeled walker.) Upper Body Dressing (QC): 4 Lower Body Dressing (FIM): 5 Lower Body Dressing (QC): 4 On/Off Footwear (QC): 5 Transfers (B, C, W/C) (FIM): 5 (SBA with walker. Pt. likely to be Mod I.) Shower Transfer(FIM): 5 After shower and dressing in room, pt. is able to ambulate to therapy gym. Completed 10 minutes on armbike with 3 L 02 on. Tolerated this well. Worked on UE strengthening and overall endurance for pt. to return home independently. Ambulated back to room. All needs met in room. Education OT Patient Education: Modified ADL techniques, Progress toward Goal/Update tx plan, Purpose of tx/functional activities, Reviewed precautions, Rehab process, Transfer techniques Teaching Recipient: Patient Teaching Methods: Demonstration, Discussion Response to Teaching: Verbalize Understanding, Return Demonstration OT Short Term Goals Short Term Goals Time Frame: Dec 28, 2016 Toileting(FIM): 5 Toilet/Commode Transfer(FIM): 5 1=Demonstrate adherence to instructed precautions during ADL tasks. 2=Patient will verbalize/demonstrate understanding of assistive devices/ modifications for ADL. 3=Patient will improve strength/tolerance for activity to enable patient to perform ADL's. OT Penitentiary Goals Job Press Operator Goals Time Frame: Jan 07, 2017 Eating (FIM): 6 Eating (QC): 6 Groomin Oral Hygiene (QC): 6 Bathing(FIM): 6 Shower/Bathe Self (QC): 6 Upper Body Dressing(FIM): 6 Upper Body Dressing (QC): 6 Lower Body Dressing(FIM): 6 Lower Body Dressing (QC): 6 On/Off Footwear (QC): 6 Toileting(FIM): 6 Toileting Hygiene (QC): 6 Toilet/Commode Transfer(FIM): 6 Toilet/Commode Transfer (QC): 6 Shower Transfer(FIM): 6 Comprehension(FIM): 5 Expression (FIM): 6 Social Interaction(FIM): 6 Problem Solving(FIM): 5 Memory(FIM): 5 Additional Goals: 2-Verbalize Understanding, 3-ImproveStrength/Shane 1=Demonstrate adherence to instructed precautions during ADL tasks. 2=Patient will verbalize/demonstrate understanding of assistive devices/ modifications for ADL. 3=Patient will improve strength/tolerance for activity to enable patient to perform ADL's. OT Education/Plan Problem List/Assessment Assessment: Decreased Activ Tolerance, Impaired I ADL's Pt would benefit from skilled OT to increase her independence in basic self care to allow her to safely return home to live with her family and decrease caregiver burden Discharge Recommendations Plan/Recommendations: Continue POC Therapy D/C Recommendations: Home w/ Family Support Treatment Plan/Plan of Care Treatment,Training & Education: Yes Patient would benefit from OT for education, treatment and training to promote independence in ADL's, mobility, safety and/or upper extremity function for ADL' s. Plan of Care: ADL Retraining, Functional Mobility, Group Exercise/Act as Ind ( education, exercise, funct activities, activity tolerance, memory), UE Funct Exercise/Act, UE Neuromus Re-Ed/Coord Treatment Duration: Jan 07, 2017 Visits Per Week: 10-11 Minutes/Day (M-F): 75-90 Minutes/Day (Sat/Celaya): PRN Agreement: Yes Rehab Potential: Good Time/GCodes Start Time: 10:00 Stop Time: 11:00 Total Time Billed (hr/min): 60 Billed Treatment Time 1, ADL x 45minutes, EX x 15minutes CASS MURRIETA OT Dec 23, 2016 12:49
--- NOTE | 2016-12-23 13:58 | Physical Therapy Daily Note ---
PT Daily Note-Current Subjective Pt. states she does not use AD at home. Uses furniture to walk about her home but realizes she will need to use a walker of some kind now and is debating whether that should be the 4WW or the FWW. Pain Numeric Pain Scale: 4 Location: Right Location Body Site: Knee Pain Description: Ache Mental Status Patient Orientation: Normal For Age Attachments: Oxygen Transfers Functional [place] Measure 0=Not Assessed/NA 4=Minimal Assistance 1=Total Assistance 5=Supervision or Setup 2=Maximal Assistance 6=Modified [place] 3=Moderate Assistance 7=Complete IndependenceIRFPAI Quality Coding Scale 6 Independent with activity with or without an assistive device 5 Patient requires set up or clean up by helper. Patient completes activity by themselves 4 Supervision or touching assist (CGA). [place] provide cues , steadying assist 3 The helper provides less than half the effort to complete the activity 2 The helper provides more than half the effort to complete the activity 1 Dependent. The helper does all the effort to complete an activity 7 Patient refused to complete or attempt activity 9 The patient did not perform the activity before the current illness or injury 88 Not attempted due to Medical conditions or safety concerns pt. TRFd out of bed and sit to stand all SBA Gait Training Gait Assistive Device: Walker 4 Wheeled focused this PM on gait with extended O2 tubing. this is different for pt. as she never used the AD at home. pt. first few tries winding O2 tubing around her walker wheels etc, but quickly understood the safety concept after explained and practiced x2 Exercises Seated Therapy Exercises: Ankle pumps, Long arc quads, Hip flexion Seated Reps: 10 Assessment Current Status: Good Progress PT Short Term Goals Short Term Goals Time Frame: Dec 28, 2016 Gait (FIM): 5 PT Red Leader Goals Red Leader Goals PT Half-Way Goals Time Frame: Jan 04, 2017 Transfers (B,C,W/C) (FIM): 7 Sit to Lying (QC): 6 Lying-Sitting on Side/Bed(QC): 6 Sit to Stand (QC): 6 Rollin Roll Left to Right (QC): 6 Chair/Vwj-ky-Ruiyh Xfer(QC): 6 Car Transfer (QC): 6 Does the Patient Walk: Yes Gait (FIM): 6 Gait distance (FIM): 3=150 ft Walk 10 feet (QC): 6 Walk 10ft-Uneven Surface(QC): 6 Walk 50ft with 2 Turns (QC): 6 Walk 150 ft (QC): 6 Gait Level of Assist: 6 Gait Assistive Device: FWW Does the Pt use WC or Scooter?: No Stairs (FIM): 5 # of Steps: 8 1 Step (curb) (QC): 5 4 Steps (QC): 5 12 Steps (QC): 88 Picking up an Object (QC): 5 PT Plan Treatment/Plan Treatment Plan: Continue Plan of Care Treatment Plan: Bed Mobility, Education, Functional Activity Shane, Functional Strength, Group Therapy, Gait, Safety, Therapeutic Exercise, Transfers Treatment Duration: Jan 04, 2017 Visits Per Week: 12 Safety Risks/Education Patient Education: Gait Training, Transfer Techniques, Correct Positioning, Safety Issues Teaching Recipient: Patient Teaching Methods: Demonstration, Discussion Response to Teaching: Verbalize Understanding, Return Demonstration, Reinforcement Needed safety using extended O2 during gait Time/GCodes Time In: 1330 Time Out: 1400 Total Billed Treatment Time: 30 Total Billed Treatment 1,GT30m G Codes Necessary: JULIAN Deleon TOP CAGER Dec 23, 2016 13:58
--- NOTE | 2016-12-23 14:31 | Occupational Ther Daily Note ---
OT Current Status-Daily Note Subjective Pt. is up in chair. Agrees to work with OT. Appearance Pt. ambulates with walker with Mod I to therapy gym. Mental Status/Objective Patient Orientation: Person, Place, Time, Situation Functional [place] Measure 0=Not Assessed/NA 4=Minimal Assistance 1=Total Assistance 5=Supervision or Setup 2=Maximal Assistance 6=Modified Loving 3=Moderate Assistance 7=Complete Loving ADL-Treatment Functional [place] Measure 0=Not Assessed/NA 4=Minimal Assistance 1=Total Assistance 5=Supervision or Setup 2=Maximal Assistance 6=Modified [place] 3=Moderate Assistance 7=Complete IndependenceIRFPAI Quality Coding Scale 6 Independent with activity with or without an assistive device 5 Patient requires set up or clean up by helper. Patient completes activity by themselves 4 Supervision or touching assist (CGA). [place] provide cues , steadying assist 3 The helper provides less than half the effort to complete the activity 2 The helper provides more than half the effort to complete the activity 1 Dependent. The helper does all the effort to complete an activity 7 Patient refused to complete or attempt activity 9 The patient did not perform the activity before the current illness or injury 88 Not attempted due to Medical conditions or safety concerns Transfers (B, C, W/C) (FIM): 6 (Mod I for sit-stand, and ambulation to therapy gym. Mod I into/out of chair in therapy gym.) Other Treatment Pt. dons 1 lb. wrist weights and completes bilateral UE strengthening tasks with therapy pegs. Pt. puts pegs into/out of peg board. Encouraged to alternate hands with weights on, as this will simulate arm exercise. However, pt. states that she has to use both hands to put in each peg, as "it is too hard." Pt. reports feeling week in hands and skin is sensitive to touch. Pt. does this with increased time needed. Ambulates back to room with Mod I to return to chair. All needs met in room. Education OT Patient Education: Correct positioning, Exercise program, Modified ADL techniques, Progress toward Goal/Update tx plan, Purpose of tx/functional activities, Reviewed precautions, Rehab process, Transfer techniques Teaching Recipient: Patient Teaching Methods: Demonstration, Discussion Response to Teaching: Verbalize Understanding, Return Demonstration OT Short Term Goals Short Term Goals Time Frame: Dec 28, 2016 Toileting(FIM): 5 Toilet/Commode Transfer(FIM): 5 1=Demonstrate adherence to instructed precautions during ADL tasks. 2=Patient will verbalize/demonstrate understanding of assistive devices/ modifications for ADL. 3=Patient will improve strength/tolerance for activity to enable patient to perform ADL's. OT Floor Finisher Helper Goals Mcfp Goals Time Frame: Jan 07, 2017 Eating (FIM): 6 Eating (QC): 6 Groomin Oral Hygiene (QC): 6 Bathing(FIM): 6 Upper Body Dressing(FIM): 6 Lower Body Dressing(FIM): 6 Toileting(FIM): 6 Toileting Hygiene (QC): 6 Toilet/Commode Transfer(FIM): 6 Toilet/Commode Transfer (QC): 6 Shower Transfer(FIM): 6 Comprehension(FIM): 5 Expression (FIM): 6 Social Interaction(FIM): 6 Problem Solving(FIM): 5 Memory(FIM): 5 Additional Goals: 2-Verbalize Understanding, 3-ImproveStrength/Shane 1=Demonstrate adherence to instructed precautions during ADL tasks. 2=Patient will verbalize/demonstrate understanding of assistive devices/ modifications for ADL. 3=Patient will improve strength/tolerance for activity to enable patient to perform ADL's. OT Education/Plan Problem List/Assessment Assessment: Decreased Activ Tolerance Pt would benefit from skilled OT to increase her independence in basic self care to allow her to safely return home to live with her family and decrease caregiver burden Discharge Recommendations Plan/Recommendations: Continue POC Therapy D/C Recommendations: Home w/ Family Support Treatment Plan/Plan of Care Treatment,Training & Education: Yes Patient would benefit from OT for education, treatment and training to promote independence in ADL's, mobility, safety and/or upper extremity function for ADL' s. Plan of Care: ADL Retraining, Functional Mobility, Group Exercise/Act as Ind ( education, exercise, funct activities, activity tolerance, memory), UE Funct Exercise/Act, UE Neuromus Re-Ed/Coord Treatment Duration: Jan 07, 2017 Visits Per Week: 10-11 Minutes/Day (M-F): 75-90 Minutes/Day (Sat/Celaya): PRN Agreement: Yes Rehab Potential: Good Time/GCodes Start Time: 13:00 Stop Time: 13:30 Total Time Billed (hr/min): 30 Billed Treatment Time 1, EX x 2 CASS MURRIETA OT Dec 23, 2016 14:31
--- NOTE | 2016-12-23 15:00 | Individualized Plan of Care ---
Individualized Plan of Care Rehab Nursing IPOC Order Admission Date Dec 21, 2016 at 10:25 Current Orders Orders Patient Visit (12/22/16 ) Cbc With Automated Diff (12/23/16 06:00) Comprehensive Metabolic Panel (12/23/16 06:00) Manual Differential (12/23/16 06:20) Methylprednisolone Sod Succ (Solu-Medrol (12/23/16 12:00) Patient Visit (12/23/16 ) Treat. Speech/Lang/Voice (12/23/16 ) Furosemide Tablet (Lasix Tablet) (12/24/16 09:00) Rehab Nursing Orders: Diseage Management, Edu in Press Rel Techn, Hydration Management, Nutrition Management, Pain Management Toilet every (bladder): (hrs): 2 hours while awke prn PT IPOC Problem List: Activity Tolerance, Functional Strength, Safety, Balance, Gait, Transfer, Bed Mobility Treatment Plan: Continue Plan of Care Bed Mobility, Education, Functional Activity Shane, Functional Strength, Group Therapy, Gait, Safety, Therapeutic Exercise, Transfers Treatment Duration: Jan 04, 2017 Visits Per Week: 12 Minutes/Day (M-F): 60-90 Minutes/Day (Sat/Celaya): prn OT IPOC Problems: Decreased Activ Tolerance OT Problems Pt would benefit from skilled OT to increase her independence in basic self care to allow her to safely return home to live with her family and decrease caregiver burden Plan of Care: ADL Retraining, Functional Mobility, Group Exercise/Act as Ind ( education, exercise, funct activities, activity tolerance, memory), UE Funct Exercise/Act, UE Neuromus Re-Ed/Coord Treatment Duration: Jan 07, 2017 Visits Per Week: 10-11 Minutes/Day (M-F): 75-90 Minutes/Day (Sat/Celaya): PRN ST IPOC Speech Therapy Treatment Plan: Continue Plan of Care Treatment Duration: Jan 04, 2017 Visits Per Week: Five. 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 Medical Prognosis: good Anticipated Length of Stay: 01-07-17 Rehab Goals Modified Independent for adls and mobility skills with decreased pain and less [place] and good wound healing Anticipated discharge destinat: Home with spouse and [facility] JEMAL ROMEO MD Dec 23, 2016 15:00
--- NOTE | 2016-12-23 16:19 | Cardiology Progress Note ---
Subjective Date Seen by Provider: Dec 23, 2016 Time Seen by Provider: 16:18 Subjective/Events-last exam patient is laying down in bed, feeling better today. Denied any chest pain, breathing is better. Objective-Cardiology Exam Last Set of Vital Signs Vital Signs 12/23/16 12/23/16 06:23 10:22 Temp 99.1 Pulse 94 Resp 18 B/P (MAP) 152/64 Pulse Ox 95 O2 Delivery Nasal Cannula O2 Flow Rate 3.00 Capillary Refill : I&O Intake and Output 12/23/16 00:00 Intake Total 2150 ml Balance 2150 ml Intake Oral 2150 ml # Voids 7 General: Alert, Oriented X3, Cooperative HEENT: Atraumatic, PERRLA Neck: Supple, No JVD, No Thyromegaly Lungs: Clear to Auscultation, Normal Air Movement Heart: Regular Rate, Normal S1, Normal S2, No Murmurs Abdomen: Normal Bowel Sounds, Soft, No Tenderness, No Hepatosplenomegaly, No Masses Extremities: No Clubbing, No Cyanosis, No Edema, Normal Pulses, No Tenderness/ Swelling Skin: No Rashes, No Breakdown, No Significant Lesion, Other (Skin ulcers left leg followed by Dr jones lacks full ext rt knee Strength 4/5 all 4 limbs sensation grossly intact) Neuro: Normal Gait, Normal Speech, Strength at 5/5 X4 Ext, Normal Tone, Sensation Intact Psych/Mental Status: Mental Status NL, Mood NL Results Lab Laboratory Tests 12/23/16 06:20 A/P-Cardiology Admission Diagnosis Hypertensive urgency Adrenal crisis CAD dyspnea Assessment/Plan Status post hypertensive emergency, continue on current medication monitor blood pressure. Adrenal crisis, on Solu-Medrol IV, improved, managed by primary care physician Change in mental status, improved, continue to monitor Acute shortness of breath, acute respiratory failure, history of severe COPD requiring oxygen, reporting improvement, continue current treatment and monitor. Echocardiogram showed normal left ventricular size with ejection fraction 50-55 percent, mild MR, mild TR, PA pressure 30 mmHg. Continue to monitor. History of congestive heart failure with left ventricular systolic dysfunction, ejection fraction is 50-55 percent per echocardiogram, no signs of congestive heart failure at this time. Chest pain nonspecific etiology, mainly tightness in the chest with increasing breathing efforts. Continue to monitor. Coronary artery disease history of cardiac catheterization done in 2012 showing calcified coronary system with moderate disease, 40 percent stenosis in the mid LAD, 30-40 percent stenosis in the midcircumflex artery, nondominant right coronary artery with 50 percent stenosis. 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 Jones, has been restarted on steroids. History of T-cell leukemia, lymphoma diagnosed in 2009 followed and managed by Dr. 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 History of mild bilateral carotid stenosis, last ultrasound was done in March 2013. Continue to monitor History of syncope in the remote past. No further syncopal episodes were reported, had mild dizziness Diabetes mellitus, Followed and managed by Dr. Peace. Continue to monitor. Osteoarthritis Gastroesophageal reflux disease. Hypothyroidism, maintained on Levoxyl, managed by Dr. West. Fibromyalgia. Status post herniated disc surgery, reporting improvement in her back pain and lower extremity numbness and pain. History of peripheral neuropathy Clinical Quality Measures DVT/VTE Risk/Contraindication: Risk Factor Score Per Nursin RFS Level Per Nursing on Admit: 4+=Very High Contraindications-Pharm: Other *list below* Contraindications-Mechi: Other *list below* Other: PT HAS SEVERE BRUISING DUE TO VASCULITIS, COMPRESSION SOCKS OR SCD'S WOULD CAUSE INCREASE INJURY TO TISSUE, LOVENOX WOULD CAUSE INCREASE BRUISING/INJURY TO LEGS CAUSING SKIN BREAKDOWN BRAXTON LAUREN MD Dec 23, 2016 16:19
[2016-12-23 17:14] VITALS: BP 135/71
[2016-12-23] MEDS: rOPINIRole 0.25 MG (REQUIP) TAB PO SCH (20:12)
[2016-12-23] MEDS: MONTELUKAST 10 MG (SINGULAIR) TAB PO SCH (20:12)
[2016-12-23] MEDS: PANTOPRAZOLE 40 MG (PROTONIX) TAB PO SCH (20:13)
[2016-12-23] MEDS: GABAPENTIN 300 MG (NEURONTIN) CAP PO SCH (20:13)
[2016-12-23] MEDS: FAMOTIDINE 20 MG (PEPCID) TABLET PO PRN (20:14)
[2016-12-23] MEDS: MAGNESIUM OXIDE (MAG-OX)400 MG TAB PO SCH (20:14)
[2016-12-23] MEDS: LATANOPROST 0.005% (XALATAN) OPHTH SOLN 2.5 ML OS SCH (20:16)
[2016-12-23] MEDS: clonazePAM 0.5 MG (KlonoPIN) TAB PO PRN (21:12)
[2016-12-24] MEDS: methylPREDNISolone 125 MG (Solu-MEDROL) VIAL IV SCH ×4 (00:44→17:46)
[2016-12-24] MEDS: MULTIVIT W/MINERALS TAB (THERAGRAN M) PO SCH (06:06)
[2016-12-24] MEDS: CATHETER FLUSH 10 ML SYR IV PRN (06:06)
[2016-12-24] MEDS: SUCRALFATE 1 GM (CARAFATE) TAB PO SCH ×4 (06:06→20:57)
[2016-12-24] MEDS: CALCIUM CARB + VIT D 600 MG (CALCARB + D) TAB PO SCH (06:06)
[2016-12-24] MEDS: metFORMIN 500 MG (GLUCOPHAGE) TAB PO SCH ×2 (06:06→17:46)
[2016-12-24] MEDS: LEVOTHYROXINE 88 MCG (LEVOTHORID) TAB PO SCH (06:06)
[2016-12-24 06:09] VITALS: BP 125/71
[2016-12-24] MEDS: RT-ALBUTEROL SULF 2.5 MG/3 ML PRE-MIX VIAL IH SCH ×2 (06:27→15:09)
[2016-12-24] MEDS: RT-ADVAIR HFA 115/21 MCG PER PUFF IH SCH ×2 (06:29→19:33)
[2016-12-24] MEDS: UMECLIDINIUM BROMIDE (INCRUSE ELLIPTA) 7'S IH SCH (06:30)
--- NOTE | 2016-12-24 08:20 | PM & R (SOAP) Progress Note ---
Subjective Time Seen by Provider: 07:20 Subjective/Events-last exam Patient was seen in her room this AM Progressing well with therapies Patient CGA for transfers Pain control adequate Objective Exam Last Set of Vital Signs Vital Signs Date Time Temp Pulse Resp B/P (MAP) Pulse Ox O2 Delivery O2 Flow Rate FiO2 12/24/16 06:27 98 Nasal Cannula 3.00 12/24/16 06:09 97.4 92 18 125/71 Capillary Refill : I&O Intake and Output 12/24/16 00:00 Intake Total 1942 ml Balance 1942 ml Intake Oral 1900 ml IV Total 42 ml # Voids 6 General: Alert, Oriented X3, Cooperative HEENT: Atraumatic, PERRLA Neck: Supple, No JVD, No Thyromegaly Lungs: Clear to Auscultation, Normal Air Movement Heart: Regular Rate, Normal S1, Normal S2, No Murmurs Abdomen: Normal Bowel Sounds, Soft, No Tenderness, No Hepatosplenomegaly, No Masses Extremities: No Clubbing, No Cyanosis, No Edema, Normal Pulses, No Tenderness/ Swelling Skin: No Rashes, No Breakdown, No Significant Lesion, Other (Skin ulcers left leg followed by Dr jones lacks full ext rt knee Strength 4/5 all 4 limbs sensation grossly intact) Neuro: Normal Gait, Normal Speech, Strength at 5/5 X4 Ext, Normal Tone, Sensation Intact Psych/Mental Status: Mental Status NL, Mood NL Results Lab Laboratory Tests 12/23/16 06:20: White Blood Count 18.0H, Red Blood Count 3.84L, Hemoglobin 12.0, Hematocrit 37, Mean Corpuscular Volume 95, Mean Corpuscular Hemoglobin 31, Mean Corpuscular Hemoglobin Concent 33, Red Cell Distribution Width 14.9H, Platelet Count 435H, Mean Platelet Volume 8.5, Neutrophils (%) (Auto) 94H, Lymphocytes (%) (Auto) 2L , Monocytes (%) (Auto) 3, Eosinophils (%) (Auto) 0, Basophils (%) (Auto) 0, Neutrophils # (Auto) 17.0H, Lymphocytes # (Auto) 0.4L, Monocytes # (Auto) 0.6, Eosinophils # (Auto) 0.0, Basophils # (Auto) 0.0, Neutrophils % (Manual) 95, Lymphocytes % (Manual) 1, Monocytes % (Manual) 4, Anisocytosis SLIGHT, Blood Morphology Comment , Sodium Level 136, Potassium Level 4.2, Chloride Level 93L, Carbon Dioxide Level 25, Anion Gap 18H, Blood Urea Nitrogen 39H, Creatinine 0.98 , Estimat Glomerular Filtration Rate 56, BUN/Creatinine Ratio 40, Glucose Level 132H, Calcium Level 8.9, Total Bilirubin 0.6, Aspartate Amino Transf (AST/SGOT) 25, Alanine Aminotransferase (ALT/SGPT) 52, Alkaline Phosphatase 75, Total Protein 6.9, Albumin 3.9 Assessment/Plan Assessment vasculitis induced peripheral neuropathy Vascular ulcers left leg under the care of DR Jones Chronic steroid usage Adrenal crisis now back on steroids 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 Overall doing well JEMAL ROMEO MD Dec 24, 2016 08:20
[2016-12-24] MEDS: DULoxetine 30 MG (CYMBALTA) CAP PO SCH (08:35)
[2016-12-24] MEDS: OMEGA 3 (FISH OIL) 1000 MG CAP PO SCH (08:35)
[2016-12-24] MEDS: meTOprolol TARTRATE 50 MG (LOPRESSOR) TAB PO SCH ×2 (08:35→20:58)
[2016-12-24] MEDS: ENALAPRIL 2.5 MG (VASOTEC) TAB PO SCH (08:35)
[2016-12-24] MEDS: GABAPENTIN 600 MG (NEURONTIN) TAB PO SCH (08:35)
[2016-12-24] MEDS: ACYCLOVIR 400 MG TABLET (ZOVIRAX) PO SCH ×2 (08:35→20:57)
[2016-12-24] MEDS: FUROSEMIDE 40 MG (LASIX) TAB PO SCH (08:35)
[2016-12-24] MEDS: amLODIPine 10 MG (NORVASC) TAB PO SCH (08:35)
[2016-12-24] MEDS: KCL 10 MEQ TAB (MICRO K) PO SCH ×2 (08:35→20:57)
[2016-12-24] MEDS: SENNA W/DOCUSATE (SENOKOT S) TABLET PO SCH (08:35)
[2016-12-24] MEDS: DICLOFENAC 1% GEL 100 GM (VOLTAREN) TUBE TOP SCH ×4 (08:36→21:00)
[2016-12-24] MEDS: morphine ER 15 MG (MS CONTIN) TAB PO SCH ×2 (08:36→20:58)
--- NOTE | 2016-12-24 09:05 | Physical Therapy Daily Note ---
PT Daily Note-Current Subjective Pt. agrees to rx. Pain Numeric Pain Scale: 4 Location: Left Location Body Site: Ankle Pain Description: Stabbing Comment: pt. hit left ankle with right foot and had an exacerbation of pain Mental Status Patient Orientation: Normal For Age Attachments: Oxygen (3L) Transfers Functional [place] Measure 0=Not Assessed/NA 4=Minimal Assistance 1=Total Assistance 5=Supervision or Setup 2=Maximal Assistance 6=Modified [place] 3=Moderate Assistance 7=Complete IndependenceIRFPAI Quality Coding Scale 6 Independent with activity with or without an assistive device 5 Patient requires set up or clean up by helper. Patient completes activity by themselves 4 Supervision or touching assist (CGA). [place] provide cues , steadying assist 3 The helper provides less than half the effort to complete the activity 2 The helper provides more than half the effort to complete the activity 1 Dependent. The helper does all the effort to complete an activity 7 Patient refused to complete or attempt activity 9 The patient did not perform the activity before the current illness or injury 88 Not attempted due to Medical conditions or safety concerns Transfers (B, C, W/C) (FIM): 5 Scootin Rollin Supine to/from Sit: 6 Sit to/from Stand: 5 Gait Training Does the Patient Walk?: Yes Gait (FIM): 5 Distance (FIM): 3=150 ft (x3) Gait Level of Assist: 5 Gait Persons Needed: 1 Gait Assistive Device: FWW assist for O2 and education RE: safety and broader FABIOLA, pt. crosses over Stair Training Stair Training: Handrails/: 2 handrails Stairs (FIM): 2 #of Steps: 4 Stairs: Pattern: Reciprocal Level of Assist: 4 Exercises Supine Ex: Bridging, Rolling, Glut sets, Short Arc Quads, Straight leg raise, Hip abd/add Supine Reps: 15 Standing: Hip Abduction, Mini squats, Side steps Standing Reps: 12 core for transverse activation incorporating hooklying gentle august Assessment Current Status: Good Progress still practicing using extended O2 while walking PT Short Term Goals Short Term Goals Time Frame: Dec 28, 2016 Gait (FIM): 5 PT Penitentiary Goals Cloth Winder Goals PT Penitentiary Goals Time Frame: Jan 04, 2017 Transfers (B,C,W/C) (FIM): 7 Sit to Lying (QC): 6 Lying-Sitting on Side/Bed(QC): 6 Sit to Stand (QC): 6 Rollin Roll Left to Right (QC): 6 Chair/Vgb-in-Qoned Xfer(QC): 6 Car Transfer (QC): 6 Does the Patient Walk: Yes Gait (FIM): 6 Gait distance (FIM): 3=150 ft Walk 10 feet (QC): 6 Walk 10ft-Uneven Surface(QC): 6 Walk 50ft with 2 Turns (QC): 6 Walk 150 ft (QC): 6 Gait Level of Assist: 6 Gait Assistive Device: FWW Does the Pt use WC or Scooter?: No Stairs (FIM): 5 # of Steps: 8 1 Step (curb) (QC): 5 4 Steps (QC): 5 12 Steps (QC): 88 Picking up an Object (QC): 5 PT Plan Treatment/Plan Treatment Plan: Continue Plan of Care Treatment Plan: Bed Mobility, Education, Functional Activity Shane, Functional Strength, Group Therapy, Gait, Safety, Therapeutic Exercise, Transfers Treatment Duration: Jan 04, 2017 Visits Per Week: 12 Minutes/Day (M-F): 60-90 Minutes/Day (Sat/Celaya): prn Safety Risks/Education Patient Education: Gait Training, Transfer Techniques, Steps, Correct Positioning, Safety Issues Teaching Recipient: Patient Teaching Methods: Demonstration, Discussion Response to Teaching: Verbalize Understanding, Return Demonstration, Reinforcement Needed Time/GCodes Time In: 800 Time Out: 900 Total Billed Treatment Time: 60 Total Billed Treatment 1,FA15m,FA15m,EX30m G Codes Necessary: JULIAN Deleon SCREW MACHINE TENDER Dec 24, 2016 09:05
[2016-12-24] MEDS: RT-ALBUTEROL/IPRATROPIUM 3 ML (DUONEB) VIAL IH SCH ×2 (10:00→19:33)
[2016-12-24] MEDS ORDERED: BARIUM SUSPENSION 60% (LIQUID EZ PAQUE) 240 ML DOSE PO ONE (10:30)
[2016-12-24] MEDS ORDERED: BARIUM SUSPENSION 105% (LIQUID POLIBAR PLUS) 240 ML/DOSE PO ONE (10:30)
--- NOTE | 2016-12-24 10:39 | ST Dysphagia Evaluation ---
Speech Evaluation-General Medical Diagnosis Adrenal crisis Onset Date: Dec 15, 2016 Therapy Diagnosis Therapy Diagnosis: Oropharyngeal Swallow WFL Precautions Precautions/Isolations: Fall Prevention, Standard Precautions Referral Referring Physician: Dr. Aaron Delgado Reason for Referral: Evaluation/Treatment Clinical Bedside Swallowing Evaluation Medical History Pertinent Medical History: Arthritis, COPD, DM, HTN, Hypothroidism, Lymphoma Reviewed History: Yes Social History Home: Single Level (Two steps to enter the house from the garage.) Current Living Status: Spouse Speech PLF/Current-Dysphagia Prior Level of Function The patient reported she has been experienced a globus sensation and "stacking" in her mid-chest region upon swallowing for several weeks, however, it is progressively worsening. The patient continues to consume a regular diet with thin liquids, however, states soft consistencies do tend to clear the esophageal region best. The patient denied coughing or choking with any consistency she currently consumes. Subjective The patient was seated upright in recliner upon entrance. The patient greeted the clinician appropriately and was agreeable to participation in the bedside swallowing evaluation. The patient is currently receiving a regular diet with thin liquids. Cognitive Status Patient Orientation: Person, Place, Time, Situation Oral Motor Skills Dentition: Natural Current Food Consistancy: Regular, Thin Liquids Ability to Follow Directions: Excellent Oral Expression Ability: No Impairment Voice Voice Phonatory-Based Quality: Normal Voice Pitch: Normal Voice Loudness: Normal Face Facial Symmetry: Symmetrical Oral-Facial Assessment Oral-Facial Dentition: Normal Labial Seal Description: Normal Smile: Normal Puff Cheeks: Normal Lingual Protrusion: Normal Lingual ROM: Normal Lingual Strength: Normal Pharynx Velopharyngeal Move.: Normal Volitional Dry Swallow: Yes Dysphagia Evaluation Consistencies Presented: Regular, Thin Liquid, Pureed - No anterior phase deficits were noted throughout the evaluation. - No pharyngeal impairments were noted throughout the assessment. - No signs/symptoms of aspiration were demonstrated with multiple boluses of thin liquid (water), puree (yogurt), or solid (granola) consistencies tested. The patient's vocal quality remained clear throughout the assessment. The patient does report a "stacking" sensation which she is able to localize to the mid-esophageal region. Dietary Recommendations: Regular Liquid Recommendations: Thin Swallowing Precautions: Alternate Liquids/Solids, Decreased Bolus 1/4 Tsp, Small Bites and Sips, Sitting Upright 90 Degrees 1. Continue to crush medication and place in puree for administration. 2. Smaller, more frequent meals. 3. Apply extra sauces and gravies when able to improve dry consistencies to "slick." Dysphagia Evaluation Summary The patient demonstrated an oropharyngeal swallow function grossly within functional limits. As the patient reports of discomfort in the mid-esophageal region, the consideration of an esophagram may be appropriate to further evaluate esophageal functioning. Speech Short Term Goals Short Term Goals Short Term Goals 1. The patient will demonstrate and recall three functional memory strategies for use at home, independently. 2. The patient will recall three to five single items with a functional memory strategy with 80% accuracy and mild clinician cueing. 3. The patient will demonstrate 90% accuracy with safety problem solving. Time Frame-STG: One Week Speech Personal Counselor Goals Personal Counselor Goals 1. The patient will demonstrate improved cognitive skills (memory) for increased safety and function with ADL's in the least restrictive setting. Time Frame: Two Weeks Comprehension: 5 Expression: 6 Social Interaction: 6 Problem Solvin Memory: 5 Speech-Plan Treatment Plan Speech Therapy Treatment Plan: Discontinue ST Discontinue dysphagia services for patient. The speech pathologist will continue to provide cognitive rehabilitation. Treatment Duration: Jan 04, 2017 # of days/week Five. Visits Per Week: Five. Minutes/Day (M-F): 30 Rehab Potential: Good Safety Risks/Education Teaching Recipient: Patient Teaching Methods: Discussion Response to Teaching: Verbalize Understanding Education Topics Provided: Recommendations, Results, Swallowing Strategies Time Speech Therapy Time In: 09:00 Speech Therapy Time Out: 09:30 Total Billed Time: 30 Billed Treatment Time 1 VANNESSA OLVERA Dec 24, 2016 10:39
--- NOTE | 2016-12-24 10:47 | Diagnostic Imaging Report ---
EXAMINATION: Barium swallow double-contrast. INDICATION: Dysphagia Fluoroscopy time: 2 minutes and 14 seconds TECHNIQUE: Dental Associate image of the chest was performed. Subsequently, the patient was given gas forming granules for oral ingestion followed by thick and thin barium to drink. Swallowing through the esophagus was observed with fluoroscopy and overhead images, as well as multiple spot images in the upright and prone positions, were taken. FINDINGS: Dental Associate image of the chest demonstrate right PICC line in place and bilateral shoulder replacement. There is some gastroesophageal reflux to the upper esophagus that is seen during this exam. There is incomplete emptying of the esophagus with location of tertiary contractions noted compatible with motility dysfunction which is probably related to the patient's age. No abnormal dilatation of the esophagus. No mechanical obstruction. The esophagus is normal in caliber and contour. There is no mucosal abnormality, diverticulum or filling defect to suggest a mass. There is a small sliding hiatal hernia demonstrated. There is also laryngeal penetration seen on supine images with very minimal aspiration. This is only seen in the supine and prone position. IMPRESSION: 1. There is reflux seen to the upper esophagus noted during the exam. 2. Motility dysfunction and incomplete emptying of the esophagus with occasional tertiary contractions. 3. Small sliding hiatal hernia. 4. Minimal laryngeal penetration and aspiration seen from reflux noted only in supine or prone position. This is not seen in the upright position. Dr. Aaron Delgado is called and informed of the findings by Dr. Colon at time of dictation. Dictated by: Dictated on workstation # [id number]
[2016-12-24] MEDS: HYDROcodone/APAP 10 MG/325 MG (LORTAB) TAB PO PRN (11:09)
--- NOTE | 2016-12-24 11:38 | Occupational Ther Daily Note ---
OT Current Status-Daily Note Subjective Pt sitting in chair, agrees to treatment. Pt reports 7/10 pain in left ankle. Mental Status/Objective Functional [place] Measure 0=Not Assessed/NA 4=Minimal Assistance 1=Total Assistance 5=Supervision or Setup 2=Maximal Assistance 6=Modified [place] 3=Moderate Assistance 7=Complete [place] Attachments: Oxygen ADL-Treatment Pt requests shower this morning. Sit to stand from chair with modified independence. Gait to restroom with 4WW. Toilet transfer completed with SBA. Pt able to manage clothing and hygiene with SBA. Transfer to walk in shower with SBA. PICC line covered to prevent getting wet. Pt able to wash/dry all areas with SBA. Don pullover shirt with set up. Pt donned shorts with SBA for standing balance during pant hike. Don socks with set up. RN present to change dressing on left ankle. Pt brushed hair with set up. Gait to chair with 4WW, no LOB noted. Functional [place] Measure 0=Not Assessed/NA 4=Minimal Assistance 1=Total Assistance 5=Supervision or Setup 2=Maximal Assistance 6=Modified [place] 3=Moderate Assistance 7=Complete IndependenceIRFPAI Quality Coding Scale 6 Independent with activity with or without an assistive device 5 Patient requires set up or clean up by helper. Patient completes activity by themselves 4 Supervision or touching assist (CGA). [place] provide cues , steadying assist 3 The helper provides less than half the effort to complete the activity 2 The helper provides more than half the effort to complete the activity 1 Dependent. The helper does all the effort to complete an activity 7 Patient refused to complete or attempt activity 9 The patient did not perform the activity before the current illness or injury 88 Not attempted due to Medical conditions or safety concerns Grooming (FIM): 5 Bathing (FIM): 5 Shower/Bathe Self (QC): 4 Upper Body (FIM): 5 Upper Body Dressing (QC): 5 Lower Body Dressing (FIM): 5 Lower Body Dressing (QC): 4 Toileting (FIM): 5 Toileting Hygiene (QC): 5 Toilet/Commode Transfer (FIM): 5 Other Treatment Pt performed bilateral UE exercises to promote increased strength needed for ADLs and transfers. Pt completed biceps curls and triceps extension exercises x12 reps with red theraband. Rest breaks between exercises. Bilateral hand sail cutter exercises x20 reps with minimal resistance therapy foam. Pt transferred to bed, sit to supine with modified independence. Pt in bed with needs met after session. OT Short Term Goals Short Term Goals Time Frame: Dec 28, 2016 Toileting(FIM): 5 Toilet/Commode Transfer(FIM): 5 1=Demonstrate adherence to instructed precautions during ADL tasks. 2=Patient will verbalize/demonstrate understanding of assistive devices/ modifications for ADL. 3=Patient will improve strength/tolerance for activity to enable patient to perform ADL's. OT Commodities Manager Goals Commodities Manager Goals Time Frame: Jan 07, 2017 Eating (FIM): 6 Eating (QC): 6 Groomin Oral Hygiene (QC): 6 Bathing(FIM): 6 Shower/Bathe Self (QC): 6 Upper Body Dressing(FIM): 6 Upper Body Dressing (QC): 6 Lower Body Dressing(FIM): 6 Lower Body Dressing (QC): 6 On/Off Footwear (QC): 6 Toileting(FIM): 6 Toileting Hygiene (QC): 6 Toilet/Commode Transfer(FIM): 6 Toilet/Commode Transfer (QC): 6 Shower Transfer(FIM): 6 Comprehension(FIM): 5 Expression (FIM): 6 Social Interaction(FIM): 6 Problem Solving(FIM): 5 Memory(FIM): 5 Additional Goals: 2-Verbalize Understanding, 3-ImproveStrength/Shane 1=Demonstrate adherence to instructed precautions during ADL tasks. 2=Patient will verbalize/demonstrate understanding of assistive devices/ modifications for ADL. 3=Patient will improve strength/tolerance for activity to enable patient to perform ADL's. OT Education/Plan Problem List/Assessment Pt would benefit from skilled OT to increase her independence in basic self care to allow her to safely return home to live with her family and decrease caregiver burden Discharge Recommendations Plan/Recommendations: Continue POC Treatment Plan/Plan of Care Patient would benefit from OT for education, treatment and training to promote independence in ADL's, mobility, safety and/or upper extremity function for ADL' s. Plan of Care: ADL Retraining, Functional Mobility, Group Exercise/Act as Ind ( education, exercise, funct activities, activity tolerance, memory), UE Funct Exercise/Act, UE Neuromus Re-Ed/Coord Treatment Duration: Jan 07, 2017 Visits Per Week: 10-11 Minutes/Day (M-F): 75-90 Minutes/Day (Sat/Celaya): PRN Agreement: Yes Rehab Potential: Good Time/GCodes Start Time: 10:20 Stop Time: 11:20 Total Time Billed (hr/min): 60 Billed Treatment Time 1 visit, ADLx3(45minutes), Ex(15minutes) CORTNEY WYLIE OT Dec 24, 2016 11:38
--- NOTE | 2016-12-24 14:55 | Therapy Group Daily Note ---
Therapy Daily Group Note Patient Education Topic Other List Below (nutrition) Exercises LE Seated Exercise, UE Exercise Other/Notes Pt ambulated with SBA using FWW to OT/PT group. Group consisted of introductions (name, place, expensive purchase made), socialization, UE/LE seated exercises, nutrition education and UE coordination activity. Pt able to introduce self and answer questions appropriately. Contributed to discussions and interacted with other pt's. Was able to complete UE/LE exercises, tolerated well. UE coordination activity worked on core strengthening, eye hand coordination, dynamic balance and UE AROM/strengthening. After group, pt lying in bed with call light/phone in reach. Start Time: 13:00 Stop Time: 14:15 Total Billed Treatment Time: 75 Total Billed Treatment 1-GRP KEATON CONTEH Dec 24, 2016 14:55
[2016-12-24 18:51] VITALS: BP 118/64
[2016-12-24] MEDS: LATANOPROST 0.005% (XALATAN) OPHTH SOLN 2.5 ML OS SCH (20:55)
[2016-12-24] MEDS: MONTELUKAST 10 MG (SINGULAIR) TAB PO SCH (20:56)
[2016-12-24] MEDS: GABAPENTIN 300 MG (NEURONTIN) CAP PO SCH (20:57)
[2016-12-24] MEDS: PANTOPRAZOLE 40 MG (PROTONIX) TAB PO SCH (20:57)
[2016-12-24] MEDS: MAGNESIUM OXIDE (MAG-OX)400 MG TAB PO SCH (20:57)
[2016-12-24] MEDS: rOPINIRole 0.25 MG (REQUIP) TAB PO SCH (20:57)
[2016-12-24] MEDS: MAGIC MOUTHWASH (ADULT) PO SCH ×4 (20:59)
[2016-12-24] MEDS ORDERED: MAGIC MOUTHWASH, ADULT 155 ML BOTTLE PO SCH (21:00)
[2016-12-24] MEDS: clonazePAM 0.5 MG (KlonoPIN) TAB PO PRN (21:36)
[2016-12-25] MEDS: methylPREDNISolone 125 MG (Solu-MEDROL) VIAL IV SCH ×5 (00:21→23:37)
[2016-12-25] MEDS: HYDROcodone/APAP 10 MG/325 MG (LORTAB) TAB PO PRN ×3 (03:26→17:52)
[2016-12-25 04:15] VITALS: BP 163/80
[2016-12-25] MEDS: MULTIVIT W/MINERALS TAB (THERAGRAN M) PO SCH (06:14)
[2016-12-25] MEDS: LEVOTHYROXINE 88 MCG (LEVOTHORID) TAB PO SCH (06:14)
[2016-12-25] MEDS: CALCIUM CARB + VIT D 600 MG (CALCARB + D) TAB PO SCH (06:14)
[2016-12-25] MEDS: SUCRALFATE 1 GM (CARAFATE) TAB PO SCH ×4 (06:14→20:57)
[2016-12-25] MEDS: metFORMIN 500 MG (GLUCOPHAGE) TAB PO SCH ×2 (06:14→17:12)
[2016-12-25] MEDS: RT-ALBUTEROL SULF 2.5 MG/3 ML PRE-MIX VIAL IH SCH ×2 (06:56→15:01)
[2016-12-25] MEDS: RT-ADVAIR HFA 115/21 MCG PER PUFF IH SCH ×2 (06:57→18:52)
[2016-12-25] MEDS: UMECLIDINIUM BROMIDE (INCRUSE ELLIPTA) 7'S IH SCH (06:58)
[2016-12-25 09:52] VITALS: BP 134/68
[2016-12-25] MEDS: morphine ER 15 MG (MS CONTIN) TAB PO SCH ×2 (09:53→20:57)
[2016-12-25] MEDS: FUROSEMIDE 40 MG (LASIX) TAB PO SCH (09:53)
[2016-12-25] MEDS: ACYCLOVIR 400 MG TABLET (ZOVIRAX) PO SCH ×2 (09:53→20:56)
[2016-12-25] MEDS: OMEGA 3 (FISH OIL) 1000 MG CAP PO SCH (09:53)
[2016-12-25] MEDS: ENALAPRIL 2.5 MG (VASOTEC) TAB PO SCH (09:53)
[2016-12-25] MEDS: amLODIPine 10 MG (NORVASC) TAB PO SCH (09:53)
[2016-12-25] MEDS: KCL 10 MEQ TAB (MICRO K) PO SCH ×2 (09:53→20:56)
[2016-12-25] MEDS: meTOprolol TARTRATE 50 MG (LOPRESSOR) TAB PO SCH ×2 (09:53→20:56)
[2016-12-25] MEDS: DULoxetine 30 MG (CYMBALTA) CAP PO SCH (09:53)
[2016-12-25] MEDS: GABAPENTIN 600 MG (NEURONTIN) TAB PO SCH (09:53)
[2016-12-25] MEDS: SENNA W/DOCUSATE (SENOKOT S) TABLET PO SCH (09:53)
[2016-12-25] MEDS: DICLOFENAC 1% GEL 100 GM (VOLTAREN) TUBE TOP SCH ×4 (09:55→20:58)
[2016-12-25] MEDS: MAGIC MOUTHWASH (ADULT) PO SCH ×16 (10:00→20:58)
[2016-12-25] MEDS: RT-ALBUTEROL/IPRATROPIUM 3 ML (DUONEB) VIAL IH SCH ×2 (11:00→18:52)
--- NOTE | 2016-12-25 13:34 | Physical Therapy Daily Note ---
PT Daily Note-Current Subjective Pt at EOB, agreeable. Reports (R) glute soreness, "she worked me so hard yesterday". Mental Status Patient Orientation: Person, Place, Time, Situation Attachments: Oxygen Transfers Functional [place] Measure 0=Not Assessed/NA 4=Minimal Assistance 1=Total Assistance 5=Supervision or Setup 2=Maximal Assistance 6=Modified [place] 3=Moderate Assistance 7=Complete IndependenceIRFPAI Quality Coding Scale 6 Independent with activity with or without an assistive device 5 Patient requires set up or clean up by helper. Patient completes activity by themselves 4 Supervision or touching assist (CGA). [place] provide cues , steadying assist 3 The helper provides less than half the effort to complete the activity 2 The helper provides more than half the effort to complete the activity 1 Dependent. The helper does all the effort to complete an activity 7 Patient refused to complete or attempt activity 9 The patient did not perform the activity before the current illness or injury 88 Not attempted due to Medical conditions or safety concerns Sit to/from Stand: 5 Sit to Stand (QC): 5 Weight Bearing Weight Bearing Restriction: Full Weight Bearing Location Restriction: LE Bilateral Gait Training Does the Patient Walk?: Yes Gait (FIM): 5 Distance (FIM): 3=150 ft Distance: 150 Walk 10 feet (QC): 4 Walk 50 ft with 2 Turns(QC): 4 Walk 150 ft (QC): 4 Gait Assistive Device: Walker 4 Wheeled Pt with narrow F[place]A, occasional scissoring but no bobby LOB. Wheelchair Training Does the Pt Use a Wheelchair?: No Exercises Supine Ex: Glut sets, Hip abd/add (Hooklying resisted and S/L clams) Supine Reps: 12 Treatments Gait training with 4WW, LE functional strengthening. Returned to EOB with O2 in situ, needs met. Assessment Current Status: Good Progress Pt tolerated well. (+) (L) Trendelenberg with gait. No bobby LOB but mildly unsteady at times. PT Short Term Goals Short Term Goals Time Frame: Dec 28, 2016 Gait (FIM): 5 PT Retirement Goals Retirement Goals PT Retirement Goals Time Frame: Jan 04, 2017 Transfers (B,C,W/C) (FIM): 7 Sit to Lying (QC): 6 Lying-Sitting on Side/Bed(QC): 6 Sit to Stand (QC): 6 Rollin Roll Left to Right (QC): 6 Chair/[id number]-[id number] Xfer(QC): 6 Car Transfer (QC): 6 Does the Patient Walk: Yes Gait (FIM): 6 Gait distance (FIM): 3=150 ft Walk 10 feet (QC): 6 Walk 10ft-Uneven Surface(QC): 6 Walk 50ft with 2 Turns (QC): 6 Walk 150 ft (QC): 6 Gait Level of Assist: 6 Gait Assistive Device: FWW Does the Pt use WC or Scooter?: No Stairs (FIM): 5 # of Steps: 8 1 Step (curb) (QC): 5 4 Steps (QC): 5 12 Steps (QC): 88 Picking up an Object (QC): 5 PT Plan Problem List Problem List: Activity Tolerance, Functional Strength, Safety, Balance, Gait, Transfer, Bed Mobility Treatment/Plan Treatment Plan: Continue Plan of Care Treatment Plan: Bed Mobility, Education, Functional Activity Shane, Functional Strength, Group Therapy, Gait, Safety, Therapeutic Exercise, Transfers Treatment Duration: Jan 04, 2017 Visits Per Week: 12 Minutes/Day (M-F): 60-90 Minutes/Day (Sat/Celaya): prn Pt/Family Agrees w/Plan: Yes Time/GCodes Time In: 1002 Time Out: 1025 Total Billed Treatment Time: 23 Total Billed Treatment 1, Gt x 15', Ex x 8' G Codes Necessary: No CHERRY ALAMO DPMiguel Dec 25, 2016 13:34
[2016-12-25] MEDS ORDERED: POLYETHYLENE GLYCOL 17 GM (MIRALAX) PACK PO PRN (17:45)
[2016-12-25] MEDS ORDERED: MILK OF MAGNESIA 400 MG/5 ML 30 ML UDC PO PRN (17:45)
[2016-12-25 18:00] VITALS: BP 130/77
[2016-12-25] MEDS: LORATADINE (CLARITIN) 10 MG TAB PO PRN (20:19)
[2016-12-25] MEDS: MONTELUKAST 10 MG (SINGULAIR) TAB PO SCH (20:56)
[2016-12-25] MEDS: GABAPENTIN 300 MG (NEURONTIN) CAP PO SCH (20:56)
[2016-12-25] MEDS: rOPINIRole 0.25 MG (REQUIP) TAB PO SCH (20:56)
[2016-12-25] MEDS: PANTOPRAZOLE 40 MG (PROTONIX) TAB PO SCH (20:56)
[2016-12-25] MEDS: MAGNESIUM OXIDE (MAG-OX)400 MG TAB PO SCH (20:57)
[2016-12-25] MEDS: LATANOPROST 0.005% (XALATAN) OPHTH SOLN 2.5 ML OS SCH (20:58)
[2016-12-26] MEDS: HYDROcodone/APAP 10 MG/325 MG (LORTAB) TAB PO PRN ×4 (03:19→21:47)
[2016-12-26 04:37] VITALS: BP 129/77
[2016-12-26] MEDS: SUCRALFATE 1 GM (CARAFATE) TAB PO SCH ×4 (06:15→20:29)
[2016-12-26] MEDS: metFORMIN 500 MG (GLUCOPHAGE) TAB PO SCH ×2 (06:15→17:10)
[2016-12-26] MEDS: methylPREDNISolone 125 MG (Solu-MEDROL) VIAL IV SCH ×4 (06:15→23:54)
[2016-12-26] MEDS: LEVOTHYROXINE 88 MCG (LEVOTHORID) TAB PO SCH (06:15)
[2016-12-26] MEDS: MULTIVIT W/MINERALS TAB (THERAGRAN M) PO SCH (06:15)
[2016-12-26] MEDS: CALCIUM CARB + VIT D 600 MG (CALCARB + D) TAB PO SCH (06:15)
[2016-12-26] MEDS: RT-ALBUTEROL SULF 2.5 MG/3 ML PRE-MIX VIAL IH SCH ×2 (07:23→15:12)
[2016-12-26] MEDS: RT-ADVAIR HFA 115/21 MCG PER PUFF IH SCH ×2 (07:24→19:42)
[2016-12-26] MEDS: UMECLIDINIUM BROMIDE (INCRUSE ELLIPTA) 7'S IH SCH (07:26)
[2016-12-26] MEDS: ENALAPRIL 2.5 MG (VASOTEC) TAB PO SCH (08:23)
[2016-12-26] MEDS: DULoxetine 30 MG (CYMBALTA) CAP PO SCH (08:23)
[2016-12-26] MEDS: amLODIPine 10 MG (NORVASC) TAB PO SCH (08:23)
[2016-12-26] MEDS: SENNA W/DOCUSATE (SENOKOT S) TABLET PO SCH (08:23)
[2016-12-26] MEDS: OMEGA 3 (FISH OIL) 1000 MG CAP PO SCH (08:23)
[2016-12-26] MEDS: FUROSEMIDE 40 MG (LASIX) TAB PO SCH (08:24)
[2016-12-26] MEDS: ACYCLOVIR 400 MG TABLET (ZOVIRAX) PO SCH ×2 (08:24→20:29)
[2016-12-26] MEDS: meTOprolol TARTRATE 50 MG (LOPRESSOR) TAB PO SCH ×2 (08:24→20:28)
[2016-12-26] MEDS: morphine ER 15 MG (MS CONTIN) TAB PO SCH ×2 (08:24→20:29)
[2016-12-26] MEDS: KCL 10 MEQ TAB (MICRO K) PO SCH ×2 (08:24→20:28)
[2016-12-26] MEDS: GABAPENTIN 600 MG (NEURONTIN) TAB PO SCH (08:24)
[2016-12-26] MEDS: DICLOFENAC 1% GEL 100 GM (VOLTAREN) TUBE TOP SCH ×4 (08:25→20:29)
[2016-12-26] MEDS: MAGIC MOUTHWASH (ADULT) PO SCH ×16 (08:27→20:30)
[2016-12-26] MEDS: RT-ALBUTEROL/IPRATROPIUM 3 ML (DUONEB) VIAL IH SCH ×2 (11:12→19:42)
[2016-12-26 17:50] VITALS: BP 130/69
[2016-12-26] MEDS: MONTELUKAST 10 MG (SINGULAIR) TAB PO SCH (20:27)
[2016-12-26] MEDS: MAGNESIUM OXIDE (MAG-OX)400 MG TAB PO SCH (20:28)
[2016-12-26] MEDS: rOPINIRole 0.25 MG (REQUIP) TAB PO SCH (20:28)
[2016-12-26] MEDS: GABAPENTIN 300 MG (NEURONTIN) CAP PO SCH (20:29)
[2016-12-26] MEDS: PANTOPRAZOLE 40 MG (PROTONIX) TAB PO SCH (20:29)
[2016-12-26] MEDS: LATANOPROST 0.005% (XALATAN) OPHTH SOLN 2.5 ML OS SCH (20:32)
[2016-12-26] MEDS: clonazePAM 0.5 MG (KlonoPIN) TAB PO PRN (21:47)
[2016-12-26] MEDS: CATHETER FLUSH 10 ML SYR IV PRN (23:54)
[2016-12-27] MEDS: HYDROcodone/APAP 10 MG/325 MG (LORTAB) TAB PO PRN ×2 (04:04→20:37)
[2016-12-27 05:10] VITALS: BP 124/66
[2016-12-27] MEDS: metFORMIN 500 MG (GLUCOPHAGE) TAB PO SCH ×2 (06:02→17:53)
[2016-12-27] MEDS: CALCIUM CARB + VIT D 600 MG (CALCARB + D) TAB PO SCH (06:02)
[2016-12-27] MEDS: MULTIVIT W/MINERALS TAB (THERAGRAN M) PO SCH (06:02)
[2016-12-27] MEDS: LEVOTHYROXINE 88 MCG (LEVOTHORID) TAB PO SCH (06:02)
[2016-12-27] MEDS: SUCRALFATE 1 GM (CARAFATE) TAB PO SCH ×4 (06:02→20:35)
[2016-12-27] MEDS: methylPREDNISolone 125 MG (Solu-MEDROL) VIAL IV SCH ×4 (06:02→23:34)
[2016-12-27] MEDS: UMECLIDINIUM BROMIDE (INCRUSE ELLIPTA) 7'S IH SCH (07:18)
[2016-12-27] MEDS: RT-ALBUTEROL SULF 2.5 MG/3 ML PRE-MIX VIAL IH SCH ×2 (07:18→14:27)
[2016-12-27] MEDS: RT-ADVAIR HFA 115/21 MCG PER PUFF IH SCH ×2 (07:18→19:04)
[2016-12-27] MEDS: GABAPENTIN 600 MG (NEURONTIN) TAB PO SCH (08:13)
[2016-12-27] MEDS: OMEGA 3 (FISH OIL) 1000 MG CAP PO SCH (08:13)
[2016-12-27] MEDS: FUROSEMIDE 40 MG (LASIX) TAB PO SCH (08:13)
[2016-12-27] MEDS: meTOprolol TARTRATE 50 MG (LOPRESSOR) TAB PO SCH ×2 (08:14→20:35)
[2016-12-27] MEDS: ACYCLOVIR 400 MG TABLET (ZOVIRAX) PO SCH ×2 (08:14→20:36)
[2016-12-27] MEDS: amLODIPine 10 MG (NORVASC) TAB PO SCH (08:14)
[2016-12-27] MEDS: morphine ER 15 MG (MS CONTIN) TAB PO SCH ×2 (08:14→20:36)
[2016-12-27] MEDS: ENALAPRIL 2.5 MG (VASOTEC) TAB PO SCH (08:14)
[2016-12-27] MEDS: SENNA W/DOCUSATE (SENOKOT S) TABLET PO SCH (08:15)
[2016-12-27] MEDS: KCL 10 MEQ TAB (MICRO K) PO SCH ×2 (08:15→20:34)
[2016-12-27] MEDS: DULoxetine 30 MG (CYMBALTA) CAP PO SCH (08:15)
[2016-12-27] MEDS: DICLOFENAC 1% GEL 100 GM (VOLTAREN) TUBE TOP SCH ×4 (08:29→20:38)
[2016-12-27] MEDS: MAGIC MOUTHWASH (ADULT) PO SCH ×16 (08:30→20:37)
--- NOTE | 2016-12-27 08:49 | Cardiology Progress Note ---
Subjective Date Seen by Provider: Dec 27, 2016 Time Seen by Provider: 08:47 Subjective/Events-last exam Patient with physical therapist. No new complaints. Denies any CP or dyspnea. Denies any dizziness. Review of Systems General: No Night Sweats, No Fatigue, No Malaise HEENT: No Visual Changes, No Dysphasia, No Sore Throat Pulmonary: No Dyspnea, No Cough Cardiovascular: No: Chest Pain, Edema, Palpitations, Paroxysmal Noc. Dyspnea Gastrointestinal: No: Abdominal Pain, Nausea, Vomiting Genitourinary: No Dysuria, No Frequency Musculoskeletal: No: back pain, neck pain Neurological: No: Numbness, Weakness Objective-Cardiology Exam Last Set of Vital Signs Vital Signs 12/27/16 12/27/16 05:10 07:22 Temp 97.0 Pulse 88 Resp 16 B/P (MAP) 124/66 Pulse Ox 98 O2 Delivery Nasal Cannula O2 Flow Rate 3.00 Capillary Refill : I&O Intake and Output 12/27/16 00:00 Intake Total 1250 ml Balance 1250 ml Intake Oral 1250 ml # Voids 8 # Bowel Movements 1 General: Alert, Oriented X3, Cooperative HEENT: Atraumatic, PERRLA Neck: Supple, No JVD, No Thyromegaly Lungs: Clear to Auscultation, Normal Air Movement Heart: Regular Rate, Normal S1, Normal S2, No Murmurs Abdomen: Normal Bowel Sounds, Soft, No Tenderness, No Hepatosplenomegaly, No Masses Extremities: No Clubbing, No Cyanosis, No Edema, Normal Pulses, No Tenderness/ Swelling Skin: No Rashes, No Breakdown, No Significant Lesion, Other (Skin ulcers left leg followed by Dr jnoes lacks full ext rt knee Strength 4/5 all 4 limbs sensation grossly intact) Neuro: Normal Gait, Normal Speech, Strength at 5/5 X4 Ext, Normal Tone, Sensation Intact Psych/Mental Status: Mental Status NL, Mood NL A/P-Cardiology Admission Diagnosis Hypertensive urgency Adrenal crisis CAD dyspnea Assessment/Plan Status post hypertensive emergency, blood pressure better controlled. Continue on current medication monitor blood pressure. Adrenal crisis, on Solu-Medrol IV, improved, managed by primary care physician Change in mental status, improved, continue to monitor Acute shortness of breath, acute respiratory failure, history of severe COPD requiring oxygen, improved, continue current treatment and monitor. Echocardiogram showed normal left ventricular size with ejection fraction 50-55 percent, mild MR, mild TR, PA pressure 30 mmHg. Continue to monitor. History of congestive heart failure with left ventricular systolic dysfunction, ejection fraction is 50-55 percent per echocardiogram, no signs of congestive heart failure at this time. Chest pain nonspecific etiology, mainly tightness in the chest with increasing breathing efforts. Continue to monitor. Coronary artery disease history of cardiac catheterization done in 2012 showing calcified coronary system with moderate disease, 40 percent stenosis in the mid LAD, 30-40 percent stenosis in the midcircumflex artery, nondominant right coronary artery with 50 percent stenosis. 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 Jones, has been restarted on steroids. History of T-cell leukemia, lymphoma diagnosed in 2009 followed and managed by Dr. 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 History of mild bilateral carotid stenosis, last ultrasound was done in March 2013. Continue to monitor History of syncope in the remote past. No further syncopal episodes were reported, had mild dizziness Diabetes mellitus, Followed and managed by Dr. Peace. Continue to monitor. Osteoarthritis Gastroesophageal reflux disease. Hypothyroidism, maintained on Levoxyl, managed by Dr. West. Fibromyalgia. Status post herniated disc surgery, reporting improvement in her back pain and lower extremity numbness and pain. History of peripheral neuropathy Clinical Quality Measures DVT/VTE Risk/Contraindication: Risk Factor Score Per Nursin RFS Level Per Nursing on Admit: 4+=Very High Contraindications-Pharm: Other *list below* Contraindications-Mechi: Other *list below* Other: PT HAS SEVERE BRUISING DUE TO VASCULITIS, COMPRESSION SOCKS OR SCD'S WOULD CAUSE INCREASE INJURY TO TISSUE, LOVENOX WOULD CAUSE INCREASE BRUISING/INJURY TO LEGS CAUSING SKIN BREAKDOWN OLE CONCEPCION Dec 27, 2016 08:48
--- NOTE | 2016-12-27 09:01 | Physical Therapy Daily Note ---
PT Daily Note-Current Subjective Pt. agrees to Rx and feels she is doing much better, much stronger Pain Numeric Pain Scale: 4 Location: Right Location Body Site: Ankle Pain Description: Stabbing Mental Status Patient Orientation: Normal For Age Attachments: Oxygen (3L) Transfers Functional [place] Measure 0=Not Assessed/NA 4=Minimal Assistance 1=Total Assistance 5=Supervision or Setup 2=Maximal Assistance 6=Modified [place] 3=Moderate Assistance 7=Complete IndependenceIRFPAI Quality Coding Scale 6 Independent with activity with or without an assistive device 5 Patient requires set up or clean up by helper. Patient completes activity by themselves 4 Supervision or touching assist (CGA). [place] provide cues , steadying assist 3 The helper provides less than half the effort to complete the activity 2 The helper provides more than half the effort to complete the activity 1 Dependent. The helper does all the effort to complete an activity 7 Patient refused to complete or attempt activity 9 The patient did not perform the activity before the current illness or injury 88 Not attempted due to Medical conditions or safety concerns Transfers (B, C, W/C) (FIM): 6 Scootin Rollin Supine to/from Sit: 6 Sit to/from Stand: 6 Gait Training Does the Patient Walk?: Yes Gait (FIM): 5 Distance (FIM): 3=150 ft (x3) Gait Level of Assist: 5 Gait Persons Needed: 1 Gait Assistive Device: Walker 4 Wheeled Stair Training Stair Training: Handrails/: 2 handrails Stairs (FIM): 5 #of Steps: 12 Stairs: Pattern: Reciprocal Level of Assist: 5 Exercises Supine Ex: Bridging, Ankle pumps, Quad Set, Rolling, Glut sets, Heel Slides, Short Arc Quads, Scooting, Straight leg raise, Hip abd/add Supine Reps: 15 Seated Therapy Exercises: Ankle pumps, Sit to stand, Long arc quads, Hip flexion Seated Reps: 12 Treatments education about elevating LEs above heart Assessment Current Status: Excellent Progress more stable gait , increased indep PT Short Term Goals Short Term Goals Time Frame: Dec 28, 2016 Gait (FIM): 5 PT Hoop Cutter Goals Hoop Cutter Goals PT Mcc Goals Time Frame: Jan 04, 2017 Transfers (B,C,W/C) (FIM): 7 Sit to Lying (QC): 6 Lying-Sitting on Side/Bed(QC): 6 Sit to Stand (QC): 6 Rollin Roll Left to Right (QC): 6 Chair/Dwc-gd-Jqlsu Xfer(QC): 6 Car Transfer (QC): 6 Does the Patient Walk: Yes Gait (FIM): 6 Gait distance (FIM): 3=150 ft Walk 10 feet (QC): 6 Walk 10ft-Uneven Surface(QC): 6 Walk 50ft with 2 Turns (QC): 6 Walk 150 ft (QC): 6 Gait Level of Assist: 6 Gait Assistive Device: FWW Does the Pt use WC or Scooter?: No Stairs (FIM): 5 # of Steps: 8 1 Step (curb) (QC): 5 4 Steps (QC): 5 12 Steps (QC): 88 Picking up an Object (QC): 5 PT Plan Treatment/Plan Treatment Plan: Continue Plan of Care Treatment Plan: Bed Mobility, Education, Functional Activity Shane, Functional Strength, Group Therapy, Gait, Safety, Therapeutic Exercise, Transfers Treatment Duration: Jan 04, 2017 Visits Per Week: 12 Minutes/Day (M-F): 60-90 Minutes/Day (Sat/Celaya): prn Safety Risks/Education Patient Education: Gait Training, Transfer Techniques, Steps, Correct Positioning, Safety Issues Teaching Recipient: Patient Teaching Methods: Demonstration, Discussion Response to Teaching: Verbalize Understanding, Return Demonstration, Reinforcement Needed Time/GCodes Time In: 800 Time Out: 900 Total Billed Treatment Time: 60 Total Billed Treatment 1,GT25m,EX20m,FA15m G Codes Necessary: JULIAN Deleon STRATEGIC PLANNING DIRECTOR Dec 27, 2016 09:01
--- NOTE | 2016-12-27 09:41 | Cardiology Progress Note ---
Subjective Date Seen by Provider: Dec 27, 2016 Time Seen by Provider: 09:10 Subjective/Events-last exam patient is sitting in a chair, feeling better. Denied any chest pain or shortness of breath, reporting improvement. Review of Systems General: No Chills, No Night Sweats, No Fatigue, No Malaise, No Appetite, No Other HEENT: No Head Aches, No Visual Changes, No Eye Pain, No Ear Pain, No Dysphasia , No Sinus Congestion, No Post Nasal Drip, No Sore Throat, No Other Pulmonary: Dyspnea, No Cough, No Pleuritic Chest Pain, No Other Cardiovascular: No: Chest Pain, Edema, Lt Headedness, Orthopnea, Other, Palpitations, Paroxysmal Noc. Dyspnea Objective-Cardiology Exam Last Set of Vital Signs Vital Signs 12/27/16 12/27/16 05:10 07:22 Temp 97.0 Pulse 88 Resp 16 B/P (MAP) 124/66 Pulse Ox 98 O2 Delivery Nasal Cannula O2 Flow Rate 3.00 Capillary Refill : I&O Intake and Output 12/27/16 00:00 Intake Total 1250 ml Balance 1250 ml Intake Oral 1250 ml # Voids 8 # Bowel Movements 1 General: Alert, Oriented X3, Cooperative HEENT: Atraumatic, PERRLA Neck: Supple, No JVD, No Thyromegaly Lungs: Clear to Auscultation, Normal Air Movement Heart: Regular Rate, Normal S1, Normal S2, No Murmurs Abdomen: Normal Bowel Sounds, Soft, No Tenderness, No Hepatosplenomegaly, No Masses Extremities: No Clubbing, No Cyanosis, No Edema, Normal Pulses, No Tenderness/ Swelling Skin: No Rashes, No Breakdown, No Significant Lesion, Other (Skin ulcers left leg followed by Dr jones lacks full ext rt knee Strength 4/5 all 4 limbs sensation grossly intact) Neuro: Normal Gait, Normal Speech, Strength at 5/5 X4 Ext, Normal Tone, Sensation Intact Psych/Mental Status: Mental Status NL, Mood NL A/P-Cardiology Admission Diagnosis Hypertensive urgency Adrenal crisis CAD dyspnea Assessment/Plan Status post hypertensive emergency, blood pressure better controlled. Continue on current medication monitor blood pressure. Status post adrenal crisis, improved, managed by primary care physician. Status post acute shortness of breath, acute respiratory failure, history of severe COPD requiring oxygen, improved, continue current treatment and monitor. Echocardiogram showed normal left ventricular size with ejection fraction 50-55 percent, mild MR, mild TR, PA pressure 30 mmHg. Continue to monitor. History of congestive heart failure with left ventricular systolic dysfunction, ejection fraction is 50-55 percent per echocardiogram, no signs of congestive heart failure at this time. Chest pain nonspecific etiology, mainly tightness in the chest with increasing breathing efforts. Continue to monitor. Coronary artery disease history of cardiac catheterization done in 2012 showing calcified coronary system with moderate disease, 40 percent stenosis in the mid LAD, 30-40 percent stenosis in the midcircumflex artery, nondominant right coronary artery with 50 percent stenosis. 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 Jones, has been restarted on steroids. History of T-cell leukemia, lymphoma diagnosed in 2009 followed and managed by Dr. 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 History of mild bilateral carotid stenosis, last ultrasound was done in March 2013. Continue to monitor History of syncope in the remote past. No further syncopal episodes were reported, had mild dizziness Diabetes mellitus, Followed and managed by Dr. Peace. Continue to monitor. Osteoarthritis Gastroesophageal reflux disease. Hypothyroidism, maintained on Levoxyl, managed by Dr. West. Fibromyalgia. Status post herniated disc surgery, reporting improvement in her back pain and lower extremity numbness and pain. History of peripheral neuropathy Clinical Quality Measures DVT/VTE Risk/Contraindication: Risk Factor Score Per Nursin RFS Level Per Nursing on Admit: 4+=Very High Contraindications-Pharm: Other *list below* Contraindications-Mechi: Other *list below* Other: PT HAS SEVERE BRUISING DUE TO VASCULITIS, COMPRESSION SOCKS OR SCD'S WOULD CAUSE INCREASE INJURY TO TISSUE, LOVENOX WOULD CAUSE INCREASE BRUISING/INJURY TO LEGS CAUSING SKIN BREAKDOWN BRAXTON LAUREN MD Dec 27, 2016 09:41
[2016-12-27] MEDS: RT-ALBUTEROL/IPRATROPIUM 3 ML (DUONEB) VIAL IH SCH ×2 (11:00→19:04)
--- NOTE | 2016-12-27 12:38 | Occupational Ther Daily Note ---
OT Current Status-Daily Note Subjective Pt sitting in chair, agrees to treatment. Pt reports 5/10 pain. Mental Status/Objective Functional [place] Measure 0=Not Assessed/NA 4=Minimal Assistance 1=Total Assistance 5=Supervision or Setup 2=Maximal Assistance 6=Modified [place] 3=Moderate Assistance 7=Complete [place] Attachments: Oxygen ADL-Treatment Pt requests shower today. Pt sit to stand with modified independence. Gait to restroom with 4WW, no LOB noted. Pt doffed clothing with modified independence. Transfer to walk in shower with SBA using grab bars for safety. Bathing tasks completed after set up. PICC line and left ankle covered to prevent getting wet. Pt able to dry all areas. Pt has already gathered clothing prior to shower. Don bra and pullover shirt with modified independence. Pt donned pants and socks with modified independence. Stood at sink to comb hair with modified independence. Pt performed gait to therapy kitchen with 4WW to fill cup with ice. No LOB noted. Functional [place] Measure 0=Not Assessed/NA 4=Minimal Assistance 1=Total Assistance 5=Supervision or Setup 2=Maximal Assistance 6=Modified [place] 3=Moderate Assistance 7=Complete IndependenceIRFPAI Quality Coding Scale 6 Independent with activity with or without an assistive device 5 Patient requires set up or clean up by helper. Patient completes activity by themselves 4 Supervision or touching assist (CGA). [place] provide cues , steadying assist 3 The helper provides less than half the effort to complete the activity 2 The helper provides more than half the effort to complete the activity 1 Dependent. The helper does all the effort to complete an activity 7 Patient refused to complete or attempt activity 9 The patient did not perform the activity before the current illness or injury 88 Not attempted due to Medical conditions or safety concerns Grooming (FIM): 6 Bathing (FIM): 5 Shower/Bathe Self (QC): 5 Upper Body (FIM): 6 Upper Body Dressing (QC): 6 Lower Body Dressing (FIM): 6 Shower Transfer(FIM): 5 Other Treatment Pt performed arm bike x10 minutes to increase overall strength and activity tolerance needed for functional tasks. Pt completed task with slow pace and minimal resistance. No rest breaks needed. Pt performed tabletop peg activity with bilateral UE with 1# weights in place to promote increased strength and coordination. Pt returned to room, sitting EOB with needs met after session. OT Short Term Goals Short Term Goals Time Frame: Dec 28, 2016 Toileting(FIM): 5 Toilet/Commode Transfer(FIM): 5 1=Demonstrate adherence to instructed precautions during ADL tasks. 2=Patient will verbalize/demonstrate understanding of assistive devices/ modifications for ADL. 3=Patient will improve strength/tolerance for activity to enable patient to perform ADL's. OT [place]pwood Cutter Goals [place]pwood Cutter Goals Time Frame: Jan 07, 2017 Eating (FIM): 6 Eating (QC): 6 Groomin Oral Hygiene (QC): 6 Bathing(FIM): 6 Shower/Bathe Self (QC): 6 Upper Body Dressing(FIM): 6 Upper Body Dressing (QC): 6 Lower Body Dressing(FIM): 6 Lower Body Dressing (QC): 6 On/Off Footwear (QC): 6 Toileting(FIM): 6 Toileting Hygiene (QC): 6 Toilet/Commode Transfer(FIM): 6 Toilet/Commode Transfer (QC): 6 Shower Transfer(FIM): 6 Comprehension(FIM): 5 Expression (FIM): 6 Social Interaction(FIM): 6 Problem Solving(FIM): 5 Memory(FIM): 5 Additional Goals: 2-Verbalize Understanding, 3-ImproveStrength/Shane 1=Demonstrate adherence to instructed precautions during ADL tasks. 2=Patient will verbalize/demonstrate understanding of assistive devices/ modifications for ADL. 3=Patient will improve strength/tolerance for activity to enable patient to perform ADL's. OT Education/Plan Problem List/Assessment Pt would benefit from skilled OT to increase her independence in basic self care to allow her to safely return home to live with her family and decrease caregiver burden Discharge Recommendations Plan/Recommendations: Continue POC Treatment Plan/Plan of Care Patient would benefit from OT for education, treatment and training to promote independence in ADL's, mobility, safety and/or upper extremity function for ADL' s. Plan of Care: ADL Retraining, Functional Mobility, Group Exercise/Act as Ind ( education, exercise, funct activities, activity tolerance, memory), UE Funct Exercise/Act, UE Neuromus Re-Ed/Coord Treatment Duration: Jan 07, 2017 Visits Per Week: 10-11 Minutes/Day (M-F): 75-90 Minutes/Day (Sat/Celaya): PRN Agreement: Yes Rehab Potential: Good Time/GCodes Start Time: 09:30 Stop Time: 10:45 Total Time Billed (hr/min): 75 Billed Treatment Time 1 visit, ADLx3(50minutes), EXx2(25minutes) CORTNEY WYLIE OT Dec 27, 2016 12:38
--- NOTE | 2016-12-27 13:49 | Speech Therapy Daily Note ---
Speech Daily Progress Note Subjective Date Seen by Provider: Dec 27, 2016 Time Seen by Provider: 09:00 The patient was seated upright in recliner upon entrance. The patient greeted the clinician appropriately and was agreeable to participation in the cognitive treatment session. Prior to the session, the patient's recent esophagram results were discussed, as well as, swallowing strategies (reviewed). The patient verbalized comprehension of the material and denied additional questions. The clinician followed up with the patient's RN to see if any modifications would be made to the patient's reflux medication to improve current status. Objective Functional Memory Tasks: The patient was read short paragraphs (three to four sentences in length) and immediately asked questions relating to the paragraph. The patient demonstrated good accuracy with this task, displaying 78% accuracy with mild clinician cueing (repetition of stimulus). Assessment Assessment Current Status: Good Progress Treatment Plan Continue Plan of Care Communication Comprehension: 5 Expression: 6 Social Cognition Social Interaction: 6 Problem Solvin Memory: 4 Speech Short Term Goals Short Term Goals Short Term Goals 1. The patient will demonstrate and recall three functional memory strategies for use at home, independently. 2. The patient will recall three to five single items with a functional memory strategy with 80% accuracy and mild clinician cueing. 3. The patient will demonstrate 90% accuracy with safety problem solving. Time Frame-STG: One Week Speech Embedded Systems Software Developer Goals Alf Goals 1. The patient will demonstrate improved cognitive skills (memory) for increased safety and function with ADL's in the least restrictive setting. Time Frame: Two Weeks Comprehension: 5 Expression: 6 Social Interaction: 6 Problem Solvin Memory: 5 Speech-Plan Treatment Plan Speech Therapy Treatment Plan: Continue Plan of Care Continue skilled speech pathology to target functional memory strategies. Treatment Duration: Jan 04, 2017 # of days/week Five. Visits Per Week: Five. Minutes/Day (M-F): 30 Rehab Potential: Good Safety Risks/Education Teaching Recipient: Patient Teaching Methods: Discussion Response to Teaching: Verbalize Understanding Education Topics Provided: Esophagram Results Time Speech Therapy Time In: 09:00 Speech Therapy Time Out: 09:30 Total Billed Time: 30 Billed Treatment Time DIANE Medeiros ELIZABEELIE MADRID Dec 27, 2016 13:49
--- NOTE | 2016-12-27 14:32 | Physical Therapy Daily Note ---
PT Daily Note-Current Subjective Pt. agrees to Rx. Was napping. States she is looking forward to a pass tomorrow to go home as spend some time with her . States she wants to review her HEP Pain Numeric Pain Scale: 0-No Pain Transfers Functional [place] Measure 0=Not Assessed/NA 4=Minimal Assistance 1=Total Assistance 5=Supervision or Setup 2=Maximal Assistance 6=Modified [place] 3=Moderate Assistance 7=Complete IndependenceIRFPAI Quality Coding Scale 6 Independent with activity with or without an assistive device 5 Patient requires set up or clean up by helper. Patient completes activity by themselves 4 Supervision or touching assist (CGA). [place] provide cues , steadying assist 3 The helper provides less than half the effort to complete the activity 2 The helper provides more than half the effort to complete the activity 1 Dependent. The helper does all the effort to complete an activity 7 Patient refused to complete or attempt activity 9 The patient did not perform the activity before the current illness or injury 88 Not attempted due to Medical conditions or safety concerns rolls left and right indep, sup to sit , sit to stand all SBA to mod I Gait Training Gait Assistive Device: Walker 4 Wheeled bed to bthrm and back all SBa with cues for safety managing O2 with extended tubing Exercises Supine Ex: Bridging, Ankle pumps, Quad Set, Rolling, Glut sets, Lower trunk rotation, Heel Slides, Short Arc Quads, Scooting, Straight leg raise, Hip abd/ add Supine Reps: 12 sidelying clam shells as well as sidelying hip abduction Assessment Current Status: Excellent Progress PT Short Term Goals Short Term Goals Time Frame: Dec 28, 2016 Gait (FIM): 5 PT Signals Intelligence Superintendent Goals [facility] Goals PT Signals Intelligence Superintendent Goals Time Frame: Jan 04, 2017 Transfers (B,C,W/C) (FIM): 7 Sit to Lying (QC): 6 Lying-Sitting on Side/Bed(QC): 6 Sit to Stand (QC): 6 Rollin Roll Left to Right (QC): 6 Chair/Zvy-jh-Dxrnz Xfer(QC): 6 Car Transfer (QC): 6 Does the Patient Walk: Yes Gait (FIM): 6 Gait distance (FIM): 3=150 ft Walk 10 feet (QC): 6 Walk 10ft-Uneven Surface(QC): 6 Walk 50ft with 2 Turns (QC): 6 Walk 150 ft (QC): 6 Gait Level of Assist: 6 Gait Assistive Device: FWW Does the Pt use WC or Scooter?: No Stairs (FIM): 5 # of Steps: 8 1 Step (curb) (QC): 5 4 Steps (QC): 5 12 Steps (QC): 88 Picking up an Object (QC): 5 PT Plan Treatment/Plan Treatment Plan: Continue Plan of Care Treatment Plan: Bed Mobility, Education, Functional Activity Shane, Functional Strength, Group Therapy, Gait, Safety, Therapeutic Exercise, Transfers Treatment Duration: Jan 04, 2017 Visits Per Week: 12 Minutes/Day (M-F): 60-90 Minutes/Day (Sat/Celaya): prn Safety Risks/Education Patient Education: Gait Training, Transfer Techniques, Issued Written HEP Teaching Recipient: Patient Teaching Methods: Demonstration, Discussion Response to Teaching: Verbalize Understanding, Return Demonstration, Reinforcement Needed Time/GCodes Time In: 1405 Time Out: 1425 Total Billed Treatment Time: 20 Total Billed Treatment 1,EX20m G Codes Necessary: JULIAN Deleon MANAGER MOTOR Dec 27, 2016 14:32
[2016-12-27 18:25] VITALS: BP 117/70
[2016-12-27] MEDS: LATANOPROST 0.005% (XALATAN) OPHTH SOLN 2.5 ML OS SCH (20:33)
[2016-12-27] MEDS: GABAPENTIN 300 MG (NEURONTIN) CAP PO SCH (20:34)
[2016-12-27] MEDS: MAGNESIUM OXIDE (MAG-OX)400 MG TAB PO SCH (20:35)
[2016-12-27] MEDS: PANTOPRAZOLE 40 MG (PROTONIX) TAB PO SCH (20:36)
[2016-12-27] MEDS: LORATADINE (CLARITIN) 10 MG TAB PO PRN (20:36)
[2016-12-27] MEDS: MONTELUKAST 10 MG (SINGULAIR) TAB PO SCH (20:36)
[2016-12-27] MEDS: clonazePAM 0.5 MG (KlonoPIN) TAB PO PRN (20:36)
[2016-12-27] MEDS: rOPINIRole 0.25 MG (REQUIP) TAB PO SCH (20:36)
[2016-12-28] MEDS: HYDROcodone/APAP 10 MG/325 MG (LORTAB) TAB PO PRN ×3 (03:01→20:42)
[2016-12-28 03:20] VITALS: BP 130/71
[2016-12-28] MEDS: methylPREDNISolone 125 MG (Solu-MEDROL) VIAL IV SCH (06:25)
[2016-12-28] MEDS: metFORMIN 500 MG (GLUCOPHAGE) TAB PO SCH ×2 (06:25→16:13)
[2016-12-28] MEDS: CALCIUM CARB + VIT D 600 MG (CALCARB + D) TAB PO SCH (06:26)
[2016-12-28] MEDS: LEVOTHYROXINE 88 MCG (LEVOTHORID) TAB PO SCH (06:26)
[2016-12-28] MEDS: SUCRALFATE 1 GM (CARAFATE) TAB PO SCH ×4 (06:26→20:46)
[2016-12-28] MEDS: MULTIVIT W/MINERALS TAB (THERAGRAN M) PO SCH (06:26)
[2016-12-28] MEDS: RT-ADVAIR HFA 115/21 MCG PER PUFF IH SCH ×2 (07:08→21:16)
[2016-12-28] MEDS: RT-ALBUTEROL SULF 2.5 MG/3 ML PRE-MIX VIAL IH SCH ×2 (07:08→15:00)
[2016-12-28] MEDS: UMECLIDINIUM BROMIDE (INCRUSE ELLIPTA) 7'S IH SCH (07:09)
--- NOTE | 2016-12-28 08:03 | Physical Therapy Daily Note ---
PT Daily Note-Current Subjective Patient is very agreeable to participate with PT. Patient states she is going on a pass with her family on this date. Pain Numeric Pain Scale: 0-No Pain Location: No Pain Reported Mental Status Patient Orientation: Normal For Age Attachments: Oxygen Transfers Functional [place] Measure 0=Not Assessed/NA 4=Minimal Assistance 1=Total Assistance 5=Supervision or Setup 2=Maximal Assistance 6=Modified [place] 3=Moderate Assistance 7=Complete IndependenceIRFPAI Quality Coding Scale 6 Independent with activity with or without an assistive device 5 Patient requires set up or clean up by helper. Patient completes activity by themselves 4 Supervision or touching assist (CGA). [place] provide cues , steadying assist 3 The helper provides less than half the effort to complete the activity 2 The helper provides more than half the effort to complete the activity 1 Dependent. The helper does all the effort to complete an activity 7 Patient refused to complete or attempt activity 9 The patient did not perform the activity before the current illness or injury 88 Not attempted due to Medical conditions or safety concerns Transfers (B, C, W/C) (FIM): 6 Scootin Rollin Roll Left to Right (QC): 6 Supine to/from Sit: 6 Sit to/from Stand: 6 Sit to Lying (QC): 6 Sit to Stand (QC): 6 Chair/Skd-pu-Fsckm Xfer(QC): 6 Car Transfer (QC): 6 Gait Training Does the Patient Walk?: Yes Gait (FIM): 6 Distance (FIM): 3=150 ft Distance: 250' x 3; 400' x 1 Walk 10 feet (QC): 5 Walk 50 ft with 2 Turns(QC): 5 Walk 150 ft (QC): 5 Walking 10ft/uneven surface-QC: 5 Gait Level of Assist: 6 Gait Assistive Device: Walker 4 Wheeled safe and functional gait sequence Exercises Supine Ex: Ankle pumps, Quad Set, Short Arc Quads, Straight leg raise Supine Reps: 10 Seated Therapy Exercises: Ankle pumps, Long arc quads Seated Reps: 10 NuStep Minutes: 15 NuStep Workload: 4 (to increase cardiopulmonary function with functional mobility) Assessment Patient improving with treatment and is highly motivated with progress. Strengthening being addressed with exercises and NuStep, as well as, cardiopulmonary function with ambulation. PT Short Term Goals Short Term Goals Time Frame: Dec 28, 2016 Gait (FIM): 5 PT Mcc Goals Vp Foundation Goals PT Mcc Goals Time Frame: Jan 04, 2017 Transfers (B,C,W/C) (FIM): 7 Sit to Lying (QC): 6 Lying-Sitting on Side/Bed(QC): 6 Sit to Stand (QC): 6 Rollin Roll Left to Right (QC): 6 Chair/Shs-zi-Tzbpm Xfer(QC): 6 Car Transfer (QC): 6 Does the Patient Walk: Yes Gait (FIM): 6 Gait distance (FIM): 3=150 ft Walk 10 feet (QC): 6 Walk 10ft-Uneven Surface(QC): 6 Walk 50ft with 2 Turns (QC): 6 Walk 150 ft (QC): 6 Gait Level of Assist: 6 Gait Assistive Device: FWW Does the Pt use WC or Scooter?: No Stairs (FIM): 5 # of Steps: 8 1 Step (curb) (QC): 5 4 Steps (QC): 5 12 Steps (QC): 88 Picking up an Object (QC): 5 PT Plan Treatment/Plan Treatment Plan: Continue Plan of Care Treatment Plan: Bed Mobility, Education, Functional Activity Shane, Functional Strength, Group Therapy, Gait, Safety, Therapeutic Exercise, Transfers Treatment Duration: Jan 04, 2017 Visits Per Week: 12 Minutes/Day (M-F): 60-90 Minutes/Day (Sat/Celaya): prn Time/GCodes Time In: 655 Time Out: 755 Total Billed Treatment Time: 60 Total Billed Treatment 1 visit GT x 2 30 min EX x 2 30 min YEVGENIY ROGERS PT Dec 28, 2016 08:03
[2016-12-28] MEDS: SENNA W/DOCUSATE (SENOKOT S) TABLET PO SCH (08:27)
[2016-12-28] MEDS: GABAPENTIN 600 MG (NEURONTIN) TAB PO SCH (08:27)
[2016-12-28] MEDS: OMEGA 3 (FISH OIL) 1000 MG CAP PO SCH (08:27)
[2016-12-28] MEDS: DULoxetine 30 MG (CYMBALTA) CAP PO SCH (08:27)
[2016-12-28] MEDS: ACYCLOVIR 400 MG TABLET (ZOVIRAX) PO SCH ×2 (08:27→20:48)
[2016-12-28] MEDS: KCL 10 MEQ TAB (MICRO K) PO SCH ×2 (08:27→20:52)
[2016-12-28] MEDS: amLODIPine 10 MG (NORVASC) TAB PO SCH (08:27)
[2016-12-28] MEDS: FUROSEMIDE 40 MG (LASIX) TAB PO SCH (08:27)
[2016-12-28] MEDS: ENALAPRIL 2.5 MG (VASOTEC) TAB PO SCH (08:27)
[2016-12-28] MEDS: meTOprolol TARTRATE 50 MG (LOPRESSOR) TAB PO SCH ×2 (08:27→20:48)
[2016-12-28] MEDS: morphine ER 15 MG (MS CONTIN) TAB PO SCH ×2 (08:27→20:44)
[2016-12-28] MEDS: MAGIC MOUTHWASH (ADULT) PO SCH ×16 (09:26→20:54)
[2016-12-28] MEDS: DICLOFENAC 1% GEL 100 GM (VOLTAREN) TUBE TOP SCH ×4 (10:22→20:55)
[2016-12-28] MEDS: RT-ALBUTEROL/IPRATROPIUM 3 ML (DUONEB) VIAL IH SCH ×2 (10:43→21:16)
--- NOTE | 2016-12-28 10:44 | Occupational Ther Daily Note ---
OT Current Status-Daily Note Subjective Pt agrees to therapy, states she will be going on a pass today. Pt reports 5/10 generalized pain. Mental Status/Objective Functional [place] Measure 0=Not Assessed/NA 4=Minimal Assistance 1=Total Assistance 5=Supervision or Setup 2=Maximal Assistance 6=Modified [place] 3=Moderate Assistance 7=Complete [place] Attachments: Oxygen ADL-Treatment Pt requests a shower this morning. Has already gathered clean clothing. Gait to restroom with 4WW, no LOB noted. Pt doffed clothing without assistance. Transferred to walk in shower with modified independence using grab bar. Pt able to wash/dry all areas with modified independence. Don pullover shirt with modified independence. Pt able to don underwear and pants with modified independence. Good balance during pant hike. RN present to change dressing on left ankle following shower. Pt donned bilateral socks with modified independence. Stood at sink to comb hair with modified independence. Functional [place] Measure 0=Not Assessed/NA 4=Minimal Assistance 1=Total Assistance 5=Supervision or Setup 2=Maximal Assistance 6=Modified [place] 3=Moderate Assistance 7=Complete IndependenceIRFPAI Quality Coding Scale 6 Independent with activity with or without an assistive device 5 Patient requires set up or clean up by helper. Patient completes activity by themselves 4 Supervision or touching assist (CGA). [place] provide cues , steadying assist 3 The helper provides less than half the effort to complete the activity 2 The helper provides more than half the effort to complete the activity 1 Dependent. The helper does all the effort to complete an activity 7 Patient refused to complete or attempt activity 9 The patient did not perform the activity before the current illness or injury 88 Not attempted due to Medical conditions or safety concerns Grooming (FIM): 6 Bathing (FIM): 6 Shower/Bathe Self (QC): 6 Upper Body (FIM): 6 Upper Body Dressing (QC): 6 Lower Body Dressing (FIM): 6 Lower Body Dressing (QC): 6 Shower Transfer(FIM): 6 Other Treatment Pt performed bilateral UE exercises to promote increased strength needed for ADLs and transfers. Pt performed shoulder abduction, biceps curls, and triceps extension exercises x15 reps with red theraband. Bilateral hand youth support worker exercises x20 reps with minimal resistance therapy foam. Rest breaks taken between exercises. Pt sitting EOB with needs met after session. OT Short Term Goals Short Term Goals Time Frame: Dec 28, 2016 Toileting(FIM): 5 Toilet/Commode Transfer(FIM): 5 1=Demonstrate adherence to instructed precautions during ADL tasks. 2=Patient will verbalize/demonstrate understanding of assistive devices/ modifications for ADL. 3=Patient will improve strength/tolerance for activity to enable patient to perform ADL's. OT Maths Tutor Goals Senior Living Goals Time Frame: Jan 07, 2017 Eating (FIM): 6 Eating (QC): 6 Groomin Oral Hygiene (QC): 6 Bathing(FIM): 6 Shower/Bathe Self (QC): 6 Upper Body Dressing(FIM): 6 Upper Body Dressing (QC): 6 Lower Body Dressing(FIM): 6 Lower Body Dressing (QC): 6 On/Off Footwear (QC): 6 Toileting(FIM): 6 Toileting Hygiene (QC): 6 Toilet/Commode Transfer(FIM): 6 Toilet/Commode Transfer (QC): 6 Shower Transfer(FIM): 6 Comprehension(FIM): 5 Expression (FIM): 6 Social Interaction(FIM): 6 Problem Solving(FIM): 5 Memory(FIM): 5 Additional Goals: 2-Verbalize Understanding, 3-ImproveStrength/Shane 1=Demonstrate adherence to instructed precautions during ADL tasks. 2=Patient will verbalize/demonstrate understanding of assistive devices/ modifications for ADL. 3=Patient will improve strength/tolerance for activity to enable patient to perform ADL's. OT Education/Plan Problem List/Assessment Pt would benefit from skilled OT to increase her independence in basic self care to allow her to safely return home to live with her family and decrease caregiver burden Discharge Recommendations Plan/Recommendations: Continue POC Treatment Plan/Plan of Care Patient would benefit from OT for education, treatment and training to promote independence in ADL's, mobility, safety and/or upper extremity function for ADL' s. Plan of Care: ADL Retraining, Functional Mobility, Group Exercise/Act as Ind ( education, exercise, funct activities, activity tolerance, memory), UE Funct Exercise/Act, UE Neuromus Re-Ed/Coord Treatment Duration: Jan 07, 2017 Visits Per Week: 10-11 Minutes/Day (M-F): 75-90 Minutes/Day (Sat/Celaya): PRN Agreement: Yes Rehab Potential: Good Time/GCodes Start Time: 08:00 Stop Time: 09:00 Total Time Billed (hr/min): 60 Billed Treatment Time 1 visit, ADLx3(45minutes), Ex(15minutes) CORTNEY WYLIE OT Dec 28, 2016 10:44
--- NOTE | 2016-12-28 10:53 | Occupational Ther Daily Note ---
OT Current Status-Daily Note Subjective Pt in bed, agrees to treatment. Mental Status/Objective Functional [place] Measure 0=Not Assessed/NA 4=Minimal Assistance 1=Total Assistance 5=Supervision or Setup 2=Maximal Assistance 6=Modified [place] 3=Moderate Assistance 7=Complete [place] Attachments: Oxygen ADL-Treatment Functional [place] Measure 0=Not Assessed/NA 4=Minimal Assistance 1=Total Assistance 5=Supervision or Setup 2=Maximal Assistance 6=Modified [place] 3=Moderate Assistance 7=Complete IndependenceIRFPAI Quality Coding Scale 6 Independent with activity with or without an assistive device 5 Patient requires set up or clean up by helper. Patient completes activity by themselves 4 Supervision or touching assist (CGA). [place] provide cues , steadying assist 3 The helper provides less than half the effort to complete the activity 2 The helper provides more than half the effort to complete the activity 1 Dependent. The helper does all the effort to complete an activity 7 Patient refused to complete or attempt activity 9 The patient did not perform the activity before the current illness or injury 88 Not attempted due to Medical conditions or safety concerns Other Treatment Pt supine to sit with modified independence. Sit to stand with modified independence. Gait to therapy gym with 4WW, no LOB noted. Pt completed arm arc activity with 1# weights in place to increase strength needed for functional tasks. Pt fatigues quickly with activity and requires rest breaks. Pt performed fine motor task with nuts and bolts with 1# weights in place on bilateral UE to increase strength and coordination skills. Putty activity with bilateral hands to increase strength. Pt able to remove small beads from putty with slow pace. Pt returned to room, sitting EOB with needs met after session. OT Short Term Goals Short Term Goals Time Frame: Dec 28, 2016 Toileting(FIM): 5 Toilet/Commode Transfer(FIM): 5 1=Demonstrate adherence to instructed precautions during ADL tasks. 2=Patient will verbalize/demonstrate understanding of assistive devices/ modifications for ADL. 3=Patient will improve strength/tolerance for activity to enable patient to perform ADL's. OT Prison Goals Prison Goals Time Frame: Jan 07, 2017 Eating (FIM): 6 Eating (QC): 6 Groomin Oral Hygiene (QC): 6 Bathing(FIM): 6 Shower/Bathe Self (QC): 6 Upper Body Dressing(FIM): 6 Upper Body Dressing (QC): 6 Lower Body Dressing(FIM): 6 Lower Body Dressing (QC): 6 On/Off Footwear (QC): 6 Toileting(FIM): 6 Toileting Hygiene (QC): 6 Toilet/Commode Transfer(FIM): 6 Toilet/Commode Transfer (QC): 6 Shower Transfer(FIM): 6 Comprehension(FIM): 5 Expression (FIM): 6 Social Interaction(FIM): 6 Problem Solving(FIM): 5 Memory(FIM): 5 Additional Goals: 2-Verbalize Understanding, 3-ImproveStrength/Shane 1=Demonstrate adherence to instructed precautions during ADL tasks. 2=Patient will verbalize/demonstrate understanding of assistive devices/ modifications for ADL. 3=Patient will improve strength/tolerance for activity to enable patient to perform ADL's. OT Education/Plan Problem List/Assessment Pt would benefit from skilled OT to increase her independence in basic self care to allow her to safely return home to live with her family and decrease caregiver burden Discharge Recommendations Plan/Recommendations: Continue POC Treatment Plan/Plan of Care Patient would benefit from OT for education, treatment and training to promote independence in ADL's, mobility, safety and/or upper extremity function for ADL' s. Plan of Care: ADL Retraining, Functional Mobility, Group Exercise/Act as Ind ( education, exercise, funct activities, activity tolerance, memory), UE Funct Exercise/Act, UE Neuromus Re-Ed/Coord Treatment Duration: Jan 07, 2017 Visits Per Week: 10-11 Minutes/Day (M-F): 75-90 Minutes/Day (Sat/Celaya): PRN Agreement: Yes Rehab Potential: Good Time/GCodes Start Time: 10:00 Stop Time: 10:30 Total Time Billed (hr/min): 30 Billed Treatment Time 1 visit, EXx2(30minutes) CORTNEY WYLIE OT Dec 28, 2016 10:53
--- NOTE | 2016-12-28 11:53 | Physical Therapy Daily Note ---
PT Daily Note-Current Subjective Patient agrees to PT. Pain Numeric Pain Scale: 0-No Pain Location: No Pain Reported Mental Status Patient Orientation: Normal For Age Attachments: Oxygen Transfers Functional [place] Measure 0=Not Assessed/NA 4=Minimal Assistance 1=Total Assistance 5=Supervision or Setup 2=Maximal Assistance 6=Modified [place] 3=Moderate Assistance 7=Complete IndependenceIRFPAI Quality Coding Scale 6 Independent with activity with or without an assistive device 5 Patient requires set up or clean up by helper. Patient completes activity by themselves 4 Supervision or touching assist (CGA). [place] provide cues , steadying assist 3 The helper provides less than half the effort to complete the activity 2 The helper provides more than half the effort to complete the activity 1 Dependent. The helper does all the effort to complete an activity 7 Patient refused to complete or attempt activity 9 The patient did not perform the activity before the current illness or injury 88 Not attempted due to Medical conditions or safety concerns Transfers (B, C, W/C) (FIM): 6 Scootin Rollin Roll Left to Right (QC): 6 Supine to/from Sit: 6 Sit to/from Stand: 6 Sit to Lying (QC): 6 Sit to Stand (QC): 5 Gait Training Does the Patient Walk?: Yes Gait (FIM): 6 Distance (FIM): 3=150 ft Distance: 150' x 1; 250' x 1 Walk 10 feet (QC): 5 Walk 50 ft with 2 Turns(QC): 5 Walk 150 ft (QC): 5 Gait Level of Assist: 6 Gait Assistive Device: Walker 4 Wheeled safe and functional Exercises Supine Ex: Ankle pumps, Quad Set, Short Arc Quads (2# wt. right LE), Straight leg raise (2# right LE), Hip abd/add (sidelying) Assessment Patient is highly encouraged with progress. Exercises are addressing strengthening bilateral LE's and patient reports much improvement in this. PT Short Term Goals Short Term Goals Time Frame: Dec 28, 2016 Gait (FIM): 5 PT Care Home Goals Care Home Goals PT [employer] Goals Time Frame: Jan 04, 2017 Transfers (B,C,W/C) (FIM): 7 Sit to Lying (QC): 6 Lying-Sitting on Side/Bed(QC): 6 Sit to Stand (QC): 6 Rollin Roll Left to Right (QC): 6 Chair/Ikj-ys-Unvca Xfer(QC): 6 Car Transfer (QC): 6 Does the Patient Walk: Yes Gait (FIM): 6 Gait distance (FIM): 3=150 ft Walk 10 feet (QC): 6 Walk 10ft-Uneven Surface(QC): 6 Walk 50ft with 2 Turns (QC): 6 Walk 150 ft (QC): 6 Gait Level of Assist: 6 Gait Assistive Device: FWW Does the Pt use WC or Scooter?: No Stairs (FIM): 5 # of Steps: 8 1 Step (curb) (QC): 5 4 Steps (QC): 5 12 Steps (QC): 88 Picking up an Object (QC): 5 PT Plan Treatment/Plan Treatment Plan: Continue Plan of Care Treatment Plan: Bed Mobility, Education, Functional Activity Shane, Functional Strength, Group Therapy, Gait, Safety, Therapeutic Exercise, Transfers Treatment Duration: Jan 04, 2017 Visits Per Week: 12 Minutes/Day (M-F): 60-90 Minutes/Day (Sat/Celaya): prn Time/GCodes Time In: 1115 Time Out: 1145 Total Billed Treatment Time: 30 Total Billed Treatment 1 visit EX x 2 30 min YEVGENIY ROGERS PT Dec 28, 2016 11:52
[2016-12-28] MEDS ORDERED: FAMOTIDINE 20 MG (PEPCID) TABLET PO PRN (16:30)
[2016-12-28] MEDS: MAGNESIUM OXIDE (MAG-OX)400 MG TAB PO SCH (20:44)
[2016-12-28] MEDS: clonazePAM 0.5 MG (KlonoPIN) TAB PO PRN (20:44)
[2016-12-28] MEDS: methylPREDNISolone 40 MG/ML (Solu-MEDROL) VIAL IV SCH (20:45)
[2016-12-28] MEDS: rOPINIRole 0.25 MG (REQUIP) TAB PO SCH (20:48)
[2016-12-28] MEDS: PANTOPRAZOLE 40 MG (PROTONIX) TAB PO SCH (20:48)
[2016-12-28] MEDS: GABAPENTIN 300 MG (NEURONTIN) CAP PO SCH (20:48)
[2016-12-28] MEDS: MONTELUKAST 10 MG (SINGULAIR) TAB PO SCH (20:48)
[2016-12-28] MEDS: LATANOPROST 0.005% (XALATAN) OPHTH SOLN 2.5 ML OS SCH (20:55)
[2016-12-28 21:04] VITALS: BP 125/77
[2016-12-29] MEDS: HYDROcodone/APAP 10 MG/325 MG (LORTAB) TAB PO PRN ×3 (04:58→22:34)
[2016-12-29 05:00] VITALS: BP 124/65
[2016-12-29] MEDS: LEVOTHYROXINE 88 MCG (LEVOTHORID) TAB PO SCH (06:28)
[2016-12-29] MEDS: metFORMIN 500 MG (GLUCOPHAGE) TAB PO SCH ×2 (06:28→17:18)
[2016-12-29] MEDS: SUCRALFATE 1 GM (CARAFATE) TAB PO SCH ×4 (06:28→20:34)
[2016-12-29] MEDS: CALCIUM CARB + VIT D 600 MG (CALCARB + D) TAB PO SCH (06:28)
[2016-12-29] MEDS: MULTIVIT W/MINERALS TAB (THERAGRAN M) PO SCH (06:28)
[2016-12-29] MEDS: RT-ALBUTEROL SULF 2.5 MG/3 ML PRE-MIX VIAL IH SCH ×2 (06:41→15:49)
[2016-12-29] MEDS: RT-ADVAIR HFA 115/21 MCG PER PUFF IH SCH ×2 (06:42→19:48)
[2016-12-29] MEDS: UMECLIDINIUM BROMIDE (INCRUSE ELLIPTA) 7'S IH SCH (06:42)
[2016-12-29] MEDS: KCL 10 MEQ TAB (MICRO K) PO SCH ×2 (08:02→20:33)
[2016-12-29] MEDS: DULoxetine 30 MG (CYMBALTA) CAP PO SCH (08:02)
[2016-12-29] MEDS: morphine ER 15 MG (MS CONTIN) TAB PO SCH ×2 (08:02→20:34)
[2016-12-29] MEDS: FUROSEMIDE 40 MG (LASIX) TAB PO SCH (08:02)
[2016-12-29] MEDS: ACYCLOVIR 400 MG TABLET (ZOVIRAX) PO SCH ×2 (08:03→20:34)
[2016-12-29] MEDS: GABAPENTIN 600 MG (NEURONTIN) TAB PO SCH (08:03)
[2016-12-29] MEDS: ENALAPRIL 2.5 MG (VASOTEC) TAB PO SCH (08:03)
[2016-12-29] MEDS: meTOprolol TARTRATE 50 MG (LOPRESSOR) TAB PO SCH ×2 (08:03→20:35)
[2016-12-29] MEDS: MAGIC MOUTHWASH (ADULT) PO SCH ×16 (08:03→20:35)
[2016-12-29] MEDS: SENNA W/DOCUSATE (SENOKOT S) TABLET PO SCH (08:03)
[2016-12-29] MEDS: methylPREDNISolone 40 MG/ML (Solu-MEDROL) VIAL IV SCH (08:03)
[2016-12-29] MEDS: OMEGA 3 (FISH OIL) 1000 MG CAP PO SCH (08:03)
[2016-12-29] MEDS: amLODIPine 10 MG (NORVASC) TAB PO SCH (08:03)
[2016-12-29] MEDS: DICLOFENAC 1% GEL 100 GM (VOLTAREN) TUBE TOP SCH ×4 (08:13→20:36)
--- NOTE | 2016-12-29 08:36 | Cardiology Progress Note ---
Subjective Date Seen by Provider: Dec 29, 2016 Time Seen by Provider: 08:15 Subjective/Events-last exam Patient up out of bed, no new complaints. Denies any CP or dyspnea. Review of Systems General: No Night Sweats, No Fatigue, No Malaise HEENT: No Visual Changes, No Dysphasia, No Sore Throat Pulmonary: No Dyspnea, No Cough Cardiovascular: No: Chest Pain, Edema, Orthopnea, Palpitations, Paroxysmal Noc. Dyspnea Gastrointestinal: No: Abdominal Pain, Nausea, Vomiting Genitourinary: No Dysuria, No Frequency Musculoskeletal: No: back pain, neck pain Neurological: No: Change in speech, Confusion, Numbness, Weakness Objective-Cardiology Exam Last Set of Vital Signs Vital Signs 12/29/16 12/29/16 05:00 06:41 Temp 98.2 Pulse 95 Resp 20 B/P (MAP) 124/65 Pulse Ox 95 O2 Delivery Nasal Cannula O2 Flow Rate 3.00 Capillary Refill : I&O Intake and Output 12/29/16 00:00 Intake Total 400 ml Balance 400 ml Intake Oral 400 ml # Voids 4 General: Alert, Oriented X3, Cooperative HEENT: Atraumatic, PERRLA Neck: Supple, No JVD, No Thyromegaly Lungs: Clear to Auscultation, Normal Air Movement Heart: Regular Rate, Normal S1, Normal S2, No Murmurs Abdomen: Normal Bowel Sounds, Soft, No Tenderness, No Hepatosplenomegaly, No Masses Extremities: No Clubbing, No Cyanosis, No Edema, Normal Pulses, No Tenderness/ Swelling Skin: No Rashes, No Breakdown, No Significant Lesion, Other (Skin ulcers left leg followed by Dr jones lacks full ext rt knee Strength 4/5 all 4 limbs sensation grossly intact) Neuro: Normal Gait, Normal Speech, Strength at 5/5 X4 Ext, Normal Tone, Sensation Intact Psych/Mental Status: Mental Status NL, Mood NL A/P-Cardiology Admission Diagnosis Hypertensive urgency Adrenal crisis CAD dyspnea Assessment/Plan Status post hypertensive emergency, blood pressure better controlled. Continue on current medication monitor blood pressure. Status post adrenal crisis, improved, managed by primary care physician. Status post acute shortness of breath, acute respiratory failure, history of severe COPD requiring oxygen, improved, continue current treatment and monitor. Echocardiogram showed normal left ventricular size with ejection fraction 50-55 percent, mild MR, mild TR, PA pressure 30 mmHg. Continue to monitor. History of congestive heart failure with left ventricular systolic dysfunction, ejection fraction is 50-55 percent per echocardiogram, no signs of congestive heart failure at this time. Chest pain nonspecific etiology, mainly tightness in the chest with increasing breathing efforts. Patient reports improvement. Continue to monitor. Coronary artery disease history of cardiac catheterization done in 2012 showing calcified coronary system with moderate disease, 40 percent stenosis in the mid LAD, 30-40 percent stenosis in the midcircumflex artery, nondominant right coronary artery with 50 percent stenosis. 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 Jones, has been restarted on steroids. History of T-cell leukemia, lymphoma diagnosed in 2009 followed and managed by Dr. 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 History of mild bilateral carotid stenosis, last ultrasound was done in March 2013. Continue to monitor History of syncope in the remote past. No further syncopal episodes were reported, had mild dizziness Diabetes mellitus, Followed and managed by Dr. Peace. Continue to monitor. Osteoarthritis Gastroesophageal reflux disease. Hypothyroidism, maintained on Levoxyl, managed by Dr. West. Fibromyalgia. Status post herniated disc surgery, reporting improvement in her back pain and lower extremity numbness and pain. History of peripheral neuropathy Clinical Quality Measures DVT/VTE Risk/Contraindication: Risk Factor Score Per Nursin RFS Level Per Nursing on Admit: 4+=Very High Contraindications-Pharm: Other *list below* Contraindications-Mechi: Other *list below* Other: PT HAS SEVERE BRUISING DUE TO VASCULITIS, COMPRESSION SOCKS OR SCD'S WOULD CAUSE INCREASE INJURY TO TISSUE, LOVENOX WOULD CAUSE INCREASE BRUISING/INJURY TO LEGS CAUSING SKIN BREAKDOWN OLE CONCEPCION Dec 29, 2016 08:36
[2016-12-29] MEDS ORDERED: PRD20T PO (09:28)
[2016-12-29] MEDS ORDERED: POTA10TA6 PO (09:28)
[2016-12-29] MEDS ORDERED: FAMO20TA5 PO (09:28)
--- NOTE | 2016-12-29 09:32 | Discharge Inst-Complex ---
PDI Med Rec & Follow Up Appt. New Medications: Famotidine (Famotidine) 20 Mg Tablet 20 MG PO DAILY PRN for INDIGESTION for 30 Days, #30 TAB Potassium Chloride (Klor-Con 10) 10 Meq Tablet.er 40 MEQ PO BID for 30 Days, #60 TAB Prednisone (Prednisone) 20 Mg Tab 60 MG PO BID for 30 Days, #100 TAB 1 Refill 3 PILLS BID WITH FOOD X1WK, THEN 2PILLS BID X 1WK THEN 2 PILLS DAILY Continued Medications: Acetaminophen/Caffeine (Excedrin Tension Headache Cplt) 1 Each Tablet 2 TAB PO DAILY PRN for HEADACHE, TAB Acyclovir (Acyclovir) 400 Mg Tablet 400 MG PO BID, TAB Al Hydrox/Mg Hydrox/Simeth (Gaviscon Tablet Chew) 1 Each Tab.chew 2 TAB PO TID PRN for INDIGESTION, TAB.CHEW Albuterol Sulfate (Ventolin Hfa) 18 Gm Hfa.aer.ad 2 PUFF IH QID PRN for SHORTNESS OF BREATH, GM Amlodipine Besylate (Amlodipine Besylate) 10 Mg Tablet 10 MG PO DAILY for 30 Days, #30 TAB 1 Refill Biotin (Biotin) 2,500 Mcg Capsule 2500 MCG PO DAILY, CAP Calcium Carbonate/Vitamin D3 (Calcium + D 600 Mg Tablet) 1 Each Tablet 1 TAB PO DAILY, TAB Clobetasol Propionate (Clobetasol Propionate) 15 Gm Oint...g. TOP DAILY PRN for SORES, EA Clonazepam (Klonopin) 1 Mg Tablet 1-2 MG PO HS, TAB Diclofenac Sodium (Voltaren) 100 Gm Gel..gram. TOP QID, EA APPLY TO KNEES Duloxetine Hcl (Cymbalta) 60 Mg Capsule.dr 60 MG PO DAILY, CAP Enalapril Maleate (Enalapril Maleate) 2.5 Mg Tablet 2.5 MG PO DAILY, TAB Fluticasone/Vilanterol (Breo Ellipta 100-25 Mcg INH) 1 Each Blst.w.dev 1 PUFF IH DAILY, EA Gabapentin (Neurontin) 300 Mg Capsule 600 MG PO DAILY, CAP TAKES 2 (300MG) CAPSULES IN THE MORNING AND 1 (300MG) CAPSULES AT BEDTIME Gabapentin (Gabapentin) 300 Mg Capsule 300 MG PO HS, CAP TAKES 2 (300MG) CAPSULES IN THE MORNING AND TAKES 1 (300MG) CAPSULES AT BEDTIME Hydrocodone/Acetaminophen (Hydrocodon-Acetaminophn 10-325) 1 Each Tablet 1 TAB PO Q4H PRN for PAIN-MODERATE, TAB Ipratropium/Albuterol Sulfate (Iprat-Albut 0.5-3(2.5) mg/3 ml) 3 Ml Ampul.neb 3 ML IH QID PRN for SHORTNESS OF BREATH, INHALER Latanoprost (Latanoprost) 2.5 Ml Drops 1 DROP OS HS, DROPS Levothyroxine Sodium (Levothyroxine Sodium) 88 Mcg Tablet 88 MCG PO DAILY, TAB Loratadine (Loratadine) 10 Mg Tablet 10 MG PO DAILY PRN for ALLERGIES, TAB Magnesium Oxide (Magnesium) 400 Mg Capsule 400 MG PO HS, CAP Metformin HCl (Metformin HCl) 500 Mg Tablet 500 MG PO BID, TAB Metoprolol Tartrate (Metoprolol Tartrate) 50 Mg Tablet 50 MG PO BID for 30 Days, #60 TAB 1 Refill Montelukast Sodium (Singulair) 10 Mg Tablet 10 MG PO HS, TAB Morphine Sulfate (Morphine Sulfate ER) 15 Mg Tablet.er 15 MG PO Q12HR for 30 Days, #60 TAB 1 Refill Multivitamin (Multi Vitamin Daily) 1 Each Tablet 1 TAB PO DAILY, TAB [place]-3 Fatty Acids/Fish Oil ([place]-3 1,000 Mg Softgel) 1 Each Capsule 1000 MG PO DAILY, CAP Pantoprazole Sodium (Pantoprazole Sodium) 40 Mg Tablet.dr 40 MG PO HS, TAB Ropinirole HCl (Ropinirole HCl) 0.25 Mg Tablet 0.25 MG PO HS, TAB Sennosides/Docusate Sodium (Stool Softener Tablet) 1 Each Tablet 2 TAB PO DAILY, TAB Umeclidinium [place] (Incruse Ellipta) 62.5 Mcg Blst.w.dev 1 PUFF IH DAILY Prescription: Transmitted to Pharmacy Activity, Diet and PDI Resume Normal Activity: Yes Discharge Diet: Regular Diet Drink 6-8 Glasses of Fluid/Day: Yes Driving Instructions: No Driving/Refer to Symptoms to Reoprt to : Appetite Changes, Fever Over 101 Degrees F, Pain/ Pressure in Chest, Lightheadedness, Questions/Concerns, Dizziness/Fainting, Shortness of Breath For Problems or Questions: Contact Your Physician, Go to Emergency Room KATIUSKA AGUDELO MD Dec 29, 2016 09:32
--- NOTE | 2016-12-29 09:33 | Progress Note (SOAP) ---
Objective Exam Vital Signs Date Time Temp Pulse Resp B/P (MAP) Pulse Ox O2 Delivery O2 Flow Rate FiO2 12/29/16 09:00 Nasal Cannula 3.00 12/29/16 06:41 95 Nasal Cannula 3.00 12/29/16 05:00 98.2 95 20 124/65 98 Nasal Cannula 3.00 12/28/16 21:19 Nasal Cannula 3.00 12/28/16 21:16 98 Nasal Cannula 3.00 12/28/16 21:04 97.8 96 18 125/77 100 Nasal Cannula 3.00 12/28/16 20:40 Nasal Cannula 3.00 12/28/16 10:44 Nasal Cannula 3.00 I & O 12/29/16 07:00 Intake Total 450 ml Balance 450 ml Capillary Refill : Clinical Quality Measures DVT/VTE Risk/Contraindication: Risk Factor Score Per Nursin RFS Level Per Nursing on Admit: 4+=Very High Contraindications-Pharm: Other *list below* Contraindications-Mechi: Other *list below* Other: PT HAS SEVERE BRUISING DUE TO VASCULITIS, COMPRESSION SOCKS OR SCD'S WOULD CAUSE INCREASE INJURY TO TISSUE, LOVENOX WOULD CAUSE INCREASE BRUISING/INJURY TO LEGS CAUSING SKIN BREAKDOWN KATIUSKA AGUDELO MD Dec 29, 2016 09:33
--- NOTE | 2016-12-29 11:02 | Physical Therapy Daily Note ---
PT Daily Note-Current Subjective Pt. states she feels ready to go home. C/o pain all over at 5/10 and in right knee at 7/10 by end of Rx. Pt. mentioned again that she is ready to go to [facility]. Pain Numeric Pain Scale: 7 Location: Right Location Body Site: Knee Pain Description: Stabbing Mental Status Patient Orientation: Normal For Age Attachments: Oxygen (3L) Transfers Functional [place] Measure 0=Not Assessed/NA 4=Minimal Assistance 1=Total Assistance 5=Supervision or Setup 2=Maximal Assistance 6=Modified [place] 3=Moderate Assistance 7=Complete IndependenceIRFPAI Quality Coding Scale 6 Independent with activity with or without an assistive device 5 Patient requires set up or clean up by helper. Patient completes activity by themselves 4 Supervision or touching assist (CGA). [place] provide cues , steadying assist 3 The helper provides less than half the effort to complete the activity 2 The helper provides more than half the effort to complete the activity 1 Dependent. The helper does all the effort to complete an activity 7 Patient refused to complete or attempt activity 9 The patient did not perform the activity before the current illness or injury 88 Not attempted due to Medical conditions or safety concerns Transfers (B, C, W/C) (FIM): 6 Scootin Rollin Roll Left to Right (QC): 6 Supine to/from Sit: 6 Sit to/from Stand: 6 Sit to Lying (QC): 6 Sit to Stand (QC): 6 Chair/Nvq-xb-Rajat Xfer(QC): 6 Bed to/from Chair: 6 Gait Training Does the Patient Walk?: Yes Gait (FIM): 6 Distance (FIM): 3=150 ft (175x4) Walk 10 feet (QC): 6 Walk 50 ft with 2 Turns(QC): 6 Walk 150 ft (QC): 6 Walking 10ft/uneven surface-QC: 6 Gait Level of Assist: 6 Gait Persons Needed: 0 Gait Assistive Device: Walker 4 Wheeled occas cues for keeping broader FABIOLA and to keep left glut med engaged, practiced many times walking with extended O2 tubing with 4WW, no incident Stair Training Stair Training: Handrails/: 2 handrails Stairs (FIM): 5 #of Steps: 12 1 Step (curb) (QC): 5 4 Steps (QC): 5 12 Steps (QC): 5 Stairs: Pattern: Reciprocal Level of Assist: 5 Balance Special Test Comments pt. at risk for falls , picking up object not advised Exercises Seated Therapy Exercises: Ankle pumps, Sit to stand, Long arc quads, Hip flexion Seated Reps: 12 Treatments toileted mod I Assessment Current Status: Good Progress meets goals PT Short Term Goals Short Term Goals Time Frame: Dec 28, 2016 Gait (FIM): 5 PT Long-Term Goals Long-Term Goals PT Long-Term Goals Time Frame: Jan 04, 2017 Transfers (B,C,W/C) (FIM): 7 Sit to Lying (QC): 6 Lying-Sitting on Side/Bed(QC): 6 Sit to Stand (QC): 6 Rollin Roll Left to Right (QC): 6 Chair/Vyw-es-Ivnzn Xfer(QC): 6 Car Transfer (QC): 6 Does the Patient Walk: Yes Gait (FIM): 6 Gait distance (FIM): 3=150 ft Walk 10 feet (QC): 6 Walk 10ft-Uneven Surface(QC): 6 Walk 50ft with 2 Turns (QC): 6 Walk 150 ft (QC): 6 Gait Level of Assist: 6 Gait Assistive Device: FWW Does the Pt use WC or Scooter?: No Stairs (FIM): 5 # of Steps: 8 1 Step (curb) (QC): 5 4 Steps (QC): 5 12 Steps (QC): 88 Picking up an Object (QC): 5 PT Plan Treatment/Plan Treatment Plan: Continue Plan of Care Treatment Plan: Bed Mobility, Education, Functional Activity Shane, Functional Strength, Group Therapy, Gait, Safety, Therapeutic Exercise, Transfers Treatment Duration: Jan 04, 2017 Visits Per Week: 12 Minutes/Day (M-F): 60-90 Minutes/Day (Sat/Celaya): prn Safety Risks/Education Patient Education: Gait Training, Transfer Techniques, Steps Teaching Recipient: Patient Teaching Methods: Demonstration, Discussion Response to Teaching: Verbalize Understanding, Return Demonstration, Reinforcement Needed (for [place] during gait) Time/GCodes Time In: 1000 Time Out: 1100 Total Billed Treatment Time: 60 Total Billed Treatment 1,GT30m,FA30m G Codes Necessary: JULIAN Deleon JACQUARD LOOM HEDDLES TIER Dec 29, 2016 11:02
[2016-12-29] MEDS: RT-ALBUTEROL/IPRATROPIUM 3 ML (DUONEB) VIAL IH SCH ×2 (11:24→19:48)
--- NOTE | 2016-12-29 11:29 | Speech Therapy Daily Note ---
Speech Daily Progress Note Subjective Date Seen by Provider: Dec 29, 2016 Time Seen by Provider: 09:15 The patient was seated upright in chair upon entrance. The patient greeted the clinician appropriately and was agreeable to participation in the cognitive treatment session. The patient remains pleasant and cooperative throughout the session. Objective Due to the patient's upcoming discharge, a repeat of cognitive function was provided by the clinician with the following results: - Visuospatial/Executive: The patient demonstrated high accuracy with trail- making, cube copying, and clock drawing. - Naming: The patient was able to accurately name three of three black and white photographs. - Memory: The patient was able to recall five of five single words immediately and four of five single words following a five minute delay. - Attention: The patient was able to repeat five single digits forward and three single digits in reverse. - Language: The patient was able to repeat single phrases, find similarities between two items, and state 11 'f' words in one minute. - Orientation: The patient was oriented to date, month, year, day, and place ( independently). The patient demonstrated a score of +28/30 on the [place] Cognitive Assessment correlating to cognitive functions WNL. Assessment Assessment Current Status: Excellent Progress Treatment Plan Continue Plan of Care Communication Comprehension: 6 Expression: 6 Social Cognition Social Interaction: 6 Problem Solvin Memory: 5 Speech Short Term Goals Short Term Goals Short Term Goals 1. The patient will demonstrate and recall three functional memory strategies for use at home, independently. 2. The patient will recall three to five single items with a functional memory strategy with 80% accuracy and mild clinician cueing. 3. The patient will demonstrate 90% accuracy with safety problem solving. Time Frame-STG: One Week Speech [facility] Goals [facility] Goals 1. The patient will demonstrate improved cognitive skills (memory) for increased safety and function with ADL's in the least restrictive setting. Time Frame: Two Weeks Comprehension: 5 Expression: 6 Social Interaction: 6 Problem Solvin Memory: 5 Speech-Plan Treatment Plan Speech Therapy Treatment Plan: Continue Plan of Care Continue skilled speech pathology to target functional memory strategies for use at home. Treatment Duration: Jan 04, 2017 # of days/week Five. Visits Per Week: Five. Minutes/Day (M-F): 30 Rehab Potential: Good Safety Risks/Education Teaching Recipient: Patient Teaching Methods: Discussion Response to Teaching: Verbalize Understanding Education Topics Provided: Progression Towards Goals, Results, Plan of Care Time Speech Therapy Time In: 09:15 Speech Therapy Time Out: 09:45 Total Billed Time: 30 Billed Treatment Time 1, VANNESSA DUENAS Dec 29, 2016 11:29
--- NOTE | 2016-12-29 13:15 | Occupational Ther Daily Note ---
OT Current Status-Daily Note Subjective Pt agreeable to treatment this am. Pt reports 4.5/10 generalized pain. Pt states she enjoyed her pass yesterday and everything went well at home. Mental Status/Objective Functional [place] Measure 0=Not Assessed/NA 4=Minimal Assistance 1=Total Assistance 5=Supervision or Setup 2=Maximal Assistance 6=Modified [place] 3=Moderate Assistance 7=Complete [place] Attachments: Oxygen ADL-Treatment Pt retrieved clothing from closet using 4WW for balance. Gait to restroom with 4WW, no LOB noted. Pt demonstrated ability to perform transfer to BSC over toilet with modified independence using grab bars. Pt states she has been getting up to restroom and completing toileting without assistance. Pt doffed clothing and transferred to walk in shower with modified independence using grab bars. PICC line and left lower leg dressing covered to prevent getting wet during shower. Pt able to wash/dry all areas with modified independence. Pt donned pullover shirt with modified independence. Pt donned underwear and pants with modified independence. Don bilateral socks with modified independence. Pt stood at sink and combed hair with modified independence. Pt states she has already brushed teeth this morning without assistance. Pt performed gait to therapy kitchen with 4WW. Pt retrieved cup of ice and transported it back to her room on 4WW. Functional [place] Measure 0=Not Assessed/NA 4=Minimal Assistance 1=Total Assistance 5=Supervision or Setup 2=Maximal Assistance 6=Modified [place] 3=Moderate Assistance 7=Complete IndependenceIRFPAI Quality Coding Scale 6 Independent with activity with or without an assistive device 5 Patient requires set up or clean up by helper. Patient completes activity by themselves 4 Supervision or touching assist (CGA). [place] provide cues , steadying assist 3 The helper provides less than half the effort to complete the activity 2 The helper provides more than half the effort to complete the activity 1 Dependent. The helper does all the effort to complete an activity 7 Patient refused to complete or attempt activity 9 The patient did not perform the activity before the current illness or injury 88 Not attempted due to Medical conditions or safety concerns Eating (FIM): 7 (Pt reports feeding self, managing containers, and cutting food without assistance) Eating (QC): 6 Grooming (FIM): 6 Oral Hygiene (QC): 6 (Pt reports completing oral care without assistance while standing at sink) Bathing (FIM): 6 Shower/Bathe Self (QC): 6 Upper Body (FIM): 6 Upper Body Dressing (QC): 6 Lower Body Dressing (FIM): 6 Lower Body Dressing (QC): 6 On/Off Footwear (QC): 6 Toileting (FIM): 6 (Pt reports managing clothing and hygiene without assistance ) Toileting Hygiene (QC): 6 Toilet/Commode Transfer (FIM): 6 Toilet Transfer (QC): 6 Shower Transfer(FIM): 6 Other Treatment Pt performed three bilateral UE exercises x15 reps with red theraband to increase strength needed for ADLs and transfers. Rest breaks taken between exercises. Pt sitting in chair with needs met after session. OT Short Term Goals Short Term Goals Time Frame: Dec 28, 2016 Toileting(FIM): 5 Toilet/Commode Transfer(FIM): 5 1=Demonstrate adherence to instructed precautions during ADL tasks. 2=Patient will verbalize/demonstrate understanding of assistive devices/ modifications for ADL. 3=Patient will improve strength/tolerance for activity to enable patient to perform ADL's. OT Snf Goals Preventive Medicine Specialist Goals Time Frame: Jan 07, 2017 Eating (FIM): 6 (met 12/29/16) Eating (QC): 6 (6-MET) Groomin (met 12/29/16) Oral Hygiene (QC): 6 (6-MET) Bathing(FIM): 6 (met 12/29/16) Shower/Bathe Self (QC): 6 (6-MET) Upper Body Dressing(FIM): 6 (met 12/29/16) Upper Body Dressing (QC): 6 (6-MET) Lower Body Dressing(FIM): 6 (met 12/29/16) Lower Body Dressing (QC): 6 (6-MET) On/Off Footwear (QC): 6 (6-MET) Toileting(FIM): 6 (met 12/29/16) Toileting Hygiene (QC): 6 (6-MET) Toilet/Commode Transfer(FIM): 6 (met 12/29/16) Toilet/Commode Transfer (QC): 6 (6-MET) Shower Transfer(FIM): 6 (met 12/29/16) Comprehension(FIM): 5 Expression (FIM): 6 Social Interaction(FIM): 6 Problem Solving(FIM): 5 Memory(FIM): 5 Additional Goals: 2-Verbalize Understanding, 3-ImproveStrength/Shane 1=Demonstrate adherence to instructed precautions during ADL tasks. 2=Patient will verbalize/demonstrate understanding of assistive devices/ modifications for ADL. 3=Patient will improve strength/tolerance for activity to enable patient to perform ADL's. OT Education/Plan Problem List/Assessment Pt would benefit from skilled OT to increase her independence in basic self care to allow her to safely return home to live with her family and decrease caregiver burden Discharge Recommendations Plan/Recommendations: Continue POC Treatment Plan/Plan of Care Patient would benefit from OT for education, treatment and training to promote independence in ADL's, mobility, safety and/or upper extremity function for ADL' s. Plan of Care: ADL Retraining, Functional Mobility, Group Exercise/Act as Ind ( education, exercise, funct activities, activity tolerance, memory), UE Funct Exercise/Act, UE Neuromus Re-Ed/Coord Treatment Duration: Jan 07, 2017 Visits Per Week: 10-11 Minutes/Day (M-F): 75-90 Minutes/Day (Sat/Celaya): PRN Agreement: Yes Rehab Potential: Good Time/GCodes Start Time: 08:00 Stop Time: 09:15 Total Time Billed (hr/min): 75 Billed Treatment Time 1 visit, ADLx4(65minutes), EX(10minutes) CORTNEY WYLIE OT Dec 29, 2016 13:15
--- NOTE | 2016-12-29 13:18 | Cardiology Progress Note ---
Subjective Date Seen by Provider: Dec 29, 2016 Time Seen by Provider: 11:40 Subjective/Events-last exam Patient is laying down in bed, cheerful and feeling well. Expressed that she is going home tomorrow and reporting improvement, have mild edema at her right knee Review of Systems General: No Chills, No Night Sweats, No Fatigue, No Malaise, No Appetite, No Other HEENT: No Head Aches, No Visual Changes, No Eye Pain, No Ear Pain, No Dysphasia , No Sinus Congestion, No Post Nasal Drip, No Sore Throat, No Other Pulmonary: No Dyspnea, No Cough, No Pleuritic Chest Pain, No Other Cardiovascular: No: Chest Pain, Edema, Lt Headedness, Orthopnea, Other, Palpitations, Paroxysmal Noc. Dyspnea Objective-Cardiology Exam Last Set of Vital Signs Vital Signs 12/29/16 12/29/16 05:00 11:24 Temp 98.2 Pulse 95 Resp 20 B/P (MAP) 124/65 Pulse Ox 97 O2 Delivery Nasal Cannula O2 Flow Rate 3.00 Capillary Refill : I&O Intake and Output 12/29/16 00:00 Intake Total 400 ml Balance 400 ml Intake Oral 400 ml # Voids 4 General: Alert, Oriented X3, Cooperative HEENT: Atraumatic, PERRLA Neck: Supple, No JVD, No Thyromegaly Lungs: Clear to Auscultation, Normal Air Movement Heart: Regular Rate, Normal S1, Normal S2, No Murmurs Abdomen: Normal Bowel Sounds, Soft, No Tenderness, No Hepatosplenomegaly, No Masses Extremities: No Clubbing, No Cyanosis, No Edema, Normal Pulses, No Tenderness/ Swelling Skin: No Rashes, No Breakdown, No Significant Lesion, Other (Skin ulcers left leg followed by Dr jones lacks full ext rt knee Strength 4/5 all 4 limbs sensation grossly intact) Neuro: Normal Gait, Normal Speech, Strength at 5/5 X4 Ext, Normal Tone, Sensation Intact Psych/Mental Status: Mental Status NL, Mood NL A/P-Cardiology Admission Diagnosis Hypertensive urgency Adrenal crisis CAD dyspnea Assessment/Plan Status post hypertensive emergency, blood pressure better controlled. Continue on current medication monitor blood pressure. Status post adrenal crisis, improved, managed by primary care physician. Status post acute shortness of breath, acute respiratory failure, history of severe COPD requiring oxygen, improved, continue current treatment and monitor. Echocardiogram showed normal left ventricular size with ejection fraction 50-55 percent, mild MR, mild TR, PA pressure 30 mmHg. Continue to monitor. History of congestive heart failure with left ventricular systolic dysfunction, ejection fraction is 50-55 percent per echocardiogram, no signs of congestive heart failure at this time. Chest pain nonspecific etiology, mainly tightness in the chest with increasing breathing efforts. Patient reports improvement. Continue to monitor. Coronary artery disease history of cardiac catheterization done in 2012 showing calcified coronary system with moderate disease, 40 percent stenosis in the mid LAD, 30-40 percent stenosis in the midcircumflex artery, nondominant right coronary artery with 50 percent stenosis. 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 Jones, has been restarted on steroids. History of T-cell leukemia, lymphoma diagnosed in 2009 followed and managed by Dr. 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 History of mild bilateral carotid stenosis, last ultrasound was done in March 2013. Continue to monitor History of syncope in the remote past. No further syncopal episodes were reported, had mild dizziness Diabetes mellitus, Followed and managed by Dr. Peace. Continue to monitor. Osteoarthritis Gastroesophageal reflux disease. Hypothyroidism, maintained on Levoxyl, managed by Dr. West. Fibromyalgia. Status post herniated disc surgery, reporting improvement in her back pain and lower extremity numbness and pain. History of peripheral neuropathy Clinical Quality Measures DVT/VTE Risk/Contraindication: Risk Factor Score Per Nursin RFS Level Per Nursing on Admit: 4+=Very High Contraindications-Pharm: Other *list below* Contraindications-Mechi: Other *list below* Other: PT HAS SEVERE BRUISING DUE TO VASCULITIS, COMPRESSION SOCKS OR SCD'S WOULD CAUSE INCREASE INJURY TO TISSUE, LOVENOX WOULD CAUSE INCREASE BRUISING/INJURY TO LEGS CAUSING SKIN BREAKDOWN BRAXTON LAUREN MD Dec 29, 2016 13:18
--- NOTE | 2016-12-29 14:22 | Physical Therapy Daily Note ---
PT Daily Note-Current Subjective Pt. agrees to Rx. Wants to review the exercises she could do at home while she is in bed. Hopes to have HC PT and nursing, this was confirmed as ordered. Pain Numeric Pain Scale: 5-Moderate Pain Location: Soft Tissue Location Body Site: Ankle Pain Description: Stabbing Mental Status Patient Orientation: Normal For Age Transfers Functional [place] Measure 0=Not Assessed/NA 4=Minimal Assistance 1=Total Assistance 5=Supervision or Setup 2=Maximal Assistance 6=Modified [place] 3=Moderate Assistance 7=Complete IndependenceIRFPAI Quality Coding Scale 6 Independent with activity with or without an assistive device 5 Patient requires set up or clean up by helper. Patient completes activity by themselves 4 Supervision or touching assist (CGA). [place] provide cues , steadying assist 3 The helper provides less than half the effort to complete the activity 2 The helper provides more than half the effort to complete the activity 1 Dependent. The helper does all the effort to complete an activity 7 Patient refused to complete or attempt activity 9 The patient did not perform the activity before the current illness or injury 88 Not attempted due to Medical conditions or safety concerns all TRFs toilet bed and chair mod I Gait Training Gait Assistive Device: Walker 4 Wheeled 35ftx2 in room for toileting with extended O2 tubing with good safe technique Exercises Supine Ex: Bridging, Ankle pumps, Quad Set, Rolling, Glut sets, Heel Slides, Short Arc Quads, Scooting, Straight leg raise, Hip abd/add Supine Reps: 12 Assessment Current Status: Good Progress meets goals PT Short Term Goals Short Term Goals Time Frame: Dec 28, 2016 Gait (FIM): 5 PT Product Specialist Goals Fdc Goals PT Product Specialist Goals Time Frame: Jan 04, 2017 Transfers (B,C,W/C) (FIM): 7 Sit to Lying (QC): 6 Lying-Sitting on Side/Bed(QC): 6 Sit to Stand (QC): 6 Rollin Roll Left to Right (QC): 6 Chair/Joq-kg-Icbre Xfer(QC): 6 Car Transfer (QC): 6 Does the Patient Walk: Yes Gait (FIM): 6 Gait distance (FIM): 3=150 ft Walk 10 feet (QC): 6 Walk 10ft-Uneven Surface(QC): 6 Walk 50ft with 2 Turns (QC): 6 Walk 150 ft (QC): 6 Gait Level of Assist: 6 Gait Assistive Device: FWW Does the Pt use WC or Scooter?: No Stairs (FIM): 5 # of Steps: 8 1 Step (curb) (QC): 5 4 Steps (QC): 5 12 Steps (QC): 88 Picking up an Object (QC): 5 PT Plan Treatment/Plan Treatment Plan: Continue Plan of Care Treatment Plan: Bed Mobility, Education, Functional Activity Shane, Functional Strength, Group Therapy, Gait, Safety, Therapeutic Exercise, Transfers Treatment Duration: Jan 04, 2017 Visits Per Week: 12 Minutes/Day (M-F): 60-90 Minutes/Day (Sat/Celaya): prn Safety Risks/Education Patient Education: Gait Training, Transfer Techniques Teaching Recipient: Patient Teaching Methods: Demonstration, Discussion Response to Teaching: Verbalize Understanding, Return Demonstration, Reinforcement Needed (for technique and form with exercise) Time/GCodes Time In: 1405 Time Out: 1420 Total Billed Treatment Time: 15 Total Billed Treatment 1,EX15m G Codes Necessary: JULIAN Deleon CLEARANCE REP Dec 29, 2016 14:21
[2016-12-29] MEDS: predniSONE 20 MG TAB PO SCH (17:18)
[2016-12-29 18:57] VITALS: BP 116/70
--- NOTE | 2016-12-29 19:49 | PM & R (SOAP) Progress Note ---
Subjective Time Seen by Provider: 12:45 Subjective/Events-last exam Patient was seen in her room earlier today Patient enjoyed for Day Pass.Patient Modified Independent for adls and mobility skills. Objective Exam Last Set of Vital Signs Vital Signs Date Time Temp Pulse Resp B/P (MAP) Pulse Ox O2 Delivery O2 Flow Rate FiO2 12/29/16 15:49 99 Nasal Cannula 3.00 12/29/16 05:00 98.2 95 20 124/65 Capillary Refill : I&O Intake and Output 12/29/16 00:00 Intake Total 400 ml Balance 400 ml Intake Oral 400 ml # Voids 4 General: Alert, Oriented X3, Cooperative HEENT: Atraumatic, PERRLA Neck: Supple, No JVD, No Thyromegaly Lungs: Clear to Auscultation, Normal Air Movement Heart: Regular Rate, Normal S1, Normal S2, No Murmurs Abdomen: Normal Bowel Sounds, Soft, No Tenderness, No Hepatosplenomegaly, No Masses Extremities: No Clubbing, No Cyanosis, No Edema, Normal Pulses, No Tenderness/ Swelling Skin: No Rashes, No Breakdown, No Significant Lesion, Other (Skin ulcers left leg followed by Dr jones lacks full ext rt knee Strength 4/5 all 4 limbs sensation grossly intact) Neuro: Normal Gait, Normal Speech, Strength at 5/5 X4 Ext, Normal Tone, Sensation Intact Psych/Mental Status: Mental Status NL, Mood NL Assessment/Plan Assessment vasculitis induced peripheral neuropathy Vascular ulcers left leg under the care of DR Jones Chronic steroid usage Adrenal crisis now back on steroids Hx T cell leukemia followed by DR Ahmet De Leon HX of small cell lung ca with mets to parotid gland S/P Chemo and RT 1991 now in remission OA S/P Lum,bar spine surgery DM controlled with meds COPD 02 dependent Hypothyroidism on replacement GERD anemia Hypokalemia while on other unit-now normalized Leukocytosis due to IV solumedrl Plan Continue PT/OT F/U with PCP DR Peace and DR Jones as well as Dr Robertson as per their schedule Team Conference held earlier today See report for Full current level of function as well as POC H&P done by Template as Dictation line out of service since 12/21/16 Rechecked Labs as per above. Overall doing well Discharge set for tomorrow 12/30/16 to home. JEMAL ROMEO MD Dec 29, 2016 19:49
[2016-12-29] MEDS: MONTELUKAST 10 MG (SINGULAIR) TAB PO SCH (20:34)
[2016-12-29] MEDS: GABAPENTIN 300 MG (NEURONTIN) CAP PO SCH (20:34)
[2016-12-29] MEDS: MAGNESIUM OXIDE (MAG-OX)400 MG TAB PO SCH (20:35)
[2016-12-29] MEDS: PANTOPRAZOLE 40 MG (PROTONIX) TAB PO SCH (20:35)
[2016-12-29] MEDS: rOPINIRole 0.25 MG (REQUIP) TAB PO SCH (20:35)
[2016-12-29] MEDS: clonazePAM 0.5 MG (KlonoPIN) TAB PO PRN (20:35)
[2016-12-29] MEDS: LATANOPROST 0.005% (XALATAN) OPHTH SOLN 2.5 ML OS SCH (20:44)
[2016-12-30] MEDS: HYDROcodone/APAP 10 MG/325 MG (LORTAB) TAB PO PRN ×2 (02:41→10:07)
[2016-12-30 05:00] VITALS: BP 110/58
[2016-12-30] MEDS: MULTIVIT W/MINERALS TAB (THERAGRAN M) PO SCH (06:08)
[2016-12-30] MEDS: metFORMIN 500 MG (GLUCOPHAGE) TAB PO SCH (06:08)
[2016-12-30] MEDS: LEVOTHYROXINE 88 MCG (LEVOTHORID) TAB PO SCH (06:08)
[2016-12-30] MEDS: CALCIUM CARB + VIT D 600 MG (CALCARB + D) TAB PO SCH (06:08)
[2016-12-30] MEDS: SUCRALFATE 1 GM (CARAFATE) TAB PO SCH (06:08)
[2016-12-30] MEDS: RT-ALBUTEROL SULF 2.5 MG/3 ML PRE-MIX VIAL IH SCH (07:34)
[2016-12-30] MEDS: RT-ADVAIR HFA 115/21 MCG PER PUFF IH SCH (07:35)
[2016-12-30] MEDS: UMECLIDINIUM BROMIDE (INCRUSE ELLIPTA) 7'S IH SCH (07:36)
--- NOTE | 2016-12-30 08:13 | Therapy Team Discharge Summary ---
Therapy Discharge Summary Discharge Recommendations Date of Discharge December 30, 2016 Therapy D/C Recommendations: Home w/ Family Support Speech-Language Pathology The patient was recently admitted to [facility] following adrenal crisis. Upon admission, the patient demonstrated a mild cognitive impairment in the area of immediate recall and memory. Skilled speech therapy focused on functional memory strategies, safety problem solving, and functional short-term recall. The patient demonstrated excellent progress and met all goals placed by the speech pathologist. The patient will discharge home at this time. No additional speech pathology needs necessary post discharge. PT Manager Customs Goals Manager Customs Goals PT Manager Customs Goals Time Frame: Jan 04, 2017 Transfers (B,C,W/C) (FIM): 7 Roll Left to Right (QC): 6 Sit to Lying (QC): 6 Lying-Sitting on Side/Bed(QC): 6 Sit to Stand (QC): 6 Chair/Wbs-xg-Gaohj Xfer(QC): 6 Car Transfer (QC): 6 Does the Patient Walk: Yes Gait (FIM): 6 Gait distance (FIM): 3=150 ft Walk 10 feet (QC): 6 Walk 10ft-Uneven Surface(QC): 6 Walk 50ft with 2 Turns (QC): 6 Walk 150 ft (QC): 6 Gait Level of Assist: 6 Gait Assistive Device: FWW Does the Pt use WC or Scooter?: No Stairs (FIM): 5 # of Steps: 8 1 Step (curb) (QC): 5 4 Steps (QC): 5 12 Steps (QC): 88 Picking up an Object (QC): 5 OT Manager Customs Goals Group Home Goals Time Frame: Jan 07, 2017 Eating (FIM): 6 (met 12/29/16) Eating (QC): 6 (6-MET) Oral Hygiene (QC): 6 (6-MET) Grooming(FIM): 6 (met 12/29/16) Bathing(FIM): 6 (met 12/29/16) Shower/Bathe Self (QC): 6 (6-MET) Upper Body Dressing(FIM): 6 (met 12/29/16) Upper Body Dressing (QC): 6 (6-MET) Lower Body Dressing(FIM): 6 (met 12/29/16) Lower Body Dressing (QC): 6 (6-MET) On/Off Footwear (QC): 6 (6-MET) Toileting(FIM): 6 (met 12/29/16) Toileting Hygiene (QC): 6 (6-MET) Toilet/Commode Transfer(FIM): 6 (met 12/29/16) Toilet/Commode Transfer (QC): 6 (6-MET) Shower Transfer(FIM): 6 (met 12/29/16) Comprehension(FIM): 5 Expression (FIM): 6 Social Interaction(FIM): 6 Problem Solving(FIM): 5 Memory(FIM): 5 Additional Goals: 2-Verbalize Understanding, 3-ImproveStrength/Shane 1=Demonstrate adherence to instructed precautions during ADL tasks. 2=Patient will verbalize/demonstrate understanding of assistive devices/ modifications for ADL. 3=Patient will improve strength/tolerance for activity to enable patient to perform ADL's. Speech Manager Customs Goals Manager Customs Goals 1. The patient will demonstrate improved cognitive skills (memory) for increased safety and function with ADL's in the least restrictive setting. Time Frame: Two Weeks Comprehension: 5 (MET) Expression: 6 (MET) Social Interaction: 6 (MET) Problem Solvin (MET) Memory: 5 (MET) VANNESSA MONTANO Dec 30, 2016 08:13
--- NOTE | 2016-12-30 08:26 | PM & R (SOAP) Progress Note ---
Subjective Time Seen by Provider: 07:45 Subjective/Events-last exam Patient was seen in her room this AM Has progressed well Appreciate Dr Liu note and orders Objective Exam Last Set of Vital Signs Vital Signs Date Time Temp Pulse Resp B/P (MAP) Pulse Ox O2 Delivery O2 Flow Rate FiO2 12/30/16 07:35 Nasal Cannula 3.00 12/30/16 07:34 98 12/30/16 05:00 96.8 98 18 110/58 Capillary Refill : I&O Intake and Output 12/30/16 00:00 Intake Total 1250 ml Balance 1250 ml Intake Oral 1250 ml # Voids 10 # Bowel Movements 1 General: Alert, Oriented X3, Cooperative HEENT: Atraumatic, PERRLA Neck: Supple, No JVD, No Thyromegaly Lungs: Clear to Auscultation, Normal Air Movement Heart: Regular Rate, Normal S1, Normal S2, No Murmurs Abdomen: Normal Bowel Sounds, Soft, No Tenderness, No Hepatosplenomegaly, No Masses Extremities: No Clubbing, No Cyanosis, No Edema, Normal Pulses, No Tenderness/ Swelling Skin: No Rashes, No Breakdown, No Significant Lesion, Other (Skin ulcers left leg followed by Dr jones lacks full ext rt knee Strength 4/5 all 4 limbs sensation grossly intact) Neuro: Normal Gait, Normal Speech, Strength at 5/5 X4 Ext, Normal Tone, Sensation Intact Psych/Mental Status: Mental Status NL, Mood NL Assessment/Plan Assessment vasculitis induced peripheral neuropathy Vascular ulcers left leg under the care of DR Jones Chronic steroid usage Adrenal crisis now back on steroids 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
[2016-12-30] MEDS: FUROSEMIDE 40 MG (LASIX) TAB PO SCH (09:10)
[2016-12-30] MEDS: OMEGA 3 (FISH OIL) 1000 MG CAP PO SCH (09:10)
[2016-12-30] MEDS: amLODIPine 10 MG (NORVASC) TAB PO SCH (09:10)
[2016-12-30] MEDS: ACYCLOVIR 400 MG TABLET (ZOVIRAX) PO SCH (09:10)
[2016-12-30] MEDS: morphine ER 15 MG (MS CONTIN) TAB PO SCH (09:10)
[2016-12-30] MEDS: meTOprolol TARTRATE 50 MG (LOPRESSOR) TAB PO SCH (09:10)
[2016-12-30] MEDS: ENALAPRIL 2.5 MG (VASOTEC) TAB PO SCH (09:10)
[2016-12-30] MEDS: SENNA W/DOCUSATE (SENOKOT S) TABLET PO SCH (09:11)
[2016-12-30] MEDS: GABAPENTIN 600 MG (NEURONTIN) TAB PO SCH (09:11)
[2016-12-30] MEDS: KCL 10 MEQ TAB (MICRO K) PO SCH (09:11)
[2016-12-30] MEDS: DULoxetine 30 MG (CYMBALTA) CAP PO SCH (09:11)
[2016-12-30] MEDS: predniSONE 20 MG TAB PO SCH (09:11)
[2016-12-30] MEDS: MAGIC MOUTHWASH (ADULT) PO SCH ×4 (09:12)
[2016-12-30] MEDS: DICLOFENAC 1% GEL 100 GM (VOLTAREN) TUBE TOP SCH (09:13)
--- NOTE | 2016-12-30 09:58 | Therapy Team Discharge Summary ---
Therapy Discharge Summary Discharge Recommendations Date of Discharge Therapy D/C Recommendations: Home w/ Family Support Occupational Therapy Pt. has been seen by occupational therapy to increase overall independence and endurance with daily tasks. Pt. has met all goals. Pt. is able to demonstrate ability to complete ADLs with Mod I/I. Pt. plans to discharge home with spouse support. No further OT services warranted at this time, as pt. has met all goals in this rehab setting. 1000 PT Railroad Dining Car Steward/Stewardess Goals Railroad Dining Car Steward/Stewardess Goals PT Mcfp Goals Time Frame: Jan 04, 2017 Transfers (B,C,W/C) (FIM): 7 Roll Left to Right (QC): 6 Sit to Lying (QC): 6 Lying-Sitting on Side/Bed(QC): 6 Sit to Stand (QC): 6 Chair/Jez-ew-Qbozy Xfer(QC): 6 Car Transfer (QC): 6 Does the Patient Walk: Yes Gait (FIM): 6 Gait distance (FIM): 3=150 ft Walk 10 feet (QC): 6 Walk 10ft-Uneven Surface(QC): 6 Walk 50ft with 2 Turns (QC): 6 Walk 150 ft (QC): 6 Gait Level of Assist: 6 Gait Assistive Device: FWW Does the Pt use WC or Scooter?: No Stairs (FIM): 5 # of Steps: 8 1 Step (curb) (QC): 5 4 Steps (QC): 5 12 Steps (QC): 88 Picking up an Object (QC): 5 OT Railroad Dining Car Steward/Stewardess Goals [employer] Dining Car Steward/Stewardess Goals Time Frame: Jan 07, 2017 Eating (FIM): 6 (met 12/29/16) Eating (QC): 6 (6-MET) Oral Hygiene (QC): 6 (6-MET) Grooming(FIM): 6 (met 12/29/16) Bathing(FIM): 6 (met 12/29/16) Shower/Bathe Self (QC): 6 (6-MET) Upper Body Dressing(FIM): 6 (met 12/29/16) Upper Body Dressing (QC): 6 (6-MET) Lower Body Dressing(FIM): 6 (met 12/29/16) Lower Body Dressing (QC): 6 (6-MET) On/Off Footwear (QC): 6 (6-MET) Toileting(FIM): 6 (met 12/29/16) Toileting Hygiene (QC): 6 (6-MET) Toilet/Commode Transfer(FIM): 6 (met 12/29/16) Toilet/Commode Transfer (QC): 6 (6-MET) Shower Transfer(FIM): 6 (met 12/29/16) Comprehension(FIM): 5 (MET) Expression (FIM): 6 (MET) Social Interaction(FIM): 6 (MET) Problem Solving(FIM): 5 (MET) Memory(FIM): 5 (MET) Additional Goals: 2-Verbalize Understanding, 3-ImproveStrength/Shane 1=Demonstrate adherence to instructed precautions during ADL tasks. 2=Patient will verbalize/demonstrate understanding of assistive devices/ modifications for ADL. 3=Patient will improve strength/tolerance for activity to enable patient to perform ADL's. Speech Mcfp Goals Railroad Dining Car Steward/Stewardess Goals 1. The patient will demonstrate improved cognitive skills (memory) for increased safety and function with ADL's in the least restrictive setting. Time Frame: Two Weeks Comprehension: 5 (MET) Expression: 6 (MET) Social Interaction: 6 (MET) Problem Solvin (MET) Memory: 5 (MET) CASS MURRIETA OT Dec 30, 2016 09:58
--- NOTE | 2016-12-30 10:56 | Therapy Team Discharge Summary ---
Therapy Discharge Summary Discharge Recommendations Date of Discharge Therapy D/C Recommendations: Home w/ Family Support Physical Therapy Patient came to rehab with weakness following an adrenal crisis. Upon evaluation patient performed bed mobility with min to mod assist, transfers with min assist, ambulated 150' with a rolling walker with CGA/Remedios, and went up and down 4 steps using 2 handrails with CGA/Remedios. Patient has been performing bed mobility and transfer training, balance and endurance training, functional strengthening, stair training, gait training, and education. Patient has made good progress and has met all of her long-term goals. Now, patient performs bed mobility and transfers with mod I, ambulates 175' with a 4 wheeled walker with mod I (including 50' with at least 2 turns of 90 degrees and 10' over an uneven surface), and can go up and down 12 steps using 2 handrails with SBA. Patient is discharging from this facility today and will be discharged from PT at this time. PT Pet Ambassador Goals Ch[facility] Goals PT Ch[facility] Goals Time Frame: Jan 04, 2017 Transfers (B,C,W/C) (FIM): 7 Roll Left to Right (QC): 6 Sit to Lying (QC): 6 Lying-Sitting on Side/Bed(QC): 6 Sit to Stand (QC): 6 Chair/Lxg-yy-Nfomu Xfer(QC): 6 Car Transfer (QC): 6 Does the Patient Walk: Yes Gait (FIM): 6 Gait distance (FIM): 3=150 ft Walk 10 feet (QC): 6 Walk 10ft-Uneven Surface(QC): 6 Walk 50ft with 2 Turns (QC): 6 Walk 150 ft (QC): 6 Gait Level of Assist: 6 Gait Assistive Device: FWW Does the Pt use WC or Scooter?: No Stairs (FIM): 5 # of Steps: 8 1 Step (curb) (QC): 5 4 Steps (QC): 5 12 Steps (QC): 88 Picking up an Object (QC): 5 OT Pet Ambassador Goals Pet Ambassador Goals Time Frame: Jan 07, 2017 Eating (FIM): 6 (met 12/29/16) Eating (QC): 6 (6-MET) Oral Hygiene (QC): 6 (6-MET) Grooming(FIM): 6 (met 12/29/16) Bathing(FIM): 6 (met 12/29/16) Shower/Bathe Self (QC): 6 (6-MET) Upper Body Dressing(FIM): 6 (met 12/29/16) Upper Body Dressing (QC): 6 (6-MET) Lower Body Dressing(FIM): 6 (met 12/29/16) Lower Body Dressing (QC): 6 (6-MET) On/Off Footwear (QC): 6 (6-MET) Toileting(FIM): 6 (met 12/29/16) Toileting Hygiene (QC): 6 (6-MET) Toilet/Commode Transfer(FIM): 6 (met 12/29/16) Toilet/Commode Transfer (QC): 6 (6-MET) Shower Transfer(FIM): 6 (met 12/29/16) Comprehension(FIM): 5 (MET) Expression (FIM): 6 (MET) Social Interaction(FIM): 6 (MET) Problem Solving(FIM): 5 (MET) Memory(FIM): 5 (MET) Additional Goals: 2-Verbalize Understanding, 3-ImproveStrength/Shane 1=Demonstrate adherence to instructed precautions during ADL tasks. 2=Patient will verbalize/demonstrate understanding of assistive devices/ modifications for ADL. 3=Patient will improve strength/tolerance for activity to enable patient to perform ADL's. Speech Chcf Goals Chcf Goals 1. The patient will demonstrate improved cognitive skills (memory) for increased safety and function with ADL's in the least restrictive setting. Time Frame: Two Weeks Comprehension: 5 (MET) Expression: 6 (MET) Social Interaction: 6 (MET) Problem Solvin (MET) Memory: 5 (MET) [facility] PT Dec 30, 2016 10:56
[2016-12-30 11:58] VITALS: BP 126/70
== END 2016-12-30 12:05 | disposition home health service (06) | DRG 546 ==
LOC: ENPENDDIS 12-31 10:00
PROVIDERS: ADMIT Physical Medicine & Rehabilitation; ATTEND Physical Medicine & Rehabilitation
DX: I77.6 Arteritis, unspecified (principal); G63 Polyneuropathy in diseases classified elsewhere; L97.929 Non-pressure chronic ulcer of unspecified part of left lower leg with unspecified severity; E27.2 Addisonian crisis; I11.0 Hypertensive heart disease with heart failure; I50.20 Unspecified systolic (congestive) heart failure; R07.9 Chest pain, unspecified; C95.90 Leukemia, unspecified not having achieved remission; Z66 Do not resuscitate; C85.90 Non-Hodgkin lymphoma, unspecified, unspecified site; I25.10 Atherosclerotic heart disease of native coronary artery without angina pectoris; I65.23 Occlusion and stenosis of bilateral carotid arteries; E11.9 Type 2 diabetes mellitus without complications; M19.90 Unspecified osteoarthritis, unspecified site; K21.9 Gastro-esophageal reflux disease without esophagitis; E03.9 Hypothyroidism, unspecified; M79.7 Fibromyalgia; J44.9 Chronic obstructive pulmonary disease, unspecified; D64.9 Anemia, unspecified; Z85.118 Personal history of other malignant neoplasm of bronchus and lung; Z99.81 Dependence on supplemental oxygen; Z79.52 Long term (current) use of systemic steroids
CPT/HCPCS: 36415; 74220; 80053; 85007; 85027; 94640; 94664; 94760